=== PATIENT | male | born 1940 | race Caucasian/White ===

== ENCOUNTER 2016-05-26 23:06 | Inpatient (IN) | payer MEDICARE, BC ==
[2016-05-26] MEDS: SODIUM CHLORIDE 0.9% 500 ML IV SCH (23:30)
--- NOTE | 2016-05-26 23:46 | ED ---
General Adult HPI - General Chief complaint: Recheck/Abnormal Lab/Rx Stated complaint: weakness Time Seen by Provider: 05/26/16 23:30 Source: patient, EMS, RN notes reviewed Mode of arrival: EMS Limitations: no limitations - History of Present Illness Initial comments: Patient is a 75-year-old male with a extensive past medical history including pancreatic cancer, severe sepsis, abdominal obstructions, vomiting or embolus him. Patient presents via EMS for 1 evening of shaking and fever and chills. Patient reports that this happened to him in the past when he has had infections with his biliary stent. She reports some epigastric discomfort while lying on his side. Patient denies any nausea or vomiting at this time. Patient just reports feeling very fatigued and weak, and chilled. Patient reports that he's had no Motrin or Tylenol this evening. Patient also reports that over the past week he's had decreased urinary output. Patient denies any recent shortness of breath, chest pain, back pain, nausea vomiting, numbness or tingling, dysuria or hematuria, constipation or diarrhea, headaches or visual changes, or any other current symptoms - Related Data Home Medications Medication Instructions Recorded Confirmed Doxazosin [Cardura] 2 mg PO BID 04/11/16 05/27/16 Finasteride [Proscar] 5 mg PO DAILY 04/11/16 05/27/16 Insulin Glargine,Hum.rec.anlog 64 unit SQ HS 04/11/16 05/27/16 [Lantus Solostar] Omeprazole [PriLOSEC] 40 mg PO DAILY 04/11/16 05/27/16 Rivaroxaban [Xarelto] 20 mg PO DAILY 04/11/16 05/27/16 Sertraline [Zoloft] 50 mg PO DAILY 04/11/16 05/27/16 Simvastatin [Zocor] 20 mg PO HS 04/11/16 05/27/16 Tamsulosin HCl [Flomax] 0.4 mg PO DAILY 04/11/16 05/27/16 metFORMIN HCL 1,000 mg PO BID 04/11/16 05/27/16 Capecitabine [Xeloda] 1,000 mg PO DIRECTED 05/26/16 05/27/16 Magnesium Oxide [Mag-Ox] 400 mg PO DAILY 05/26/16 05/27/16 Allergies Allergy/AdvReac Type Severity Reaction Status Date / Time Penicillins Allergy Itching Verified 05/26/16 23:56 Review of Systems ROS Statement: Those systems with pertinent positive or pertinent negative responses have been documented in the HPI. ROS Other: All systems not noted in ROS Statement are negative. Past Medical History Past Medical History: Cancer, Heart Failure, Diabetes Mellitus, GERD/Reflux, Pulmonary Embolus ([place]) Additional Past Medical History / Comment(s): 10/08/[address] [facility] ER yesterday after having gone to his doctor's appt and was too weak to stand. Pt' s admitting diagnosis is fever and elevated serum alk phos. Pt's last admission was 07/29/14 with sepsis due to ascending cholangitis, fever, severe weakness and bacteremic per blood cultures. Other HX: Pancreatic CA- pt states diagnosed about 2 months ago, PE november 2013, [place] 2001, last chemo july 22 2014, bilateral tinnitis, severe GERD helped with current RX, BPH. Last Myocardial Infarction Date:: 2001 History of Any Multi-Drug Resistant Organisms: None Reported Past Surgical History: Back Surgery, Bowel Resection, Joint Replacement Additional Past Surgical History / Comment(s): [place]renfield filter placed november 2013;, EGD [facility] biliary stenting, 07/2014 ERCP which showed previous biliary stent migration-pt had stent replaced and dilatation, L subclavian mediport, R total hip replacement. "GOO" stent placedment from stomach to intestines. Past Anesthesia/Blood Transfusion Reactions: No Reported Reaction Additional Past Anesthesia/Blood Transfusion Reaction / Comment(s): Pt has never recieved blood. Past Psychological History: Depression Additional Psychological History / Comment(s): Pt states after previous admission and discharge he went to rehab for 6 weeks for strengthening. He is now back home where he lives alone. He is independent. He performs his own ADLs. He uses a walker or cane to ambulate. He drives a car. Patient uses [facility] nurse and home physical therapy. Smoking Status: Former smoker Past Alcohol Use History: None Reported Additional Past Alcohol Use History / Comment(s): Pt states he started smoking at age 11 or 11yrs and quit smoking in 1983. He states he was a 2ppd smoker. Pt states he was a past heavy drinker but has not drank in 2 yrs. Past Drug Use History: None Reported - Past Family History Father Family Medical History: Cancer Additional Family Medical History / Comment(s): Father at age 53 yrs of pancreatic cancer. Mother Family Medical History: No Reported History Additional Family Medical History / Comment(s): Mother lived to be 92 yrs old with no health problems known. General Exam - General Exam Comments Initial Comments: Patient is a 75-year-old male. Patient does not appear to be any acute distress. Patient is very pleasant and talkative. Limitations: no limitations General appearance: alert, in no apparent distress Head exam: Present: atraumatic, normocephalic, normal inspection Eye exam: Present: normal appearance, PERRL, EOMI. Absent: scleral icterus, conjunctival injection, periorbital swelling ENT exam: Present: normal exam, mucous membranes moist Neck exam: Present: normal inspection. Absent: tenderness, meningismus, lymphadenopathy Respiratory exam: Present: normal lung sounds bilaterally. Absent: respiratory distress, wheezes, rales, rhonchi, stridor Cardiovascular Exam: Present: regular rate, normal rhythm, normal heart sounds. Absent: systolic murmur, diastolic murmur, rubs, gallop, clicks GI/Abdominal exam: Present: soft, normal bowel sounds, other (Evidence of recent surgical incision over the umbilicus. Patient reports that this was done for a bowel obstruction at [facility].). Absent: distended, guarding, rebound, rigid Extremities exam: Present: normal inspection, full ROM, normal capillary refill. Absent: tenderness, pedal edema, joint swelling, calf tenderness Back exam: Present: normal inspection Neurological exam: Present: alert, oriented X3, CN II-XII intact Psychiatric exam: Present: normal affect, normal mood Skin exam: Present: warm, dry, intact, normal color. Absent: rash Course Vital Signs 05/26/16 05/27/16 05/27/16 23:22 01:40 02:39 Temperature 99.4 F Pulse Rate 100 95 78 Respiratory 20 18 16 Rate Blood Pressure 117/55 125/63 122/70 O2 Sat by Pulse 96 96 97 Oximetry Medical Decision Making - Medical Decision Making Patient is a 75-year-old male presenting to the with chief complaint of fever and chills and shaking for approximately 1 evening. Patient reports he's had a lengthy medical history including a biliary stent which became infected. Patient reports that the similar symptoms to when he had severe sepsis due to the biliary stent. Patient reports no specific abdominal pain at this time. Patient does have a low-grade fever upon arrival. Patient was given sepsis protocol with a 2 L bolus and IV antibiotics are started. Due to patient being ALLERGIC to penicillins restart patient on Levaquin and metronidazole for abdominal infection coverage. Patient labs are reviewed and are relatively negative except for elevated lactic acid of 4.4. We will repeat lactic acid and cardiac enzymes every 4 hours as directed. Patient's EKG shows no acute abnormalities or changes when reviewed from previous EKGs. Patient will be admitted as inpatient at this time and started on IV antibiotics. CT abdomen and pelvis did note that there are liver masses suspicious for metastatic disease process or inflammatory process. There is also evidence of pneumobilia. They do have stent at the head of the pancreas with drainage into the duodenum. The lung base shows some inflammatory process as well. Patient will be admitted at this time for increased weakness, fever or chills, liver metastases, pancreatic cancer and lactic acidosis. I discussed this case with Dr. Sanchez who reviewed the case with Dr. Olguin will be admitting the patient. - Lab Data Result diagrams: 05/26/16 23:48 05/26/16 23:48 Lab Results 05/26/16 05/26/16 05/26/16 Range/Units 23:48 23:48 23:48 WBC 7.0 (3.8-10.6) k/uL RBC 4.40 (4.30-5.90) m/uL Hgb 11.5 L (13.0-17.5) gm/dL Hct 36.6 L (39.0-53.0) % MCV 83.2 (80.0-100.0) fL MCH 26.1 (25.0-35.0) pg MCHC 31.4 (31.0-37.0) g/dL RDW 17.4 H (11.5-15.5) % Plt Count 161 (150-450) k/uL Neutrophils % 82 % Lymphocytes % 11 % Monocytes % 6 % Eosinophils % 1 % Basophils % 0 % Neutrophils # 5.7 (1.3-7.7) k/uL Lymphocytes # 0.8 L (1.0-4.8) k/uL Monocytes # 0.4 (0-1.0) k/uL Eosinophils # 0.1 (0-0.7) k/uL Basophils # 0.0 (0-0.2) k/uL Anisocytosis Slight PT (9.0-12.0) sec INR (<1.1) APTT (22.0-30.0) sec Sodium 139 (137-145) mmol/L Potassium 4.6 (3.5-5.1) mmol/L Chloride 103 (98-107) mmol/L Carbon Dioxide 22 (22-30) mmol/L Anion Gap 14 mmol/L BUN 10 (9-20) mg/dL Creatinine 0.80 (0.66-1.25) mg/dL Est GFR (MDRD) Af Amer >60 (>60 ml/min/1.73 sqM) Est GFR (MDRD) Non-Af >60 (>60 ml/min/1.73 sqM) Glucose 214 H (74-99) mg/dL Plasma Lactic Acid Terry (0.7-2.0) mmol/L Calcium 9.0 (8.4-10.2) mg/dL Total Bilirubin 0.6 (0.2-1.3) mg/dL AST 22 (17-59) U/L ALT 24 (21-72) U/L Alkaline Phosphatase 192 H (38-126) U/L Total Creatine Kinase 59 (55-170) U/L CK-MB (CK-2) 1.5 (0.0-2.4) ng/mL CK-MB (CK-2) Rel Index 2.5 Troponin I <0.012 (0.000-0.034) ng/mL Total Protein 6.8 (6.3-8.2) g/dL Albumin 3.5 (3.5-5.0) g/dL Cortisol 27 ug/dL Urine Color Urine Appearance (Clear) Urine pH (5.0-8.0) Ur Specific [place] (1.001-1.035) Urine Protein (Negative) Urine Glucose (UA) (Negative) Urine Ketones (Negative) Urine Blood (Negative) Urine Nitrate (Negative) Urine Bilirubin (Negative) Urine Urobilinogen (<2.0) mg/dL Ur Leukocyte Esterase (Negative) 05/26/16 05/26/16 05/27/16 Range/Units 23:48 23:48 01:00 WBC (3.8-10.6) k/uL RBC (4.30-5.90) m/uL Hgb (13.0-17.5) gm/dL Hct (39.0-53.0) % MCV (80.0-100.0) fL MCH (25.0-35.0) pg MCHC (31.0-37.0) g/dL RDW (11.5-15.5) % Plt Count (150-450) k/uL Neutrophils % % Lymphocytes % % Monocytes % % Eosinophils % % Basophils % % Neutrophils # (1.3-7.7) k/uL Lymphocytes # (1.0-4.8) k/uL Monocytes # (0-1.0) k/uL Eosinophils # (0-0.7) k/uL Basophils # (0-0.2) k/uL Anisocytosis PT 15.3 H (9.0-12.0) sec INR 1.6 (<1.1) APTT 29.2 (22.0-30.0) sec Sodium (137-145) mmol/L Potassium (3.5-5.1) mmol/L Chloride (98-107) mmol/L Carbon Dioxide (22-30) mmol/L Anion Gap mmol/L BUN (9-20) mg/dL Creatinine (0.66-1.25) mg/dL Est GFR (MDRD) Af Amer (>60 ml/min/1.73 sqM) Est GFR (MDRD) Non-Af (>60 ml/min/1.73 sqM) Glucose (74-99) mg/dL Plasma Lactic Acid Terry 4.4 H* (0.7-2.0) mmol/L Calcium (8.4-10.2) mg/dL Total Bilirubin (0.2-1.3) mg/dL AST (17-59) U/L ALT (21-72) U/L Alkaline Phosphatase (38-126) U/L Total Creatine Kinase (55-170) U/L CK-MB (CK-2) (0.0-2.4) ng/mL CK-MB (CK-2) Rel Index Troponin I (0.000-0.034) ng/mL Total Protein (6.3-8.2) g/dL Albumin (3.5-5.0) g/dL Cortisol ug/dL Urine Color Yellow Urine Appearance Clear (Clear) Urine pH 5.0 (5.0-8.0) Ur Specific [place] 1.012 (1.001-1.035) Urine Protein Negative (Negative) Urine Glucose (UA) Negative (Negative) Urine Ketones Negative (Negative) Urine Blood Negative (Negative) Urine Nitrate Negative (Negative) Urine Bilirubin Negative (Negative) Urine Urobilinogen <2.0 (<2.0) mg/dL Ur Leukocyte Esterase Negative (Negative) 05/27/16 00:50 EKG shows sinus tachycardia with PACs. There is evidence of left axis deviation. Also a right bundle cortney block. Ventricular rate of 105 bpm. PA interval 154 ms. QRS duration 116 ms. QTC is 356/470 ms. - Radiology Data Radiology results: report reviewed Chest x-ray shows no acute cardiopulmonary process. No significant interval change. CT abdomen and pelvis shows liver masses are suspicious for metastatic disease process or inflammatory process. There is pneumobilia. Extend again is in the head of the pancreas with drainage into the duodenum. There is reticular nodule pattern of the left lung base probably related to the plantar process of her metastatic process cannot be excluded. Stable benign-appearing sister and the spleen. The right total hip arthroplasty. Colonic diverticulosis. No significant interval change. Disposition Clinical Impression: Lactic acidosis, Pancreatic cancer metastasized to liver, Rigors, Fever, Weakness generalized, Fever in adult, Elevated alkaline phosphatase level, Abnormal blood sugar Disposition: ADMITTED IP TO THIS HOSP Condition: Stable Time of Disposition: 02:51
[2016-05-26] MEDS ORDERED: ACETAMINOPHEN IV (For NPO) 1,000 MG in EMPTY BAG 1 BAG IVPB STA (23:50)
[2016-05-26 23:57] LABS: Anisocytosis Slight; Basophils % (A) 0 %; CH 26.5; Eosinophils # (A) 0.1 k/uL (0-0.7); Eosinophils % (A) 1 %; HCT 36.6 % (39.0-53.0); HDW 2.71; HGB 11.5 gm/dL (13.0-17.5); Luc # (Auto) 0.03; Luc % (Auto) 0; Lymphocytes # (A) 0.8 k/uL (1.0-4.8); Lymphocytes % (A) 11 %; MCH 26.1 pg (25.0-35.0); MCHC 31.4 g/dL (31.0-37.0); MCV 83.2 fL (80.0-100.0); Mean Platelet Volume 8.8; Monocytes # (A) 0.4 k/uL (0-1.0); Monocytes % (A) 6 %; Neutrophils # (A) 5.7 k/uL (1.3-7.7); Neutrophils % (A) 82 %; RDW 17.4 % (11.5-15.5); WBC (Perox) 7.18
[2016-05-27 00:09] LABS: ALT 24 U/L (21-72); AST 22 U/L (17-59); Alkaline Phosphatase 192 U/L (38-126); Anion Gap 14 mmol/L; Blood Urea Nitrogen 10 mg/dL (9-20); Carbon Dioxide 22 mmol/L (22-30); Chloride 103 mmol/L (98-107); Glucose 214 mg/dL (74-99); Non-African American GFR(MDRD) >60 (>60 ml/min/1.73 sqM); Potassium 4.6 mmol/L (3.5-5.1); Sodium 139 mmol/L (137-145); Total Bilirubin 0.6 mg/dL (0.2-1.3); Total Protein 6.8 g/dL (6.3-8.2)
[2016-05-27 00:15] LABS: INR 1.6 (<1.1); Partial Thromboplastin Time 29.2 sec (22.0-30.0); Prothrombin Time 15.3 sec (9.0-12.0)
[2016-05-27 00:17] LABS: Creatine Kinase 59 U/L (55-170)
[2016-05-27 00:30] LABS: Creatine Kinase MB 1.5 ng/mL (0.0-2.4); Troponin I <0.012 ng/mL (0.000-0.034)
[2016-05-27] MEDS: SODIUM CHLORIDE 0.9% 500 ML IV SCH (00:31)
[2016-05-27] MEDS ORDERED: RX INFO: IV CONTRAST WAS GIVEN 1 EACH MISC MISCELLANE PRN (00:39)
[2016-05-27 01:22] LABS: Appearance,Urine Clear (Clear); Bilirubin,Urine Negative (Negative); Glucose,Urine (UA) Negative (Negative); Ketones,Urine Negative (Negative); Leukocyte Esterase,Urine Negative (Negative); Nitrite,Urine Negative (Negative); Protein,Urine Negative (Negative); Specific Gravity,Urine 1.012 (1.001-1.035); UA Billing (MACRO vs. MICRO) CHEM; Urobilinogen,Urine <2.0 mg/dL (<2.0)
--- NOTE | 2016-05-27 01:25 | XR ---
EXAMINATION TYPE: XR chest 2V DATE OF EXAM: 05/27/2016 12:50 AM COMPARISON: April 11, 2016 HISTORY: Weakness abnormal labs fever. TECHNIQUE: Frontal and lateral views of the chest are obtained. FINDINGS: Left-sided Mediport catheter is noted in place. Mild chronic interstitial lung changes are suggested bilaterally. There is no focal air space opacity, pleural effusion, or pneumothorax seen. The cardiac silhouette size is within normal limits. The osseous structures are intact. IMPRESSION: No acute cardiopulmonary process. No significant interval change. Chronic interstitial lung changes are suggested bilaterally.
--- NOTE | 2016-05-27 01:39 | CT ---
EXAMINATION TYPE: CT abdomen pelvis w con DATE OF EXAM: 05/27/2016 1:13 AM COMPARISON: April 12, 2016. HISTORY: weakness, abnormal labs, hx of pancreatic ca with stents placed. CT DLP: 1188.0 mGycm Automated exposure control for dose reduction was used. TECHNIQUE: Helical acquisition of images was performed from the lung bases through the pelvis. CONTRAST: Performed without Oral Contrast and with IV Contrast, patient injected with 100 mL of Omnipaque 300. FINDINGS: LUNG BASES: Again noted are reticulonodular pattern of left lung base and is probably related to infl ammatory process. Underlying metastatic disease process in the left lung base cannot be excluded. LIVER/GB: There is no significant change in the pneumobilia with air collection in the biliary ducts. Low-density areas are noted in the liver in the axial image 34 and possibility of metastatic disease process of liver cannot be excluded. The changes could also be related to inflammatory process. PANCREAS: No significant change is noted in the stent in the head of the pancreas draining into the d uodenum. Small area of pancreas is noted without significant change and with known history of pancrea tic carcinoma with possible postsurgical changes. SPLEEN: Small stable cystic lesion is noted in the spleen measuring 1.8 cm and is probably a benign c yst. ADRENALS: Right adrenal gland appears unremarkable. Stable nodularity is noted in the left adrenal gl and. KIDNEYS: No significant abnormality is seen. RETROPERITONEAL ADENOPATHY: None visualized IVC filter is noted in place. Atherosclerotic calcification is noted in the abdominal aorta and iliac arteries with atelectatic domingo nges in the distal abdominal aorta. REPRODUCTIVE ORGANS: No significant abnormality is seen URINARY BLADDER: No significant abnormality is seen. PELVIC ADENOPATHY: None visualized. OSSEOUS STRUCTURES: Postsurgical changes of right total hip arthroplasty. BOWEL: Colonic diverticulosis is noted. Moderate amount of fecal material is noted in the colon. Mathew endix appears unremarkable. OTHER: IMPRESSION: 1. Liver masses are noted suspicious for metastatic disease process or inflammatory process. There is pneumobilia. 2. Stent is again noted in the head of the pancreas with drainage into the duodenum. 3. Stable reticulonodular pattern of left lung base probably related to inflammatory process however metastatic process cannot be excluded. 4. Stable benign-appearing cyst in the spleen. 5. Right total hip arthroplasty. 6. Colonic diverticulosis. 7. No significant interval change.
--- NOTE | 2016-05-27 02:02 | XR ---
EXAMINATION TYPE: XR KUB DATE OF EXAM: 05/27/2016 12:50 AM CLINICAL HISTORY: Weakness abnormal labs fever history of pancreatic stents. TECHNIQUE: 2 frontal supine radiographs of abdomen were obtained. COMPARISON: None. FINDINGS: Scattered gas is seen in non-distended small bowel loops. Gas and fecal material is seen in non-distended colon. There is no visceromegaly, pneumoperitoneum, or abnormal calcification appr eciated. The lung bases are clear and the osseous structures are intact. Cholecystectomy changes are noted. Moderate degenerative changes are present in the thoracolumbar spi ne with S-shaped scoliosis. IVC filter is noted. Total right hip arthroplasty changes are noted. IMPRESSION: Overall nonobstructive bowel gas pattern.
[2016-05-27] MEDS ORDERED: metroNIDAZOLE-NS PMX 500 MG in SALINE 1 100ML.BAG IVPB STA (02:03)
[2016-05-27] MEDS ORDERED: LEVOFLOXACIN 750MG-D5W PMX 750 MG in DEXTROSE/WATER 1 150ML.BAG IVPB STA (02:05)
[2016-05-27] MEDS ORDERED: SODIUM CHLORIDE 0.9% 2,000 ML IV ONE (02:14)
[2016-05-27] MEDS ORDERED: HYDROmorphone 1 MG/ML 1 ML SYRINGE IV PRN (02:26)
[2016-05-27] MEDS ORDERED: ALPRAZolam 0.25 MG TAB PO PRN (02:26)
[2016-05-27] MEDS ORDERED: NALOXONE 0.4 MG/ML 1 ML VIAL IV PRN (02:26)
[2016-05-27] MEDS ORDERED: KETOROLAC 30 MG/ML 1 ML VIAL IVP PRN (02:26)
[2016-05-27] MEDS ORDERED: NON-FORMULARY DRUG (Capecitabine [Xeloda] 1,000 MG) PO SCH (02:45)
[2016-05-27 04:41] LABS: Creatine Kinase 53 U/L (55-170)
[2016-05-27 04:55] LABS: Creatine Kinase MB 0.9 ng/mL (0.0-2.4); Troponin I <0.012 ng/mL (0.000-0.034)
[2016-05-27 07:48] LABS: Glucose,Whole Blood 175 mg/dL (75-99)
[2016-05-27] MEDS: INSULIN LISPRO (humaLOG) 300 UNIT/3 ML VIAL SQ SCH ×3 (08:39→17:39)
[2016-05-27] MEDS: SODIUM CHLORIDE 0.9% 1,000 ML IV SCH ×3 (08:41→17:44)
[2016-05-27] MEDS: metFORMIN 500 MG TAB PO SCH ×2 (10:01→17:39)
[2016-05-27] MEDS: DOXAZOSIN 2 MG TAB PO SCH ×2 (10:01→21:03)
[2016-05-27 10:02] LABS: Hemoglobin A1C 6.8 % (4.2-6.1)
[2016-05-27] MEDS: PANTOPRAZOLE 40 MG TABLET PO SCH (10:02)
[2016-05-27] MEDS: TAMSULOSIN 0.4 MG CAP.ER.24H PO SCH (10:02)
[2016-05-27] MEDS: SERTRALINE 50 MG TAB PO SCH (10:03)
[2016-05-27] MEDS: FINASTERIDE 5 MG TAB PO SCH (10:03)
[2016-05-27] MEDS: MAGNESIUM OXIDE 400 MG TAB PO SCH (10:03)
[2016-05-27 12:55] LABS: Glucose,Whole Blood 94 mg/dL (75-99)
[2016-05-27 13:06] LABS: Creatine Kinase 44 U/L (55-170)
[2016-05-27 13:16] LABS: Troponin I <0.012 ng/mL (0.000-0.034)
[2016-05-27] MEDS: metroNIDAZOLE-NS PMX 500 MG in SALINE 1 100ML.BAG IVPB SCH ×3 (13:36→23:31)
--- NOTE | 2016-05-27 14:32 | P.HPIM ---
History of Present Illness H&P Date: 05/27/16 Chief Complaint: Chills and tremors Past Medical History Past Medical History: Cancer, Heart Failure, Diabetes Mellitus, GERD/Reflux, Myocardial Infarction ([place]), Osteoarthritis (OA), Pneumonia, Prostate Disorder, Pulmonary Embolus (PE) Additional Past Medical History / Comment(s): Pt admitted 04/11/16 with gram negative bacteremia, left lower pneumonia. Other medical hx: sepsis, pancreatic CA with past IV chemo and now oral chemo, gastric outlet obstruction , PE november 2013, [place] 2001, bilateral tinnitis, severe GERD, BPH, arthritis lower back with chronic back pain, . Last Myocardial Infarction Date:: 2001 History of Any Multi-Drug Resistant Organisms: None Reported Past Surgical History: Back Surgery, Bowel Resection, Joint Replacement Additional Past Surgical History / Comment(s): ivet filter placed november 2013;, EGD wt biliary stenting, 07/2014 ERCP which showed previous biliary stent migration-pt had stent replaced and dilatation, colonoscopy, L subclavian mediport, R total hip replacement. "GOO" stent placedment from stomach to intestines, 04/2016 gastric bypass was done at [facility]. Past Anesthesia/Blood Transfusion Reactions: No Reported Reaction Additional Past Anesthesia/Blood Transfusion Reaction / Comment(s): Pt has never recieved blood. Past Psychological History: Depression Additional Psychological History / Comment(s): Pt states after previous admission and discharge he went to rehab for 6 weeks for strengthening. He is now back home where he lives alone. He is independent. He performs his own ADLs. He uses a walker or cane to ambulate. He drives a car. Patient uses [facility] nurse and home physical therapy-states thru [facility]. Smoking Status: Former smoker Past Alcohol Use History: None Reported Additional Past Alcohol Use History / Comment(s): Pt states he started smoking at age 11 (1954) and quit smoking in 1983. He states he was a 2ppd smoker. Pt states he was a past heavy drinker but has not drank in 2-3 yrs. Past Drug Use History: None Reported - Past Family History Father Family Medical History: Cancer Additional Family Medical History / Comment(s): Father at age 53 yrs of pancreatic cancer. Mother Family Medical History: No Reported History Additional Family Medical History / Comment(s): Mother lived to be 92 yrs old with no health problems known. Medications and Allergies Home Medications Medication Instructions Recorded Confirmed Type Doxazosin [Cardura] 2 mg PO BID 04/11/16 05/27/16 History Finasteride [Proscar] 5 mg PO DAILY 04/11/16 05/27/16 History Insulin Glargine,Hum.rec.anlog 64 unit SQ HS 04/11/16 05/27/16 History [Lantus Solostar] Omeprazole [PriLOSEC] 40 mg PO DAILY 04/11/16 05/27/16 History Rivaroxaban [Xarelto] 20 mg PO DAILY 04/11/16 05/27/16 History Sertraline [Zoloft] 50 mg PO DAILY 04/11/16 05/27/16 History Simvastatin [Zocor] 20 mg PO HS 04/11/16 05/27/16 History Tamsulosin HCl [Flomax] 0.4 mg PO DAILY 04/11/16 05/27/16 History metFORMIN HCL 1,000 mg PO BID 04/11/16 05/27/16 History Capecitabine [Xeloda] 1,000 mg PO DIRECTED 05/26/16 05/27/16 History Magnesium Oxide [Mag-Ox] 400 mg PO DAILY 05/26/16 05/27/16 History Allergies Allergy/AdvReac Type Severity Reaction Status Date / Time Penicillins Allergy Itching Verified 05/26/16 23:56 Physical Exam Vitals: Vital Signs Temp Pulse Resp BP Pulse Ox 05/27/16 12:36 98.5 F 93 18 122/58 99 05/27/16 10:06 94 18 134/83 95 05/27/16 07:29 97.8 F 89 17 112/51 98 05/27/16 05:36 97.1 F L 77 18 123/72 98 Results CBC & Chem 7: 05/26/16 23:48 05/26/16 23:48 Labs: Abnormal Lab Results - Last 24 Hours (Table) 05/27/16 05/27/16 05/27/16 Range/Units 04:01 04:01 04:01 POC Glucose (mg/dL) (75-99) mg/dL Hemoglobin A1c 6.8 H (4.2-6.1) % Plasma Lactic Acid Terry 2.8 H* (0.7-2.0) mmol/L Total Creatine Kinase 53 L (55-170) U/L 05/27/16 Range/Units 07:45 POC Glucose (mg/dL) 175 H (75-99) mg/dL Hemoglobin A1c (4.2-6.1) % Plasma Lactic Acid Terry (0.7-2.0) mmol/L Total Creatine Kinase (55-170) U/L Thrombosis Risk Factor Assmnt - Choose All That Apply Any of the Below Risk Factors Present?: Yes Each Factor Represents 1 point: Obesity (BMI >25) Other Risk Factors: Yes Each Risk Factor Represents 2 Points: Malignancy Each Risk Factor Represents 3 Points: Age 75 years or older, History of DVT/PE Other congenital or acquired thrombophilia - If yes, enter type in comment: No Thrombosis Risk Factor Assessment Total Risk Factor Score: 9 Thrombosis Risk Factor Assessment Level: High Risk
[2016-05-27] MEDS: cefTRIAXone 2,000 MG in SODIUM CHLORIDE 0.9% 100 ML IVPB SCH (15:39)
--- NOTE | 2016-05-27 17:35 | P.HPIM ---
History of Present Illness H&P Date: 05/27/16 (Patient evaluated at 11 AM) Chief Complaint: Chills and rigors Patient is a 75-year-old white male with complex medical history significant for pancreatic cancer, severe sepsis, gastric outlet obstruction with stent placement, and recent hospitalization for E. coli bacteremia thought to be abdominal in origin. Patient presented to the emergency department with complains of chills and rigors that started approximately 3 hours prior to admission. Patient reports similar symptoms when he is been sick in the past. No history of fevers, nausea, vomiting, shortness of breath, chest pain, or abdominal pain. No leg swelling. No history of constipation or diarrhea. No recent illness. Patient states that he just started getting his appetite back. In the emergency department, patient was given a 2 L fluid bolus and started on IV antibiotics in the form of Levaquin and Flagyl. Patient did have an elevated lactic acid of 4.4 with a repeat lactic acid of 2.8. CT of the abdomen and pelvis with evidence of liver masses suspicious for metastatic disease process or inflammatory process and evidence of pneumobilia. No biliary obstruction noted. Lung bases with some inflammatory changes as well. Patient was admitted to the oncology floor for increased weakness, chills, liver metastasis, lactic acidosis, and pancreatic cancer. Upon examination, patient reports continued episodes of chills and tremors this morning. Patient states he feels weak. Patient denies any other symptoms. Afebrile. Hemodynamically stable. Past Medical History Past Medical History: Cancer, Heart Failure, Diabetes Mellitus, GERD/Reflux, Myocardial Infarction ([place]), Osteoarthritis (OA), Pneumonia, Prostate Disorder, Pulmonary Embolus (PE) Additional Past Medical History / Comment(s): Pt admitted 04/11/16 with gram negative bacteremia, left lower pneumonia. Other medical hx: sepsis, pancreatic CA with past IV chemo and now oral chemo, gastric outlet obstruction , PE november 2013, [place] 2001, bilateral tinnitis, severe GERD, BPH, arthritis lower back with chronic back pain, . Last Myocardial Infarction Date:: 2001 History of Any Multi-Drug Resistant Organisms: None Reported Past Surgical History: Back Surgery, Bowel Resection, Joint Replacement Additional Past Surgical History / Comment(s): ivet filter placed november 2013;, EGD wt biliary stenting, 07/2014 ERCP which showed previous biliary stent migration-pt had stent replaced and dilatation, colonoscopy, L subclavian mediport, R total hip replacement. "GOO" stent placedment from stomach to intestines, 04/2016 gastric bypass was done at [facility]. Past Anesthesia/Blood Transfusion Reactions: No Reported Reaction Additional Past Anesthesia/Blood Transfusion Reaction / Comment(s): Pt has never recieved blood. Past Psychological History: Depression Additional Psychological History / Comment(s): Pt states after previous admission and discharge he went to rehab for 6 weeks for strengthening. He is now back home where he lives alone. He is independent. He performs his own ADLs. He uses a walker or cane to ambulate. He drives a car. Patient uses Homecare nurse and home physical therapy-[facility]. Smoking Status: Former smoker Past Alcohol Use History: None Reported Additional Past Alcohol Use History / Comment(s): Pt states he started smoking at age 11 (1953) and quit smoking in 1983. He states he was a 2ppd smoker. Pt states he was a past heavy drinker but has not drank in 2-3 yrs. Past Drug Use History: None Reported - Past Family History Father Family Medical History: Cancer Additional Family Medical History / Comment(s): Father at age 53 yrs of pancreatic cancer. Mother Family Medical History: No Reported History Additional Family Medical History / Comment(s): Mother lived to be 92 yrs old with no health problems known. Medications and Allergies Home Medications Medication Instructions Recorded Confirmed Type Doxazosin [Cardura] 2 mg PO BID 04/11/16 05/27/16 History Finasteride [Proscar] 5 mg PO DAILY 04/11/16 05/27/16 History Insulin Glargine,Hum.rec.anlog 64 unit SQ 04/11/16 05/27/16 History [Lantus Solostar] Omeprazole [PriLOSEC] 40 mg PO DAILY 04/11/16 05/27/16 History Rivaroxaban [Xarelto] 20 mg PO DAILY 04/11/16 05/27/16 History Sertraline [Zoloft] 50 mg PO DAILY 04/11/16 05/27/16 History Simvastatin [Zocor] 20 mg PO HS 04/11/16 05/27/16 History Tamsulosin HCl [Flomax] 0.4 mg PO DAILY 04/11/16 05/27/16 History metFORMIN HCL 1,000 mg PO BID 04/11/16 05/27/16 History Capecitabine [Xeloda] 1,000 mg PO DIRECTED 05/26/16 05/27/16 History Magnesium Oxide [Mag-Ox] 400 mg PO DAILY 05/26/16 05/27/16 History Allergies Allergy/AdvReac Type Severity Reaction Status Date / Time Penicillins Allergy Itching Verified 05/26/16 23:56 Physical Exam Vitals: Vital Signs Temp Pulse Pulse Resp BP BP Pulse Ox 05/27/16 16:00 51 L 18 05/27/16 15:00 98.3 F 51 L 18 114/61 97 05/27/16 13:30 98.0 F 113 H 18 114/57 99 05/27/16 12:36 98.5 F 93 18 122/58 99 05/27/16 10:06 94 18 134/83 95 05/27/16 07:29 97.8 F 89 17 112/51 98 05/27/16 05:36 97.1 F L 77 18 123/72 98 Intake and Output 05/27/16 05/27/16 05/27/16 06:59 14:59 22:59 Output Total 250 Balance -250 Output: Urine 250 GENERAL: Pt awake and alert, well-appearing, well-nourished, and in no acute distress. HEAD: Atraumatic, normocephalic. EYES: Pupils equal, round, and reactive to light, extraocular movements intact, sclera anicteric, conjunctiva are normal. ENT: Oropharynx clear without exudates. Moist mucous membranes. Tongue smooth, pink, no lesions, protrudes in midline. NECK:Normal range of motion, supple without lymphadenopathy or JVD. No carotid bruits. Thyroid midline, small and firm without palpable masses. LUNGS: Breath sounds clear to auscultation bilaterally. No wheezes, rales, or rhonchi. HEART: Heart S1, S2, no S3 or S4. Regular rate and rhythm. No murmurs, rubs or gallops. ABDOMEN: Soft, base, nontender, nondistended, normoactive bowel sounds. No guarding, no rebound. No masses or organomegaly appreciated. EXTREMITIES: 2+ peripheral pulses. No edema. No calf tenderness. NEUROLOGICAL: Pt oriented x 3. Cranial nerves II through XII grossly intact. Strength and sensation grossly intact. PSYCH: Normal mood, normal affect. SKIN: Warm, dry, intact. Abdominal surgical incision with black scab inferiorly , no erythema or purulent drainage. Results CBC & Chem 7: 05/26/16 23:48 05/26/16 23:48 Labs: Abnormal Lab Results - Last 24 Hours (Table) 05/27/16 05/27/16 05/27/16 Range/Units 04:01 04:01 04:01 POC Glucose (mg/dL) (75-99) mg/dL Hemoglobin A1c 6.8 H (4.2-6.1) % Plasma Lactic Acid Terry 2.8 H* (0.7-2.0) mmol/L Total Creatine Kinase 53 L (55-170) U/L 05/27/16 05/27/16 Range/Units 07:45 12:25 POC Glucose (mg/dL) 175 H (75-99) mg/dL Hemoglobin A1c (4.2-6.1) % Plasma Lactic Acid Terry (0.7-2.0) mmol/L Total Creatine Kinase 44 L (55-170) U/L Thrombosis Risk Factor Assmnt - DVT/VTE Prophylaxis DVT/VTE Prophylaxis: Pharmacologic Prophylaxis ordered, Mechanical Prophylaxis ordered - Choose All That Apply Any of the Below Risk Factors Present?: Yes Each Factor Represents 1 point: Obesity (BMI >25) Other Risk Factors: Yes Each Risk Factor Represents 2 Points: Malignancy Each Risk Factor Represents 3 Points: Age 75 years or older, History of DVT/PE Other congenital or acquired thrombophilia - If yes, enter type in comment: No Thrombosis Risk Factor Assessment Total Risk Factor Score: 9 Thrombosis Risk Factor Assessment Level: High Risk Assessment and Plan Plan: Impression: 1. Chills, rigors, present on admission, with evidence of lactic acidosis. 2. Elevated random blood glucose. 3. Elevated alkaline phosphatase, present on admission. 4. History of pancreatic cancer with gastric outlet obstruction status post stent placement with evidence of liver masses suspicious for metastatic disease and pneumobilia. 5. Stable reticulonodular pattern of left lung base, metastatic process is not excluded. 6. Colonic diverticulosis. 7. History of GERD. 8. Diabetes mellitus type 2, hemoglobin A1c 6.8. 9. Hyperlipidemia. 10. Hypertension. 11. History of pulmonary embolism status post Mojave filter placement on Cymbalta. 12. BPH. 13. Anemia of malignancy. 14. History of myocardial infarction. 15. History of recent E. coli bacteremia. 16. Chronic back pain with history of osteoarthritis. 17. History of small bowel obstruction status post bowel resection. 18. History of depression, stable. 19. Gait dysfunction. Patient uses cane or walker. 20. History of nicotine dependence. 21. History of EtOH abuse, quit approximately 3 years ago. Plan: Patient has been admitted to the oncology unit with consult to oncology service and infectious disease service. Patient is currently receiving IV antibiotics in the form of Levaquin and Flagyl. All medications have been reviewed and resumed. Lantus currently on hold. Will check blood sugars before meals at bedtime. Continue supportive treatment and pain management. Continue GI and DVT prophylaxis. Repeat CBC, CMP, and lactic acid in a.m. The above impression and plan have been discussed and directed by Dr. Olguin. Moo COPPOLA acting as scribe for Dr. Olguin.
[2016-05-27 17:37] LABS: Glucose,Whole Blood 122 mg/dL (75-99)
[2016-05-27] MEDS: RIVAROXABAN 10 MG TAB PO SCH (17:39)
--- NOTE | 2016-05-27 18:26 | P.CONS ---
History of Present Illness - Reason for Consult Consult date: 05/27/16 pancreatic malignancy Requesting physician: Moo Hinojosa - Chief Complaint rigors - History of Present Illness Mr. Mariano is a very pleasant male patient of Dr. Siu with a history of locally advanced pancreatic cancer. Patient presented in May 2014 with obstructive jaundice. Patient was seen by Dr. Clark, ERCP with stent placement and biopsy, path confirmed adenocarcinoma. Due to the location of the tumor to the vasculature neoadjuvant chemotherapy was recommended. Patient started treatment with gemzar and abraxane, and during treatment course, 2 cycles, he had complications of cholangitis, sepsis, stent migration and occlusion. [facility]. Imaging did show improvement in the pancreatic head mass. Patient was reevaluated by Dr. Benitez but not felt to be a surgical candidate. He was then switched to single agent gemzar because of all the complications of doublet therapy, and completed 5 day 1 & 8 cycles and day 1 of 6th cycle. Treatment has been on hold since late 2014/early 2015. Patient was started on oral Xeloda in Apr 2016. He took it for 1 week on, 1 week off, for cycle 2 duration was increased to 2 weeks on 1 week off, he is currently on his week off. Patient has been hospitalized now for a third time since March 2016. Patient states that when he was seen in the office yesterday he felt fine. He went home and about 7:00 last night he had an episode of severe shaking that he could not control. Patient is unsure if he had a fever. Patient did call 911. Patient has been admitted with septic workup. When seen patient denied any oral irritation, nausea, vomiting, cough or shortness of breath, chest pain, nausea or vomiting, abdominal pain, heartburn, indigestion, dysuria, hematuria, diarrhea or constipation, patient is ambulatory independently. Patient states that this time feeling okay. Review of Systems All systems: negative Constitutional: Reports as per HPI Past Medical History Past Medical History: Cancer, Heart Failure, Diabetes Mellitus, GERD/Reflux, Myocardial Infarction ([place]), Osteoarthritis (OA), Pneumonia, Prostate Disorder, Pulmonary Embolus (PE) Additional Past Medical History / Comment(s): Pt admitted 04/11/16 with gram negative bacteremia, left lower pneumonia. Other medical hx: sepsis, pancreatic CA with past IV chemo and now oral chemo, gastric outlet obstruction , PE november 2013, [place] 2001, bilateral tinnitis, severe GERD, BPH, arthritis lower back with chronic back pain, . Last Myocardial Infarction Date:: 2001 History of Any Multi-Drug Resistant Organisms: None Reported Past Surgical History: Back Surgery, Bowel Resection, Joint Replacement Additional Past Surgical History / Comment(s): ivet filter placed november 2013;, EGD wtih biliary stenting, 07/2014 ERCP which showed previous biliary stent migration-pt had stent replaced and dilatation, colonoscopy, L subclavian mediport, R total hip replacement. "GOO" stent placedment from stomach to intestines, 04/2016 gastric bypass was done at [facility]. Past Anesthesia/Blood Transfusion Reactions: No Reported Reaction Additional Past Anesthesia/Blood Transfusion Reaction / Comm: Pt has never recieved blood. Past Psychological History: Depression Additional Psychological History / Comment(s): Pt states after previous admission and discharge he went to rehab for 6 weeks for strengthening. He is now back home where he lives alone. He is independent. He performs his own ADLs. He uses a walker or cane to ambulate. He drives a car. Patient uses [facility] nurse and [facility] physical [facility]. Smoking Status: Former smoker Past Alcohol Use History: None Reported Additional Past Alcohol Use History / Comment(s): Pt states he started smoking at age 11 (2) and quit smoking in 1983. He states he was a 2ppd smoker. Pt states he was a past heavy drinker but has not drank in 2-3 yrs. Past Drug Use History: None Reported - Past Family History Father Family Medical History: Cancer Additional Family Medical History / Comment(s): Father at age 53 yrs of pancreatic cancer. Mother Family Medical History: No Reported History Additional Family Medical History / Comment(s): Mother lived to be 92 yrs old with no health problems known. Medications and Allergies Home Medications Medication Instructions Recorded Confirmed Type Doxazosin [Cardura] 2 mg PO BID 04/11/16 05/27/16 History Finasteride [Proscar] 5 mg PO DAILY 04/11/16 05/27/16 History Insulin Glargine,Hum.rec.anlog 64 unit SQ HS 04/11/16 05/27/16 History [Lantus Solostar] Omeprazole [PriLOSEC] 40 mg PO DAILY 04/11/16 05/27/16 History Rivaroxaban [Xarelto] 20 mg PO DAILY 04/11/16 05/27/16 History Sertraline [Zoloft] 50 mg PO DAILY 04/11/16 05/27/16 History Simvastatin [Zocor] 20 mg PO HS 04/11/16 05/27/16 History Tamsulosin HCl [Flomax] 0.4 mg PO DAILY 04/11/16 05/27/16 History metFORMIN HCL 1,000 mg PO BID 04/11/16 05/27/16 History Capecitabine [Xeloda] 1,000 mg PO DIRECTED 05/26/16 05/27/16 History Magnesium Oxide [Mag-Ox] 400 mg PO DAILY 05/26/16 05/27/16 History Allergies Allergy/AdvReac Type Severity Reaction Status Date / Time Penicillins Allergy Itching Verified 05/26/16 23:56 Physical Exam Vitals: Vital Signs Temp Pulse Pulse Resp BP BP Pulse Ox 05/27/16 16:00 51 L 18 05/27/16 15:00 98.3 F 51 L 18 114/61 97 05/27/16 13:30 98.0 F 113 H 18 114/57 99 05/27/16 12:36 98.5 F 93 18 122/58 99 05/27/16 10:06 94 18 134/83 95 05/27/16 07:29 97.8 F 89 17 112/51 98 05/27/16 05:36 97.1 F L 77 18 123/72 98 Intake and Output 05/27/16 05/27/16 05/27/16 06:59 14:59 22:59 Output Total 250 Balance -250 Output: Urine 250 - Constitutional General appearance: average body habitus, cooperative, no acute distress - EENT Eyes: anicteric sclerae, normal appearance ENT: normal oropharynx - Neck Neck: no lymphadenopathy - Respiratory Respiratory: bilateral: CTA - Cardiovascular Rhythm: regular Heart sounds: normal: S1, S2 leg Peripheral Edema: bilateral: Trace - Gastrointestinal General gastrointestinal: no absent bowel sounds, no decreased bowel sounds, no distended, no hepatomegaly, no hyperactive bowel sounds, normal bowel sounds, no organomegaly, no rigid, no scaphoid, soft, no splenomegaly, no tenderness, no umbilical hernia, no ventral hernia - Integumentary Integumentary: pale - Neurologic Neurologic: CNII-XII intact - Musculoskeletal Musculoskeletal: strength equal bilaterally - Psychiatric Psychiatric: A&O x's 3, appropriate affect, intact judgment & insight Results CBC & Chem 7: 05/26/16 23:48 05/26/16 23:48 Labs: Abnormal Lab Results - Last 24 Hours (Table) 05/27/16 05/27/16 05/27/16 Range/Units 04:01 04:01 04:01 POC Glucose (mg/dL) (75-99) mg/dL Hemoglobin A1c 6.8 H (4.2-6.1) % Plasma Lactic Acid Terry 2.8 H* (0.7-2.0) mmol/L Total Creatine Kinase 53 L (55-170) U/L 05/27/16 05/27/16 05/27/16 Range/Units 07:45 12:25 17:34 POC Glucose (mg/dL) 175 H 122 H (75-99) mg/dL Hemoglobin A1c (4.2-6.1) % Plasma Lactic Acid Terry (0.7-2.0) mmol/L Total Creatine Kinase 44 L (55-170) U/L Chest x-ray: report reviewed Abdominal x-ray: report reviewed CT scan - abdomen: report reviewed CT scan - pelvis: report reviewed Assessment and Plan (1) Pancreatic cancer metastasized to liver Narrative/Plan: Patient has just recently been started on oral Xeloda, twice a day, 2 weeks on 1 week off. Patient is currently on his week off. No acute changes to patient' s plan of care for malignancy. Patient was just seen yesterday, will keep current follow up plan. Pt was instructed not to start next cycle of Xeloda until abx completed, he verbalized understanding. Status: Acute (2) Rigors Narrative/Plan: Pancultures ordered,results pending, pt is on empiric antibiotics. Chest x-ray and abdominal x-ray reports do not discuss any acute process. No significant interval change on CT report of abdomen and pelvis. Status: Acute
[2016-05-27 20:26] LABS: Glucose,Whole Blood 187 mg/dL (75-99)
[2016-05-27] MEDS: ATORVASTATIN 10 MG TAB PO SCH (21:03)
[2016-05-27] MEDS ORDERED: LEVOFLOXACIN 750MG-D5W PMX 750 MG in DEXTROSE/WATER 1 150ML.BAG IVPB SCH (22:30)
[2016-05-28] MEDS: SODIUM CHLORIDE 0.9% 1,000 ML IV SCH ×2 (05:34→11:55)
[2016-05-28] MEDS: metroNIDAZOLE-NS PMX 500 MG in SALINE 1 100ML.BAG IVPB SCH ×4 (05:34→23:41)
[2016-05-28 08:07] LABS: Anisocytosis Slight; Basophils % (A) 0 %; CHCM 31.2; Eosinophils # (A) 0.1 k/uL (0-0.7); Eosinophils % (A) 1 %; HCT 32.9 % (39.0-53.0); HDW 2.61; HGB 10.3 gm/dL (13.0-17.5); Hypochromasia Slight; Luc # (Auto) 0.11; Luc % (Auto) 2; Lymphocytes # (A) 1.7 k/uL (1.0-4.8); Lymphocytes % (A) 27 %; MCHC 31.2 g/dL (31.0-37.0); MCV 83.4 fL (80.0-100.0); Mean Platelet Volume 7.3; Monocytes # (A) 0.4 k/uL (0-1.0); Monocytes % (A) 6 %; Neutrophils # (A) 4.1 k/uL (1.3-7.7); Neutrophils % (A) 65 %; RBC 3.94 m/uL (4.30-5.90); RDW 17.5 % (11.5-15.5); WBC 6.4 k/uL (3.8-10.6); WBC (Perox) 6.81
[2016-05-28 08:13] LABS: Glucose,Whole Blood 95 mg/dL (75-99)
[2016-05-28] MEDS: INSULIN LISPRO (humaLOG) 300 UNIT/3 ML VIAL SQ SCH ×3 (08:15→17:45)
[2016-05-28 08:16] LABS: ALT 27 U/L (21-72); AST 15 U/L (17-59); Alkaline Phosphatase 145 U/L (38-126); Anion Gap 10 mmol/L; Blood Urea Nitrogen 7 mg/dL (9-20); Calcium 8.1 mg/dL (8.4-10.2); Carbon Dioxide 24 mmol/L (22-30); Chloride 106 mmol/L (98-107); Glucose 99 mg/dL (74-99); Non-African American GFR(MDRD) >60 (>60 ml/min/1.73 sqM); Potassium 3.9 mmol/L (3.5-5.1); Sodium 140 mmol/L (137-145); Total Bilirubin 0.7 mg/dL (0.2-1.3); Total Protein 5.6 g/dL (6.3-8.2)
[2016-05-28] MEDS: TAMSULOSIN 0.4 MG CAP.ER.24H PO SCH (08:16)
[2016-05-28] MEDS: DOXAZOSIN 2 MG TAB PO SCH ×2 (08:16→21:47)
[2016-05-28] MEDS: MAGNESIUM OXIDE 400 MG TAB PO SCH (08:16)
[2016-05-28] MEDS: metFORMIN 500 MG TAB PO SCH ×2 (08:16→18:19)
[2016-05-28] MEDS: PANTOPRAZOLE 40 MG TABLET PO SCH (08:16)
[2016-05-28] MEDS: FINASTERIDE 5 MG TAB PO SCH (08:16)
[2016-05-28] MEDS: SERTRALINE 50 MG TAB PO SCH (08:17)
--- NOTE | 2016-05-28 09:55 | CONS ---
DATE OF CONSULTATION: DATE OF SERVICE: 05/27/2016 REASON FOR CONSULTATION: Lactic acidosis and possible sepsis. HISTORY OF PRESENT ILLNESS: The patient is a 75-year-old male with a past medical history significant for low-grade cancer of the pancreatic head, history of gastric outlet obstruction with a stent placement and who was recently hospitalized in April of 2016 with an E. coli bacteremia thought to be abdominal origin. The patient did have a CT of the abdomen and pelvis that was negative for any inflammation or any abscess formation. The patient's follow-up blood cultures were negative and the patient was subsequently discharged home on a daily course of oral antibiotic therapy. The patient said he was doing well and had follow up with Dr. Siu in the office yesterday and everything was looking good. He was sent home in the evening; after the patient did have dinner, the patient was started having uncontrollable shaking chills. The patient did not feel if he has any fever or not. Subsequently, the patient presented to the ER where the patient was noticed to be hypotensive, did have fluid bolus as he was noted to have elevated lactic acid of 4.4.The patient did have CT of abdomen and pelvis with concern for possible masses or infection in his liver with evidence of pneumobilia. The patient was given Levaquin and Flagyl and admitted to the hospital. I was asked to see the patient for further recommendation regarding antibiotic therapy. REVIEW OF SYSTEMS: CONSTITUTIONAL: Positive for weakness and chills. EYES: No complaint. ENT: No complaint. RESPIRATORY: No complaint. CARDIOVASCULAR: No complaint. GENITOURINARY: No complaint. GASTROINTESTINAL: No complaint. MUSCULOSKELETAL: No complaint. INTEGUMENTARY: No complaint. PSYCHOLOGIC: No complaint. ENDOCRINE: No complaint. NEUROLOGIC: No complaint. PAST MEDICAL HISTORY: Significant for diabetes mellitus, gastroesophageal reflux disease, myocardial infarction, osteoarthritis, pneumonia, pancreatic cancer, pulmonary embolism, E. coli bacteremia. PAST SURGICAL HISTORY: Reji placement, EGD with biliary stenting, left subclavian Mediport, colonoscopy, gastric bypass. SOCIAL HISTORY: Former smoker. No drinking or any drug use. FAMILY HISTORY: Father with history of pancreatic cancer. Mother at 92 and no health issue. Allergy to PENICILLIN, however, tolerate cephalosporin without problem. Medications include patient is currently on Xanax, Lipitor, Cardura, Proscar, Dilaudid, Humalog Toradol, Mag-Ox, Glucophage, Flagyl, Narcan, Protonix, Xarelto, Zoloft, Flomax and Levaquin. On examination, blood pressure is 114/61 with a pulse of 51, temperature 98.3. He is 97% on room air. General description is an elderly male, lying in bed in no distress. No tachypnea or muscle of respiration use. HEENT examination shows no pallor or scleral icterus. Oral mucous membrane dry. NECK: Trachea central. There is no thyromegaly. LUNGS: Unlabored breathing. Clear to auscultation anteriorly. HEART: S1, S2. Regular rate and rhythm. ABDOMEN: Soft. No tenderness. EXTREMITIES: No edema of fee. SKIN EXAMINATION: No rash or masses palpable. NEUROLOGICAL: The patient is awake, alert, oriented x3. Mood and affect normal. LABS: Hemoglobin is 11.5 with white count 7.0. BUN of 10, creatinine 0.80. Electrolytes have been normal. Lactic acid elevated 4.4, repeat is i2.8. Urine has been negative. Chest x-ray reported to be negative. CT of the abdomen and pelvis report as much above. DIAGNOSTIC IMPRESS AND PLAN: Patient presented to the hospital with rigors and chills with evidence of lactic acidosis in a patient who does have complicated pancreatic cancer history with biliary sepsis and Escherichia coli bacteremia now with abnormalities seen on the liver with a question of possible liver abscess to be kept in mind especially with these symptoms of rigors and chills and lactic acidosis. PLAN: 1. Will await for the blood cultures to be finalized. 2. Will review the CT of abdomen and pelvis with radiologist, compare it to the old CT to see if of those abnormalities on the liver could be aspirated. 3. Discontinue Levaquin. Will start the patient on Rocephin 2 gram daily and continue Flagyl. 4. Will follow on the clinical condition and cultures to further adjust the medication if needed. Thank you for this consultation. Will follow this patient along with you. FRANCES
[2016-05-28 11:47] LABS: Glucose,Whole Blood 191 mg/dL (75-99)
[2016-05-28] MEDS: cefTRIAXone 2,000 MG in SODIUM CHLORIDE 0.9% 100 ML IVPB SCH (12:58)
[2016-05-28 17:10] LABS: Glucose,Whole Blood 129 mg/dL (75-99)
[2016-05-28] MEDS: RIVAROXABAN 10 MG TAB PO SCH (18:19)
[2016-05-28 20:50] LABS: Glucose,Whole Blood 237 mg/dL (75-99)
[2016-05-28] MEDS: ATORVASTATIN 10 MG TAB PO SCH (21:47)
--- NOTE | 2016-05-28 22:00 | PN ---
DATE OF SERVICE: 05/28/2016 I am covering for Dr. Olguin. This 75-year-old gentleman with a past medical history of pancreatic cancer presented with rigors and chills as well as possible sepsis. The patient had history of cholangitis previously. The patient was started on IV antibiotics. On admission, the lactic acid was found to be 4.4. Subsequently with hydration and antibiotics, it came down to 2.[address] Kendall is following the patient closely. The patient is on IV Flagyl and Rocephin at this time. PAST MEDICAL HISTORY: Reviewed. REVIEW OF SYSTEMS: CARDIOVASCULAR: As mentioned earlier. RESPIRATORY: As mentioned earlier. GI: As mentioned earlier. : No dysuria. NERVOUS: As mentioned earlier. No numbness or weakness. HEMATOLOGY/ONCOLOGY: As mentioned earlier. Current medications are reviewed, include: 1. Xanax 0.5 every 6 hours p.r.n. 2. Lipitor 10 mg q.h.s. 3. Rocephin 1 g IV daily. 4. Zocor. 5. Cardura 2 mg p.o. t.i.d. 6. Proscar 5 mg p.o. daily. 7. Dilaudid 1 mg q.3 p.r.n. 8. Humalog scale. 9. Toradol 30 mg every 6 hours p.r.n. 10. Magnesium oxide 400 mg q.d. 11. Glucophage 1000 mg b.i.d. 12. Flagyl. 13. Narcan 0.2 q.2 p.r.n. 14. Protonix 40 mg p.o. daily. 16. Zoloft 50 mg p.o. daily. 17. Flomax 0.4 daily. PHYSICAL EXAM: Patient is alert and oriented x3. Pulse 82, blood pressure 122/64, respirations 18, temperature 98.0, pulse ox 97% on room air. HEENT: Conjunctivae normal. NECK: No jugular venous distension. CARDIOVASCULAR: S1 and S2 muffled. RESPIRATORY: Breath sounds diminished at the bases. Bilateral scattered rhonchi and crackles. Abdomen is soft, nontender. No mass palpable. LEGS: No edema. No swelling. NERVOUS SYSTEM: Higher functions as mentioned earlier. Moves all 4 limbs. LYMPHATIC: No lymph nodes in neck or axillae. SKIN: No ulcer, rash or bleeding. LABS: WBC 6.5, hemoglobin 10.4. Glucose 191. Otherwise, albumin is 2.6. AST, ALT; noted. Cortisol is 27. ASSESSMENT: 1. Possible sepsis present on admission with rigors and chills and lactic acidosis, rule out cholangitis or urinary tract infection. 2. Increased random blood sugar. 3. Elevated alkaline phosphatase. 4. History of pancreatic cancer with gastric outlet obstruction, status post stent placement with evidence of liver mass suspicious for metastatic disease and pneumobilia. 5. Stable reticular nodular pattern in left lung base. 6. Colonic diverticulosis. 7. Gastroesophageal reflux disease. 8. Diabetes mellitus type 2. Hemoglobin A1c 6.8. 9. Hypertension. 10. Hyperlipidemia. 11. History of pulmonary embolism, status post inferior vena cava filter. 12. Benign prostatic hypertrophy. 13. History of migraines. 14. History of myocardial infarction. 15. History of recent Escherichia coli bacteremia. 16. History of back pain and degenerative joint disease. 17. History of small-bowel obstruction, status post bowel resection. 18. History of depression, stable. 19. Gait dysfunction. 20. History of nicotine dependence. 21. History of EtOH abuse. 22. FULL CODE. RECOMMENDATIONS AND DISCUSSION: In this 75 gentleman who presented with multiple complex medical issues, will monitor the patient closely. Continue with the current medication. continue with symptomatic treatment. Continue with empiric antibiotics. Follow the cultures. Repeat labs will be ordered. Closely follow with Dr. Kendall from the infectious disease department and further recommendations to follow. Discussed with the patient, who understands and agrees. THE PATIENT IS FULL CODE at this time. FRANCES
--- NOTE | 2016-05-28 22:09 | PN ---
DATE OF SERVICE: 05/28/2016 REASON FOR FOLLOWUP: Questionable bacteremia on liver abscess. INTERVAL HISTORY: The patient did not have any further rigors or chills the patient did have some abdominal discomfort, but no nausea, vomiting, denies having any diarrhea. Denies having any chest pain or shortness of breath or cough. On examination, blood pressure 125/64 with a pulse of 82, temperature 98.1. He is 97% on room air. General description is an elderly male, lying in bed in no distress. RESPIRATORY SYSTEM: Unlabored breathing. Clear to auscultation anteriorly. HEART: S1, S2. Regular rate and rhythm. ABDOMEN: Soft. No tenderness. EXTREMITIES: No edema of feet. LABS: BUN of 7, creatinine 0.78. Hemoglobin is 10.8, white count of 6.4Urine is negative. Blood culture so far negative. CT was reviewed with the radiologist, Dr. Jimenez, where some improvement is seen on the liver with a question of possible mass rather than abscess. DIAGNOSTIC IMPRESSION AND PLAN: Patient admitted to hospital with rigors and chills with concern for possible bacteremia of biliary source; however, so far blood cultures are negative. The patient is not running any fever. CT was reviewed with question of abnormality in the liver suspicious for mass rather than an abscess. Will obtain ultrasound of the liver to clarify those. In the meantime, continue the patient on Flagyl and Rocephin, to which his fever has responded. Continue supportive care.
[2016-05-29] MEDS: metroNIDAZOLE-NS PMX 500 MG in SALINE 1 100ML.BAG IVPB SCH ×4 (05:33→23:35)
[2016-05-29] MEDS: SODIUM CHLORIDE 0.9% 1,000 ML IV SCH ×4 (05:33→13:16)
[2016-05-29 07:29] LABS: Glucose,Whole Blood 133 mg/dL (75-99)
[2016-05-29 08:11] LABS: Anisocytosis Slight; Basophils % (A) 0 %; CH 25.9; CHCM 30.8; Eosinophils # (A) 0.2 k/uL (0-0.7); Eosinophils % (A) 3 %; HCT 34.1 % (39.0-53.0); HDW 2.63; HGB 10.4 gm/dL (13.0-17.5); Hypochromasia Moderate; Luc # (Auto) 0.08; Luc % (Auto) 1; Lymphocytes # (A) 2.2 k/uL (1.0-4.8); Lymphocytes % (A) 34 %; MCH 25.7 pg (25.0-35.0); MCHC 30.6 g/dL (31.0-37.0); MCV 84.1 fL (80.0-100.0); Mean Platelet Volume 8.1; Monocytes # (A) 0.3 k/uL (0-1.0); Monocytes % (A) 5 %; Neutrophils # (A) 3.5 k/uL (1.3-7.7); Neutrophils % (A) 57 %; RBC 4.05 m/uL (4.30-5.90); RDW 17.6 % (11.5-15.5); WBC 6.3 k/uL (3.8-10.6); WBC (Perox) 6.16
[2016-05-29 08:14] LABS: Anion Gap 13 mmol/L; Blood Urea Nitrogen 6 mg/dL (9-20); Calcium 8.1 mg/dL (8.4-10.2); Carbon Dioxide 19 mmol/L (22-30); Chloride 110 mmol/L (98-107); Glucose 137 mg/dL (74-99); Non-African American GFR(MDRD) >60 (>60 ml/min/1.73 sqM); Potassium 4.2 mmol/L (3.5-5.1); Sodium 142 mmol/L (137-145)
[2016-05-29] MEDS: INSULIN LISPRO (humaLOG) 300 UNIT/3 ML VIAL SQ SCH ×3 (08:18→17:17)
[2016-05-29] MEDS: MAGNESIUM OXIDE 400 MG TAB PO SCH (08:19)
[2016-05-29] MEDS: metFORMIN 500 MG TAB PO SCH ×2 (08:19→17:17)
[2016-05-29] MEDS: PANTOPRAZOLE 40 MG TABLET PO SCH (08:20)
[2016-05-29] MEDS: TAMSULOSIN 0.4 MG CAP.ER.24H PO SCH (08:20)
[2016-05-29] MEDS: DOXAZOSIN 2 MG TAB PO SCH ×2 (08:20→22:35)
[2016-05-29] MEDS: SERTRALINE 50 MG TAB PO SCH (08:20)
[2016-05-29] MEDS: FINASTERIDE 5 MG TAB PO SCH (08:20)
[2016-05-29 12:21] LABS: Glucose,Whole Blood 245 mg/dL (75-99)
[2016-05-29] MEDS: cefTRIAXone 2,000 MG in SODIUM CHLORIDE 0.9% 100 ML IVPB SCH (13:17)
[2016-05-29 16:56] LABS: Glucose,Whole Blood 179 mg/dL (75-99)
[2016-05-29] MEDS: RIVAROXABAN 10 MG TAB PO SCH (17:17)
[2016-05-29 20:45] LABS: Glucose,Whole Blood 223 mg/dL (75-99)
[2016-05-29] MEDS: ATORVASTATIN 10 MG TAB PO SCH (22:35)
[2016-05-30] MEDS: SODIUM CHLORIDE 0.9% 1,000 ML IV SCH ×4 (04:39→13:52)
[2016-05-30] MEDS: metroNIDAZOLE-NS PMX 500 MG in SALINE 1 100ML.BAG IVPB SCH ×2 (04:59→13:50)
[2016-05-30 08:15] LABS: Glucose,Whole Blood 164 mg/dL (75-99)
--- NOTE | 2016-05-30 08:15 | US ---
EXAMINATION TYPE: US liver DATE OF EXAM: 05/30/2016 7:56 AM COMPARISON: NONE CLINICAL HISTORY: abnormal CT , ? METS VS ABSCESS. Pancreatic CA, pancreatic stent, liver mass seen o n CT, cholecystectomy EXAM MEASUREMENTS: Liver Length: 17.3 cm Gallbladder Wall: Surgically absent CBD: 1.0 cm Right Kidney: 11.5 x 5.8 x 5.0 cm TECHNOLOGIST IMPRESSION: Pancreas: Obscured by overlying bowel gas Liver: heterogeneous, complex hypoechoic area = 1.6 x 1.5 x 2.0cm Gallbladder: Surgically absent CBD: appears wnl Right Kidney: No hydronephrosis or masses seen The hypoechoic area within the liver appears somewhat heterogenous in borders. This appears to be a n ew finding from 07/29/2014. This is inconclusive. Typically metastatic lesions are more hyperechoic parikh ggesting abscess could be within the differential. IMPRESSION: 1. Hypoechoic lesion within the liver is nonspecific. Abscess or complex cyst is favored although met astasis could be within the differential. This is a new finding from July 2014.
[2016-05-30 08:38] LABS: Anisocytosis Slight; Basophils % (A) 1 %; CH 25.9; CHCM 30.9; Eosinophils # (A) 0.2 k/uL (0-0.7); Eosinophils % (A) 5 %; HCT 33.7 % (39.0-53.0); HDW 2.64; HGB 10.6 gm/dL (13.0-17.5); Hypochromasia Slight; Luc # (Auto) 0.08; Luc % (Auto) 2; Lymphocytes # (A) 1.5 k/uL (1.0-4.8); Lymphocytes % (A) 31 %; MCH 26.4 pg (25.0-35.0); MCHC 31.4 g/dL (31.0-37.0); Mean Platelet Volume 7.5; Monocytes # (A) 0.2 k/uL (0-1.0); Monocytes % (A) 4 %; Neutrophils # (A) 2.8 k/uL (1.3-7.7); Neutrophils % (A) 58 %; RBC 4.01 m/uL (4.30-5.90); RDW 17.7 % (11.5-15.5); WBC 4.8 k/uL (3.8-10.6); WBC (Perox) 4.99
[2016-05-30 08:42] VITALS: BP 119/56; PULSE 60; RESP 16; TEMP 97.4
[2016-05-30 08:52] LABS: Anion Gap 9 mmol/L; Blood Urea Nitrogen 5 mg/dL (9-20); Carbon Dioxide 21 mmol/L (22-30); Chloride 111 mmol/L (98-107); Glucose 174 mg/dL (74-99); Non-African American GFR(MDRD) >60 (>60 ml/min/1.73 sqM); Potassium 3.8 mmol/L (3.5-5.1); Sodium 141 mmol/L (137-145)
--- NOTE | 2016-05-30 09:08 | PN ---
DATE OF SERVICE: 05/29/2016 I am covering for Dr. Olguin. This 75-year-old gentleman who was admitted with fever, rigors, chills and features of sepsis is possibly biliary origin sepsis. Cultures are negative so far. Dr. Kendall is following the patient. The patient is on IV empiric antibiotics. No chest pain. No palpitations. No fever. On exam, alert and oriented times three. Pulse is 106, blood pressure 120/62, respiratory rate 18, temperature 98.4. Pulse ox 97% on room air. HEENT: Conjunctivae normal. Oral mucosa moist. NECK: No jugular venous distention. No carotid bruit. No lymph node enlargement. CARDIOVASCULAR: S1, S2 muffled. RESPIRATORY: Breath sounds diminished at the bases. A few scattered rhonchi. No crackles. ABDOMEN: Soft, nontender. No mass palpable. LEGS: No edema. No swelling. CENTRAL NERVOUS SYSTEM: No focal deficits. LABS: WBC 6.3, hemoglobin is 10.4. Accu-Cheks are noted. CO2 is 19. Calcium is 8.1. ASSESSMENT: 1. Possible sepsis present on admission with rigors and chills and lactic acidosis possible cholangitis. 2. Increased random blood sugar. 3. Elevated alkaline phosphatase. 4. History of pancreatic cancer with gastric outlet obstruction, status post stent placement with evidence of liver mass suspicious for metastatic and pneumobilia. 5. Stable reticular nodular pattern in the left lung base. 6. Colonic diverticulosis. 7. Gastroesophageal reflux disease. 8. Diabetes mellitus type 2. Hemoglobin A1c 6.8. 9. Hypertension. 10. Hyperlipidemia. 11. History of pulmonary embolism, status post IVC filter. 12. Benign prostatic hypertrophy. 13. History of migraine. 14. History of myocardial infarction. 15. History of recent Escherichia coli bacteremia. 16. History of back pain and degenerative joint disease. 17. History of small bowel obstruction, status post bowel resection. 18. History of depression, stable. 19. Gait dysfunction. 20. History of nicotine dependence. 21. History of ETOH abuse remotely. 22. FULL CODE. RECOMMENDATIONS AND DISCUSSION: Recommend to continue the current medications, continue symptomatic treatment. Continue with antibiotics. Otherwise smoking monitor closely. The patient is currently on Flagyl and as well as Rocephin. Closely monitor with infectious disease and continue the rest of the medications. Follow the cultures. Dr. Olguin will follow.
[2016-05-30] MEDS: metFORMIN 500 MG TAB PO SCH (09:35)
[2016-05-30] MEDS: TAMSULOSIN 0.4 MG CAP.ER.24H PO SCH (09:36)
[2016-05-30] MEDS: DOXAZOSIN 2 MG TAB PO SCH (09:36)
[2016-05-30] MEDS: MAGNESIUM OXIDE 400 MG TAB PO SCH (09:36)
[2016-05-30] MEDS: SERTRALINE 50 MG TAB PO SCH (09:36)
[2016-05-30] MEDS: FINASTERIDE 5 MG TAB PO SCH (09:36)
[2016-05-30] MEDS: PANTOPRAZOLE 40 MG TABLET PO SCH (09:36)
[2016-05-30] MEDS: INSULIN LISPRO (humaLOG) 300 UNIT/3 ML VIAL SQ SCH ×2 (09:38→12:45)
--- NOTE | 2016-05-30 12:00 | PN ---
DATE OF SERVICE: 05/29/2016 Reason for follow-up: Fever and question of sepsis. INTERVAL HISTORY: The patient is afebrile. No further rigors or chills have been noticed. Denies having any chest pain or shortness of breath. No cough or abdominal pain or any diarrhea. No nausea, vomiting. An ultrasound earlier was requested. Unfortunately not done. On examination, blood pressure is 110/62 with a pulse of 106, temperature 98.2. He is 96% on room air. General description is an elderly male, lying in bed in no distress. RESPIRATORY SYSTEM: Unlabored breathing. Clear to auscultation anteriorly. HEART: S1, S2 regular rate and rhythm. ABDOMEN: Soft, no tenderness. LABS: Hemoglobin is 10.4, white count 6.3 with a BUN 6, creatinine 0.79. Blood culture has been negative. DIAGNOSTIC IMPRESSION AND PLAN: Patient admitted to the hospital with rigors and chills. The patient at this time will be continued on Rocephin. Will reorder the ultrasound for tomorrow. Depending on those results, will determine further work-up. Continue supportive care. FRANCES
[2016-05-30 12:25] LABS: Glucose,Whole Blood 194 mg/dL (75-99)
[2016-05-30] MEDS: cefTRIAXone 2,000 MG in SODIUM CHLORIDE 0.9% 100 ML IVPB SCH (12:42)
--- NOTE | 2016-05-30 13:22 | P.DS ---
Providers Date of admission: 05/27/16 02:51 Expected date of discharge: 05/30/16 Attending physician: Chito Olguin Consults: 05/27/16 10:55 Consult Physician Urgent Consulting Provider: Purnima Kendall Consult Reason/Comments: FEVER Do you want consulting provider notified?: Yes 05/27/16 10:57 Consult Physician Urgent Consulting Provider: Frank Huynh Consult Reason/Comments: FEVER, HISTORY OF PANCREATIC CANCER Do you want consulting provider notified?: Yes Primary care physician: Chito Olguin Hospital Course: Patient is a 75-year-old white male with complex medical history significant for pancreatic cancer, severe sepsis, gastric outlet obstruction with stent placement, and recent hospitalization for E. coli bacteremia thought to be abdominal in origin. Patient presented to the emergency department with complains of chills and rigors and evidence of elevated lactic acid with concern for possible bacteremia of biliary source. Blood cultures negative. No evidence fevers. CT of abdomen and pelvis with question of abnormality in the liver suspicious for mass rather than abscess. Liver ultrasound inconclusive for mass versus abscess but upon further review by Dr. Kendall and radiologist, patient more likely to have a liver mass rather than abscess. Patient was felt stable for discharge. Patient will follow-up with Dr. Olguin and oncology service in the outpatient setting. Patient will be discharged home on oral antibiotics for empiric coverage. Discharge diagnoses: 1. Possible sepsis present on admission with rigors and chills and lactic acidosis possibly cholangitis. 2. Increased random blood sugar. 3. Elevated alkaline phosphatase. 4. History of pancreatic cancer gastric outlet obstruction, status post placement with evidence of liver mass suspicious for metastatic and pneumobilia. 5. Stable reticulonodular pattern in the left lung base. 6. Colonic diverticulosis. 7. GERD. 8. Diabetes mellitus type 2. 9. Hypertension. 10. Hyperlipidemia. 11. History of pulmonary embolism, status post IVC filter. 12. Benign prostatic hypertrophy. 13. History of migraine. 14. History of myocardial infarction. 15. History of recent E. coli bacteremia. 16. History of back pain and degenerative joint disease. 17. History of small bowel obstruction, status post bowel resection. 18. History of depression, stable. 19. Gait dysfunction. 20. History of nicotine dependence. 21. History of EtOH abuse remotely. The above impression and plan have been discussed and directed by DrRick COPPOLA acting as scribe for Dr. Olguin. Pertinent Studies: Chest x-ray; KUB; abdomen/pelvis CT; liver ultrasound Patient Condition at Discharge: Good Plan - Discharge Summary New Discharge Prescriptions: Ciprofloxacin HCl [Cipro] 500 mg PO Q12HR #20 tablet metroNIDAZOLE [Flagyl] 500 mg PO Q8HR #30 tab Discharge Medication List Doxazosin [Cardura] 2 mg PO BID 04/11/16 [History] Finasteride [Proscar] 5 mg PO DAILY 04/11/16 [History] Insulin Glargine,Hum.rec.anlog [Lantus Solostar] 64 unit SQ HS 04/11/16 [History ] Omeprazole [PriLOSEC] 40 mg PO DAILY 04/11/16 [History] Rivaroxaban [Xarelto] 20 mg PO DAILY 04/11/16 [History] Sertraline [Zoloft] 50 mg PO DAILY 04/11/16 [History] Simvastatin [Zocor] 20 mg PO HS 04/11/16 [History] Tamsulosin HCl [Flomax] 0.4 mg PO DAILY 04/11/16 [History] metFORMIN HCL 1,000 mg PO BID 04/11/16 [History] Capecitabine [Xeloda] 1,000 mg PO DIRECTED 05/26/16 [History] Magnesium Oxide [Mag-Ox] 400 mg PO DAILY 05/26/16 [History] Ciprofloxacin HCl [Cipro] 500 mg PO Q12HR #20 tablet 05/30/16 [Rx] metroNIDAZOLE [Flagyl] 500 mg PO Q8HR #30 tab 05/30/16 [Rx] Follow up Appointment(s)/Referral(s): Chito Olguin DO [Primary Care Provider] - 1-2 days Coy Siu MD [STAFF PHYSICIAN] - 06/16/16 2:30 pm Activity/Diet/Wound Care/Special Instructions: Residential home care #[phone] DO NOT RESUME XELODA UNTIL ORAL ANTIBIOTICS COMPLETED, CALL DR. SIU'S OFFICE IF ANY QUESTIONS Discharge Disposition: HOME WITH HOME HEALTH SERVICES
--- NOTE | 2016-05-30 17:10 | PN ---
DATE OF SERVICE: 05/30/2016 Reason for follow-up: Fever with question of liver abscess. INTERVAL HISTORY: The patient is afebrile. Has been feeling better. No further rigors or chills has been noticed. Denies having any chest pain or shortness of breath or cough. No abdominal pain or any diarrhea. On examination, blood pressure is 119/56 with a pulse of 60, temperature 97.4. He is 97% on room air. General description is an elderly male lying in bed in no distress. RESPIRATORY SYSTEM: Unlabored breathing. Clear to auscultation anteriorly. HEART: S1, S2. Regular rate and rhythm. ABDOMEN: Soft, no tenderness. LABS: Hemoglobin is 10.6, creatinine 4.8 with a BUN of 5, creatinine 0.75. Blood culture has been negative. Ultrasound and CT results reviewed with the radiologist which looks more of a mass rather than an abscess. DIAGNOSTIC IMPRESSION AND PLAN: Patient admitted to hospital with rigors and chills in a patient with history of pancreatic cancer and biliary sepsis and recent Escherichia coli bacteremia. However, this admission the patient remains to be afebrile. His white count is normal. The blood cultures remain to be negative. He did have a CT followed by an ultrasound, these images were reviewed with radiology and looks like multiple metastases rather than abscess and recommended against CT-guided drainage of the same. We will leave to the oncology further work-up for the same and as no infection has been identified, there is no need for any antibiotics on discharge with close outpatient follow-up. Plan of care was discussed in detail with the nurse practitioner for the primary team. FRANCES
== END 2016-05-30 16:25 | disposition home health service (06) | DRG 872 ==
LOC: EC 23:06 → 5ONC 05-27 02:51 → 5MS5E 05-27 12:44
PROVIDERS: ADMIT Family Medicine; ATTEND Family Medicine
DX: A41.9 Sepsis, unspecified organism (principal); K83.0 Cholangitis; C78.7 Secondary malignant neoplasm of liver and intrahepatic bile duct; C25.9 Malignant neoplasm of pancreas, unspecified; I11.0 Hypertensive heart disease with heart failure; I50.9 Heart failure, unspecified; E11.65 Type 2 diabetes mellitus with hyperglycemia; D63.0 Anemia in neoplastic disease; I10 Essential (primary) hypertension; F32.9 Major depressive disorder, single episode, unspecified; E78.5 Hyperlipidemia, unspecified; G89.29 Other chronic pain; I25.2 Old myocardial infarction; K21.9 Gastro-esophageal reflux disease without esophagitis; K57.30 Diverticulosis of large intestine without perforation or abscess without bleeding; N40.0 Benign prostatic hyperplasia without lower urinary tract symptoms; G43.909 Migraine, unspecified, not intractable, without status migrainosus; R26.9 Unspecified abnormalities of gait and mobility; M47.9 Spondylosis, unspecified; Z79.01 Long term (current) use of anticoagulants; Z79.4 Long term (current) use of insulin; Z79.899 Other long term (current) drug therapy; Z87.891 Personal history of nicotine dependence; Z96.641 Presence of right artificial hip joint; Z98.84 Bariatric surgery status; Z88.0 Allergy status to penicillin
CPT/HCPCS: 36415; 71020; 74000; 74177; 76705; 80048; 80053; 80299; 81003; 82533; 82550; 82553; 83036; 83605; 84484; 85025; 85610; 85730; 87040; 87086; 87324; 93005; 96361; 96365; 96367; 99285

== ENCOUNTER 2016-07-14 16:22 | Inpatient (IN) | payer MEDICARE, BC ==
[2016-07-14] MEDS ORDERED: SODIUM CHLORIDE 0.9% 1,000 ML IV STA ×2 (16:27→17:13)
[2016-07-14 16:55] LABS: Glucose,Whole Blood 46 mg/dL (75-99)
[2016-07-14 17:03] LABS: Anisocytosis Slight; Basophils % (A) 0 %; CH 27.5; CHCM 32.2; Eosinophils # (A) 0.1 k/uL (0-0.7); Eosinophils % (A) 1 %; HCT 36.3 % (39.0-53.0); HDW 2.62; HGB 11.5 gm/dL (13.0-17.5); Luc # (Auto) 0.08; Luc % (Auto) 1; Lymphocytes % (A) 14 %; MCH 27.2 pg (25.0-35.0); MCHC 31.8 g/dL (31.0-37.0); MCV 85.7 fL (80.0-100.0); Monocytes # (A) 0.4 k/uL (0-1.0); Monocytes % (A) 5 %; Neutrophils # (A) 6.1 k/uL (1.3-7.7); Neutrophils % (A) 79 %; RBC 4.23 m/uL (4.30-5.90); RDW 19.2 % (11.5-15.5); WBC 7.7 k/uL (3.8-10.6); WBC (Perox) 8.19
[2016-07-14 17:05] LABS: ALT 22 U/L (21-72); AST 52 U/L (17-59); Alkaline Phosphatase 269 U/L (38-126); Anion Gap 13 mmol/L; Blood Urea Nitrogen 10 mg/dL (9-20); Calcium 8.5 mg/dL (8.4-10.2); Carbon Dioxide 19 mmol/L (22-30); Chloride 103 mmol/L (98-107); Magnesium 1.1 mg/dL (1.6-2.3); Non-African American GFR(MDRD) >60 (>60 ml/min/1.73 sqM); Phosphorous 2.1 mg/dL (2.5-4.5); Potassium 4.1 mmol/L (3.5-5.1); Sodium 135 mmol/L (137-145); Total Bilirubin 1.2 mg/dL (0.2-1.3); Total Protein 6.9 g/dL (6.3-8.2)
[2016-07-14 17:07] LABS: Glucose 46 mg/dL (74-99)
[2016-07-14] MEDS ORDERED: SODIUM CHLORIDE 0.9% 500 ML IV STA (17:13)
[2016-07-14 17:14] LABS: Glucose,Whole Blood 44 mg/dL (75-99)
[2016-07-14] MEDS ORDERED: KETOROLAC 30 MG/ML 1 ML VIAL IVP STA (17:14)
[2016-07-14] MEDS ORDERED: ACETAMINOPHEN IV (For NPO) 1,000 MG in EMPTY BAG 1 BAG IVPB STA (17:14)
[2016-07-14] MEDS: DEXTROSE 50%-WATER 50 ML SYRINGE IVP STA ×2 (17:14→21:05)
[2016-07-14 17:19] LABS: Creatine Kinase 78 U/L (55-170)
[2016-07-14 17:24] LABS: INR 1.8 (<1.1); Partial Thromboplastin Time 33.2 sec (22.0-30.0); Prothrombin Time 17.4 sec (9.0-12.0)
[2016-07-14 17:32] LABS: Troponin I <0.012 ng/mL (0.000-0.034)
[2016-07-14] MEDS ORDERED: DEXTROSE 5%-0.45% NACL 1,000 ML IV ONE (17:33)
[2016-07-14 17:39] LABS: Creatine Kinase MB 2.5 ng/mL (0.0-2.4)
--- NOTE | 2016-07-14 17:47 | ED ---
General Adult HPI - General Chief complaint: Weakness Stated complaint: Weakness Time Seen by Provider: 07/14/16 16:24 Source: patient, RN notes reviewed, old records reviewed Mode of arrival: EMS Limitations: no limitations - History of Present Illness Initial comments: This is a 75-year-old male the ER for evaluation of general weakness. Patient is significant medical history of pancreatic cancer with metastases, patient recently diagnosed with blood infection, bacteremia, patient also appears to have elevated fever, patient not feeling well, patient's mental status is altered, blood sugar is low and has positive fever. History is is also obtained from EMS and patient's family - Related Data Home Medications Medication Instructions Recorded Confirmed Doxazosin [Cardura] 2 mg PO BID 04/11/16 07/14/16 Finasteride [Proscar] 5 mg PO DAILY 04/11/16 07/14/16 Insulin Glargine,Hum.rec.anlog 64 unit SQ HS 04/11/16 07/14/16 [Lantus Solostar] Omeprazole [PriLOSEC] 40 mg PO DAILY 04/11/16 07/14/16 Rivaroxaban [Xarelto] 20 mg PO DAILY 04/11/16 07/14/16 Sertraline [Zoloft] 50 mg PO DAILY 04/11/16 07/14/16 Simvastatin [Zocor] 20 mg PO HS 04/11/16 07/14/16 Tamsulosin HCl [Flomax] 0.4 mg PO DAILY 04/11/16 07/14/16 metFORMIN HCL 1,000 mg PO BID 04/11/16 07/14/16 Capecitabine [Xeloda] 1,000 mg PO DIRECTED 05/26/16 07/14/16 Magnesium Oxide [Mag-Ox] 400 mg PO DAILY 05/26/16 07/14/16 Furosemide [Lasix] 40 mg PO DAILY 07/14/16 07/14/16 Sulfamethox-Tmp 800-160Mg [Bactrim 1 tab PO Q12HR 07/14/16 07/14/16 DS 800-160 mg] Allergies Allergy/AdvReac Type Severity Reaction Status Date / Time Penicillins Allergy Itching Verified 07/14/16 17:18 Review of Systems ROS Statement: Those systems with pertinent positive or pertinent negative responses have been documented in the HPI. ROS Other: All systems not noted in ROS Statement are negative. Past Medical History Past Medical History: Cancer, Heart Failure, Diabetes Mellitus, GERD/Reflux, Myocardial Infarction (DC), Osteoarthritis (OA), Pneumonia, Prostate Disorder, Pulmonary Embolus (PE) Additional Past Medical History / Comment(s): Pt admitted 04/11/16 with gram negative bacteremia, left lower pneumonia. Other medical hx: sepsis, pancreatic CA with past IV chemo and now oral chemo, gastric outlet obstruction , PE november 2013, [place] 2001, bilateral tinnitis, severe GERD, BPH, arthritis lower back with chronic back pain, . Last Myocardial Infarction Date:: 2001 History of Any Multi-Drug Resistant Organisms: None Reported Past Surgical History: Back Surgery, Bowel Resection, Joint Replacement Additional Past Surgical History / Comment(s): ivet filter placed november 2013;, EGD wt biliary stenting, 07/2014 ERCP which showed previous biliary stent migration-pt had stent replaced and dilatation, colonoscopy, L subclavian mediport, R total hip replacement. "GOO" stent placedment from stomach to intestines, 04/2016 gastric bypass was done at [facility]. Past Anesthesia/Blood Transfusion Reactions: No Reported Reaction Additional Past Anesthesia/Blood Transfusion Reaction / Comment(s): Pt has never recieved blood. Past Psychological History: Depression Additional Psychological History / Comment(s): Pt states after previous admission and discharge he went to rehab for 6 weeks for strengthening. He is now back home where he lives alone. He is independent. He performs his own ADLs. He uses a walker or cane to ambulate. He drives a car. Patient uses Homecare nurse and home physical therapy-[facility]. Smoking Status: Former smoker Past Alcohol Use History: None Reported Additional Past Alcohol Use History / Comment(s): Pt states he started smoking at age 11 (1954) and quit smoking in 1983. He states he was a 2ppd smoker. Pt states he was a past heavy drinker but has not drank in 2-3 yrs. Past Drug Use History: None Reported - Past Family History Father Family Medical History: Cancer Additional Family Medical History / Comment(s): Father at age 53 yrs of pancreatic cancer. Mother Family Medical History: No Reported History Additional Family Medical History / Comment(s): Mother lived to be 92 yrs old with no health problems known. General Exam Limitations: altered mental status General appearance: alert, anxious, lethargic, obese Head exam: Present: atraumatic, normocephalic, normal inspection Eye exam: Present: normal appearance, PERRL, EOMI. Absent: scleral icterus, conjunctival injection, periorbital swelling ENT exam: Present: mucous membranes dry Neck exam: Present: normal inspection. Absent: tenderness, meningismus, lymphadenopathy Respiratory exam: Present: normal lung sounds bilaterally. Absent: respiratory distress, wheezes, rales, rhonchi, stridor Cardiovascular Exam: Present: regular rate, normal rhythm, normal heart sounds. Absent: systolic murmur, diastolic murmur, rubs, gallop, clicks GI/Abdominal exam: Present: soft, normal bowel sounds. Absent: distended, tenderness, guarding, rebound, rigid Extremities exam: Present: normal inspection, full ROM, normal capillary refill. Absent: tenderness, pedal edema, joint swelling, calf tenderness Back exam: Present: normal inspection Neurological exam: Present: alert, oriented X3, CN II-XII intact Psychiatric exam: Present: normal affect, normal mood Skin exam: Present: warm, dry, intact, normal color. Absent: rash Course Vital Signs 07/14/16 16:24 Temperature 101.0 F H Pulse Rate 89 Respiratory 18 Rate Blood Pressure 115/57 O2 Sat by Pulse 99 Oximetry - Reevaluation(s) Reevaluation #1: 07/14/16 17:43 Patient continued to have recurrent hypoglycemia despite eating and glucose therapy Reevaluation #2: 07/14/16 17:44 Patient severely dehydrated on exam and still remains dehydrated and altered mental status EKG Findings - EKG Comments: EKG Findings:: EKG shows sinus rhythm rate 97, MT 136, QRS 114, QTC 551 Medical Decision Making - Medical Decision Making 75 male to the ED co AMS and weakness, fever, bacteremia, dehydration, malnutrition, electrolyte abnormalities, will start on dextrose, IVF<, IV antibiotics, - Lab Data Result diagrams: 07/14/16 16:36 07/14/16 16:36 Lab Results 07/14/16 07/14/16 07/14/16 Range/Units 16:36 16:36 16:36 WBC 7.7 (3.8-10.6) k/uL RBC 4.23 L (4.30-5.90) m/uL Hgb 11.5 L (13.0-17.5) gm/dL Hct 36.3 L (39.0-53.0) % MCV 85.7 (80.0-100.0) fL MCH 27.2 (25.0-35.0) pg MCHC 31.8 (31.0-37.0) g/dL RDW 19.2 H (11.5-15.5) % Plt Count 163 (150-450) k/uL Neutrophils % 79 % Lymphocytes % 14 % Monocytes % 5 % Eosinophils % 1 % Basophils % 0 % Neutrophils # 6.1 (1.3-7.7) k/uL Lymphocytes # 1.0 (1.0-4.8) k/uL Monocytes # 0.4 (0-1.0) k/uL Eosinophils # 0.1 (0-0.7) k/uL Basophils # 0.0 (0-0.2) k/uL Anisocytosis Slight PT (9.0-12.0) sec INR (<1.1) APTT (22.0-30.0) sec Sodium 135 L (137-145) mmol/L Potassium 4.1 (3.5-5.1) mmol/L Chloride 103 (98-107) mmol/L Carbon Dioxide 19 L (22-30) mmol/L Anion Gap 13 mmol/L BUN 10 (9-20) mg/dL Creatinine 0.74 (0.66-1.25) mg/dL Est GFR (MDRD) Af Amer >60 (>60 ml/min/1.73 sqM) Est GFR (MDRD) Non-Af >60 (>60 ml/min/1.73 sqM) Glucose 46 L* (74-99) mg/dL POC Glucose (mg/dL) (75-99) mg/dL POC Glu Plunger Shovel Operator ID Plasma Lactic Acid Terry (0.7-2.0) mmol/L Calcium 8.5 (8.4-10.2) mg/dL Phosphorus 2.1 L (2.5-4.5) mg/dL Magnesium 1.1 L (1.6-2.3) mg/dL Total Bilirubin 1.2 (0.2-1.3) mg/dL AST 52 (17-59) U/L ALT 22 (21-72) U/L Alkaline Phosphatase 269 H (38-126) U/L Total Creatine Kinase 78 (55-170) U/L Total Protein 6.9 (6.3-8.2) g/dL Albumin 3.1 L (3.5-5.0) g/dL 07/14/16 07/14/16 07/14/16 Range/Units 16:36 16:36 16:53 WBC (3.8-10.6) k/uL RBC (4.30-5.90) m/uL Hgb (13.0-17.5) gm/dL Hct (39.0-53.0) % MCV (80.0-100.0) fL MCH (25.0-35.0) pg MCHC (31.0-37.0) g/dL RDW (11.5-15.5) % Plt Count (150-450) k/uL Neutrophils % % Lymphocytes % % Monocytes % % Eosinophils % % Basophils % % Neutrophils # (1.3-7.7) k/uL Lymphocytes # (1.0-4.8) k/uL Monocytes # (0-1.0) k/uL Eosinophils # (0-0.7) k/uL Basophils # (0-0.2) k/uL Anisocytosis PT 17.4 H (9.0-12.0) sec INR 1.8 (<1.1) APTT 33.2 H (22.0-30.0) sec Sodium (137-145) mmol/L Potassium (3.5-5.1) mmol/L Chloride (98-107) mmol/L Carbon Dioxide (22-30) mmol/L Anion Gap mmol/L BUN (9-20) mg/dL Creatinine (0.66-1.25) mg/dL Est GFR (MDRD) Af Amer (>60 ml/min/1.73 sqM) Est GFR (MDRD) Non-Af (>60 ml/min/1.73 sqM) Glucose (74-99) mg/dL POC Glucose (mg/dL) 46 L (75-99) mg/dL POC Glu Plunger Shovel Operator ID Charlee, Ana Plasma Lactic Acid Terry 4.4 H* (0.7-2.0) mmol/L Calcium (8.4-10.2) mg/dL Phosphorus (2.5-4.5) mg/dL Magnesium (1.6-2.3) mg/dL Total Bilirubin (0.2-1.3) mg/dL AST (17-59) U/L ALT (21-72) U/L Alkaline Phosphatase (38-126) U/L Total Creatine Kinase (55-170) U/L Total Protein (6.3-8.2) g/dL Albumin (3.5-5.0) g/dL 07/14/16 Range/Units 17:04 WBC (3.8-10.6) k/uL RBC (4.30-5.90) m/uL Hgb (13.0-17.5) gm/dL Hct (39.0-53.0) % MCV (80.0-100.0) fL MCH (25.0-35.0) pg MCHC (31.0-37.0) g/dL RDW (11.5-15.5) % Plt Count (150-450) k/uL Neutrophils % % Lymphocytes % % Monocytes % % Eosinophils % % Basophils % % Neutrophils # (1.3-7.7) k/uL Lymphocytes # (1.0-4.8) k/uL Monocytes # (0-1.0) k/uL Eosinophils # (0-0.7) k/uL Basophils # (0-0.2) k/uL Anisocytosis PT (9.0-12.0) sec INR (<1.1) APTT (22.0-30.0) sec Sodium (137-145) mmol/L Potassium (3.5-5.1) mmol/L Chloride (98-107) mmol/L Carbon Dioxide (22-30) mmol/L Anion Gap mmol/L BUN (9-20) mg/dL Creatinine (0.66-1.25) mg/dL Est GFR (MDRD) Af Amer (>60 ml/min/1.73 sqM) Est GFR (MDRD) Non-Af (>60 ml/min/1.73 sqM) Glucose (74-99) mg/dL POC Glucose (mg/dL) 44 L (75-99) mg/dL POC Glu Plunger Shovel Operator ID Charlee, Ana Plasma Lactic Acid Terry (0.7-2.0) mmol/L Calcium (8.4-10.2) mg/dL Phosphorus (2.5-4.5) mg/dL Magnesium (1.6-2.3) mg/dL Total Bilirubin (0.2-1.3) mg/dL AST (17-59) U/L ALT (21-72) U/L Alkaline Phosphatase (38-126) U/L Total Creatine Kinase (55-170) U/L Total Protein (6.3-8.2) g/dL Albumin (3.5-5.0) g/dL - Radiology Data Radiology results: report reviewed (Chest x-ray two-view), image reviewed Critical Care Time Critical Care Time: Yes Total Critical Care Time: 31 Disposition Clinical Impression: Sepsis, Lactic acidosis, Hypoglycemia, Intractable vomiting with nausea, SIRS ( systemic inflammatory response syndrome), Pancreatitis, Pancreatic cancer metastasized to liver Disposition: ADMITTED IP TO THIS [facility] Condition: Good Referrals: Chito Olguin DO [Primary Care Provider] - 1-2 days
--- NOTE | 2016-07-14 17:53 | XR ---
EXAMINATION TYPE: XR chest 2V DATE OF EXAM: 07/14/2016 5:48 PM COMPARISON: 05/27/2016 HISTORY: Weakness TECHNIQUE: Frontal and lateral views of the chest are obtained. FINDINGS: Heart and mediastinum are normal. Lungs are clear. Diaphragm is normal. There is a left-si ded central venous catheter with tip in the superior vena cava. Bony thorax is intact. There are ches t leads. IMPRESSION: No active cardiopulmonary disease. No change.
[2016-07-14 17:58] LABS: Glucose,Whole Blood 109 mg/dL (75-99)
[2016-07-14 19:12] LABS: Glucose,Whole Blood 74 mg/dL (75-99)
[2016-07-14 19:23] LABS: Appearance,Urine Clear (Clear); Bilirubin,Urine Negative (Negative); Glucose,Urine (UA) Negative (Negative); Ketones,Urine Negative (Negative); Leukocyte Esterase,Urine Negative (Negative); Nitrite,Urine Negative (Negative); PH, Urine 5.5 (5.0-8.0); Protein,Urine Negative (Negative); Specific Gravity,Urine 1.008 (1.001-1.035); UA Billing (MACRO vs. MICRO) CHEM; Urobilinogen,Urine <2.0 mg/dL (<2.0)
[2016-07-14 20:02] LABS: Glucose,Whole Blood 55 mg/dL (75-99)
[2016-07-14 20:02] LABS: Glucose,Whole Blood 49 mg/dL (75-99)
[2016-07-14] MEDS: MAGNESIUM SULFATE-D5W PMX 1 GM in DEXTROSE/WATER 1 100ML.BAG IVPB SCH ×4 (20:21→23:25)
[2016-07-14 20:32] LABS: Glucose,Whole Blood 50 mg/dL (75-99)
[2016-07-14 21:11] LABS: Glucose,Whole Blood 177 mg/dL (75-99)
[2016-07-14 21:28] VITALS: BMI 27.6
[2016-07-14 22:23] LABS: Glucose,Whole Blood 102 mg/dL (75-99)
[2016-07-15 02:15] LABS: Glucose,Whole Blood 46 mg/dL (75-99)
[2016-07-15 02:34] LABS: Glucose,Whole Blood 66 mg/dL (75-99)
[2016-07-15 03:01] LABS: Glucose,Whole Blood 117 mg/dL (75-99)
[2016-07-15 04:23] LABS: Glucose,Whole Blood 80 mg/dL (75-99)
[2016-07-15 04:44] LABS: Anisocytosis Slight; Basophils % (A) 0 %; CHCM 30.5; Eosinophils % (A) 1 %; HCT 34.5 % (39.0-53.0); HDW 2.46; HGB 10.7 gm/dL (13.0-17.5); Hypochromasia Moderate; Luc # (Auto) 0.09; Luc % (Auto) 2; Lymphocytes # (A) 0.7 k/uL (1.0-4.8); Lymphocytes % (A) 15 %; MCH 27.5 pg (25.0-35.0); MCHC 30.9 g/dL (31.0-37.0); Mean Platelet Volume 7.5; Monocytes # (A) 0.3 k/uL (0-1.0); Monocytes % (A) 6 %; Neutrophils # (A) 3.7 k/uL (1.3-7.7); Neutrophils % (A) 77 %; RBC 3.88 m/uL (4.30-5.90); WBC 4.7 k/uL (3.8-10.6)
[2016-07-15 04:56] LABS: Anion Gap 6 mmol/L; Blood Urea Nitrogen 9 mg/dL (9-20); Calcium 8.2 mg/dL (8.4-10.2); Carbon Dioxide 23 mmol/L (22-30); Chloride 105 mmol/L (98-107); Glucose 83 mg/dL (74-99); Magnesium 2.3 mg/dL (1.6-2.3); Non-African American GFR(MDRD) >60 (>60 ml/min/1.73 sqM); Phosphorous 3.4 mg/dL (2.5-4.5); Potassium 3.8 mmol/L (3.5-5.1); Sodium 134 mmol/L (137-145)
[2016-07-15] MEDS ORDERED: Potassium Replacement Protocol 1 EACH MISC MISCELLANE PRN (05:31)
[2016-07-15] MEDS ORDERED: POTASSIUM CHLORIDE ER 20 MEQ TAB.ER PO SCH (06:00)
[2016-07-15 06:02] LABS: Glucose,Whole Blood 102 mg/dL (75-99)
[2016-07-15 07:57] LABS: Glucose,Whole Blood 60 mg/dL (75-99)
[2016-07-15 08:18] LABS: Glucose,Whole Blood 62 mg/dL (75-99)
[2016-07-15 08:36] LABS: Glucose,Whole Blood 98 mg/dL (75-99)
[2016-07-15] MEDS: TAMSULOSIN 0.4 MG CAP.ER.24H PO SCH (08:43)
[2016-07-15] MEDS: SERTRALINE 50 MG TAB PO SCH (08:43)
[2016-07-15] MEDS: FUROSEMIDE 40 MG TAB PO SCH (08:43)
[2016-07-15] MEDS: INSULIN LISPRO (humaLOG) 300 UNIT/3 ML VIAL SQ SCH ×3 (08:43→20:58)
[2016-07-15] MEDS: PANTOPRAZOLE 40 MG TABLET PO SCH (08:43)
[2016-07-15] MEDS: MAGNESIUM OXIDE 400 MG TAB PO SCH (08:43)
[2016-07-15] MEDS: FINASTERIDE 5 MG TAB PO SCH (08:44)
[2016-07-15] MEDS: DOXAZOSIN 4 MG TAB PO SCH ×2 (08:44→20:58)
[2016-07-15] MEDS: ENOXAPARIN 40 MG/0.4 ML SYRINGE SQ SCH (09:29)
[2016-07-15 09:35] LABS: Glucose,Whole Blood 118 mg/dL (75-99)
[2016-07-15 12:48] LABS: Glucose,Whole Blood 81 mg/dL (75-99)
--- NOTE | 2016-07-15 14:51 | P.CONS ---
History of Present Illness - Reason for Consult Consult date: 07/15/16 pancreatic cancer Requesting physician: Moo Hinojosa - Chief Complaint rigors - History of Present Illness Pt is a very pleasant male pt of Dr. Siu who presented to PCP Dr. Mehta, his PCP in early 2014 with c/o of "coke-colored" urine, persistent for a few weeks. He was sent to [facility] for evaluation, was found to have obstructive jaundice due to pancreatic head/neck mass, ERCP attempted but was unsuccessful. Pt sent to Dr. Clark at [facility] where he had ERCP, EUS and CBD plastic stent placement. 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 Pt could not undergo WHIPPLE due to proximity to vascular structures so neoadjuvant chemotherapy was recommended. He had completed 1 cycle days 1,8,15 and day 1 of cycle 2 of adjuvant Gemzar and Abraxane when he was hospitalized with cholangitis, he then went to Rehab for 6 weeks. He was re-evaluated by Dr Clark , not felt to be surgical candidate. 10/28/14 had another bout of cholangitis after CBD stint change. He was started on single agent gemzar day 1,8 and had 5 cycles plus day 1 of cycle 6, treatment held 02/19 due to stable disease and pt wanted to be monitored. Pt did well for quite sometime until he was admitted to [facility] in Apr 2016 with gastric outlet obstruction and was found to have locally-recurrent pancreatic head carcinoma. He was transfered to Dr. Clakr and had gastro- jeujenostomy. He was started on capcetabine 04/22, 2 week on 1 week off cycles were planned. He took it incorrectly for the 1st cycle (1 week on only), then it was held last month due to URI. He started what would be his 3rd cycle 3 days ago. Yesterday he started to have terrible shakes, uncontrollable, he did not check for fever, he had felt pretty good, denies oral irritation, sore throat, cough, SOB, abd pain or bloating, dysuria, diarrhea or constipation. He feels pretty good today. Review of Systems All systems: negative Constitutional: Reports as per HPI Past Medical History Past Medical History: Cancer, Heart Failure, Diabetes Mellitus, GERD/Reflux, Myocardial Infarction (MD), Osteoarthritis (OA), Pneumonia, Prostate Disorder, Pulmonary Embolus (PE) Additional Past Medical History / Comment(s): Pt admitted 04/11/16 with gram negative bacteremia, left lower pneumonia. Other medical hx: sepsis, pancreatic CA with past IV chemo and now oral chemo, gastric outlet obstruction , PE november 2013, [place] 2001, bilateral tinnitis, severe GERD, BPH, arthritis lower back with chronic back pain, . Last Myocardial Infarction Date:: 2001 History of Any Multi-Drug Resistant Organisms: None Reported Past Surgical History: Back Surgery, Bowel Resection, Joint Replacement Additional Past Surgical History / Comment(s): ivet filter placed november 2013;, EGD [facility] biliary stenting, 07/2014 ERCP which showed previous biliary stent migration-pt had stent replaced and dilatation, colonoscopy, L subclavian mediport, R total hip replacement. "GOO" stent placedment from stomach to intestines, 04/2016 gastric bypass was done at [facility]. Past Anesthesia/Blood Transfusion Reactions: No Reported Reaction Additional Past Anesthesia/Blood Transfusion Reaction / Comm: Pt has never recieved blood. Past Psychological History: Depression Additional Psychological History / Comment(s): Pt states after previous admission and discharge he went to rehab for 6 weeks for strengthening. He is now back home where he lives alone. He is independent. He performs his own ADLs. He uses a walker or cane to ambulate. He drives a car. Patient uses Homecare nurse and home physical therapy-[facility]. Smoking Status: Former smoker Past Alcohol Use History: None Reported Additional Past Alcohol Use History / Comment(s): Pt states he started smoking at age 11 (1954) and quit smoking in 1983. He states he was a 2ppd smoker. Pt states he was a past heavy drinker but has not drank in 2-3 yrs. Past Drug Use History: None Reported - Past Family History Father Family Medical History: Cancer Additional Family Medical History / Comment(s): Father at age 53 yrs of pancreatic cancer. Mother Family Medical History: No Reported History Additional Family Medical History / Comment(s): Mother lived to be 92 yrs old with no health problems known. Medications and Allergies Home Medications Medication Instructions Recorded Confirmed Type Doxazosin [Cardura] 2 mg PO BID 04/11/16 07/14/16 History Finasteride [Proscar] 5 mg PO DAILY 04/11/16 07/14/16 History Insulin Glargine,Hum.rec.anlog 64 unit SQ HS 04/11/16 07/14/16 History [Lantus Solostar] Omeprazole [PriLOSEC] 40 mg PO DAILY 04/11/16 07/14/16 History Rivaroxaban [Xarelto] 20 mg PO DAILY 04/11/16 07/14/16 History Sertraline [Zoloft] 50 mg PO DAILY 04/11/16 07/14/16 History Simvastatin [Zocor] 20 mg PO HS 04/11/16 07/14/16 History Tamsulosin HCl [Flomax] 0.4 mg PO DAILY 04/11/16 07/14/16 History metFORMIN HCL 1,000 mg PO BID 04/11/16 07/14/16 History Capecitabine [Xeloda] 1,000 mg PO DIRECTED 05/26/16 07/14/16 History Magnesium Oxide [Mag-Ox] 400 mg PO DAILY 05/26/16 07/14/16 History Furosemide [Lasix] 40 mg PO DAILY 07/14/16 07/14/16 History Sulfamethox-Tmp 800-160Mg [Bactrim 1 tab PO Q12HR 07/14/16 07/14/16 History DS 800-160 mg] Allergies Allergy/AdvReac Type Severity Reaction Status Date / Time Penicillins Allergy Itching Verified 07/14/16 17:18 Physical Exam Vitals: Vital Signs Temp Pulse Resp BP Pulse Ox 07/15/16 12:00 20 07/15/16 09:19 99 07/15/16 08:00 99.0 F 99 20 125/83 99 07/15/16 05:00 86 140/70 07/15/16 04:30 96 07/15/16 04:00 98.0 F 76 16 126/71 07/15/16 03:30 75 07/15/16 03:00 80 07/15/16 02:30 75 07/15/16 02:00 122 H 07/15/16 01:30 77 97 07/15/16 01:00 80 107/62 95 07/15/16 00:30 78 107/62 95 07/15/16 00:00 96.8 F L 79 16 107/62 95 07/14/16 23:30 84 107/62 100 07/14/16 23:00 71 20 99 07/14/16 22:30 80 119/60 95 07/14/16 22:28 62 119/60 94 L 07/14/16 20:30 99.5 F 87 18 119/60 99 07/14/16 18:45 99.5 F 100 18 110/65 07/14/16 17:55 92 135/68 99 Intake and Output 07/14/16 07/15/16 07/15/16 22:59 06:59 14:59 Intake Total 699 994 3532 Output Total 117 918 7976 Balance - Intake: IV 679 717 5683 Dextrose 5%-0.45% NaCl 1, 83 83 581 000 ml @ 83 mls/hr IV . Q12H3M ONE Rx#:[id number] Sodium Chloride 0.9% 1, 100 100 700 000 ml @ 100 mls/hr IV . Q10H STA Rx#:[id number] Output: Urine 097 337 3064 Other: Voiding Method Urinal Urinal Toilet Urinal # Voids 1 1 # Bowel Movements 1 1 Weight 92.5 kg 96.7 kg - Constitutional General appearance: cooperative, no acute distress, obese - EENT Eyes: anicteric sclerae, PERRLA ENT: hearing grossly normal, normal oropharynx - Neck Neck: no lymphadenopathy - Respiratory Respiratory: bilateral: CTA - Cardiovascular distant heart tones Rhythm: irregularly irregular Heart sounds: normal: S1, S2 leg Peripheral Edema: right: 1+, left: Trace - Gastrointestinal General gastrointestinal: no absent bowel sounds, no decreased bowel sounds, no distended, no hepatomegaly, no hyperactive bowel sounds, normal bowel sounds, no organomegaly, no rigid, no scaphoid, soft, no splenomegaly, no tenderness, no umbilical hernia, no ventral hernia - Integumentary Integumentary: pale - Neurologic Neurologic: CNII-XII intact - Musculoskeletal Musculoskeletal: strength equal bilaterally - Psychiatric Psychiatric: A&O x's 3, appropriate affect, intact judgment & insight Results CBC & Chem 7: 07/15/16 04:15 07/15/16 04:15 Labs: Abnormal Lab Results - Last 24 Hours (Table) 07/14/16 07/14/16 07/14/16 Range/Units 17:54 19:10 19:59 RBC (4.30-5.90) m/uL Hgb (13.0-17.5) gm/dL Hct (39.0-53.0) % MCHC (31.0-37.0) g/dL RDW (11.5-15.5) % Plt Count (150-450) k/uL Lymphocytes # (1.0-4.8) k/uL Sodium (137-145) mmol/L POC Glucose (mg/dL) 109 H 74 L 49 L (75-99) mg/dL Plasma Lactic Acid Terry (0.7-2.0) mmol/L Calcium (8.4-10.2) mg/dL 07/14/16 07/14/16 07/14/16 Range/Units 20:00 20:29 20:39 RBC (4.30-5.90) m/uL Hgb (13.0-17.5) gm/dL Hct (39.0-53.0) % MCHC (31.0-37.0) g/dL RDW (11.5-15.5) % Plt Count (150-450) k/uL Lymphocytes # (1.0-4.8) k/uL Sodium (137-145) mmol/L POC Glucose (mg/dL) 55 L 50 L (75-99) mg/dL Plasma Lactic Acid Terry 3.4 H* (0.7-2.0) mmol/L Calcium (8.4-10.2) mg/dL 07/14/16 07/14/16 07/15/16 Range/Units 21:10 22:21 02:04 RBC (4.30-5.90) m/uL Hgb (13.0-17.5) gm/dL Hct (39.0-53.0) % MCHC (31.0-37.0) g/dL RDW (11.5-15.5) % Plt Count (150-450) k/uL Lymphocytes # (1.0-4.8) k/uL Sodium (137-145) mmol/L POC Glucose (mg/dL) 177 H 102 H 46 L (75-99) mg/dL Plasma Lactic Acid Terry (0.7-2.0) mmol/L Calcium (8.4-10.2) mg/dL 07/15/16 07/15/16 07/15/16 Range/Units 02:32 02:59 04:15 RBC 3.88 L (4.30-5.90) m/uL Hgb 10.7 L (13.0-17.5) gm/dL Hct 34.5 L (39.0-53.0) % MCHC 30.9 L (31.0-37.0) g/dL RDW 19.0 H (11.5-15.5) % Plt Count 128 L (150-450) k/uL Lymphocytes # 0.7 L (1.0-4.8) k/uL Sodium (137-145) mmol/L POC Glucose (mg/dL) 66 L 117 H (75-99) mg/dL Plasma Lactic Acid Terry (0.7-2.0) mmol/L Calcium (8.4-10.2) mg/dL 07/15/16 07/15/16 07/15/16 Range/Units 04:15 06:01 07:55 RBC (4.30-5.90) m/uL Hgb (13.0-17.5) gm/dL Hct (39.0-53.0) % MCHC (31.0-37.0) g/dL RDW (11.5-15.5) % Plt Count (150-450) k/uL Lymphocytes # (1.0-4.8) k/uL Sodium 134 L (137-145) mmol/L POC Glucose (mg/dL) 102 H 60 L (75-99) mg/dL Plasma Lactic Acid Terry (0.7-2.0) mmol/L Calcium 8.2 L (8.4-10.2) mg/dL 07/15/16 07/15/16 Range/Units 08:16 09:32 RBC (4.30-5.90) m/uL Hgb (13.0-17.5) gm/dL Hct (39.0-53.0) % MCHC (31.0-37.0) g/dL RDW (11.5-15.5) % Plt Count (150-450) k/uL Lymphocytes # (1.0-4.8) k/uL Sodium (137-145) mmol/L POC Glucose (mg/dL) 62 L 118 H (75-99) mg/dL Plasma Lactic Acid Terry (0.7-2.0) mmol/L Calcium (8.4-10.2) mg/dL Chest x-ray: report reviewed Assessment and Plan (1) Pancreatic cancer metastasized to liver Narrative/Plan: Pt is currently on oral capecetabine, which will be held for now. He is not due for imaging regarding his malignancy until August so that will be held for now unless symptoms deem imaging necessary, did order Ca 19-9, his last Ca 19-9 was 68 06/17/16. Status: Chronic (2) Fever in adult Status: Acute (3) Rigors Narrative/Plan: ID has been consulted, will await evaluation and recommendations Status: Acute Plan: Pt has history of cholangitis US liver has been ordered for evaluation. Doppler of RLE ordered for swelling
[2016-07-15] MEDS ORDERED: RX INFO: IV CONTRAST WAS GIVEN 1 EACH MISC MISCELLANE PRN (15:11)
--- NOTE | 2016-07-15 15:25 | US ---
EXAMINATION TYPE: US venous doppler duplex LE RT DATE OF EXAM: 07/15/2016 3:13 PM COMPARISON: NONE CLINICAL HISTORY: unexplained swelling. Edema right leg, history of DVT, Reji filter 2 years ag o, patient on blood thinner x 4 years SIDE PERFORMED: Right VESSELS IMAGED: External Iliac Vein (EIV) Common Femoral Vein Deep Femoral Vein Greater Saphenous Vein * Femoral Vein Popliteal Vein Small Saphenous Vein * Proximal Calf Veins (* superficial vessels) TECHNOLOGIST IMPRESSION: Right Leg: Appears negative for acute DVT No popliteal fossa lesion is seen. IMPRESSION: THIS EXAMINATION IS NEGATIVE FOR DVT WITHIN THE RIGHT LEG.
[2016-07-15] MEDS: IOHEXOL 350 MG/ML 25 ML BOTTLE (ORAL USE) PO PRN ×2 (15:45→16:41)
--- NOTE | 2016-07-15 16:11 | P.HPIM ---
History of Present Illness H&P Date: 07/15/16 Chief Complaint: Generalized weakness Patient is a 75-year-old white male, patient of Dr. Olguin in the outpatient setting, with complex medical history significant for obstructive jaundice with stent placement secondary to pancreatic cancer with metastasis to liver with gastric outlet obstruction status post gastrojejunostomy currently on chemotherapy with last dose 3 days ago. Patient presented to the hospital with complaints of acute tremors and chills that started at 3 PM yesterday. No history of recent fevers, nausea, vomiting, shortness of breath, or chest pain. No history of diarrhea constipation. No history of urinary urgency, hesitancy , dysuria, hematuria. Patient reports that his blood sugars have been in the 70s over the last couple days and he has been cutting down on his metformin dose from 2 to one and sometimes not even taking it. Patient reports leg swelling to his bilateral lower extremities for which he takes Lasix daily. Chest x-ray with no acute process. EKG without ischemic changes. Admission labs with evidence of anemia with hemoglobin of 11.5, hyperglycemia with a blood sugar of 46, elevated plasma lactic acid venous of 3.4. Phosphorus 2.1, magnesium 1.1, alkaline phosphatase elevated at 269. Admission temperature 101. Urinalysis negative. Influenza screen negative. Patient was fluid resuscitated with 2 L of normal saline and given 1 dose of IV ceftriaxone. Patient was started on IV fluids in the form of D5 0.45 after being given 1 amp of dextrose. Upon examination, patient is feeling well. Patient reports he had a few tremors with chills this morning but it since has subsided. Past Medical History Past Medical History: Cancer, Heart Failure, Diabetes Mellitus, GERD/Reflux, Myocardial Infarction (NV), Osteoarthritis (OA), Pneumonia, Prostate Disorder, Pulmonary Embolus (PE) Additional Past Medical History / Comment(s): Pt admitted 04/11/16 with gram negative bacteremia, left lower pneumonia. Other medical hx: sepsis, pancreatic CA with past IV chemo and now oral chemo, gastric outlet obstruction , PE november 2013, NV 2001, bilateral tinnitis, severe GERD, BPH, arthritis lower back with chronic back pain, . Last Myocardial Infarction Date:: 2001 History of Any Multi-Drug Resistant Organisms: None Reported Past Surgical History: Back Surgery, Bowel Resection, Joint Replacement Additional Past Surgical History / Comment(s): ivet filter placed november 2013;, EGD wt biliary stenting, 07/2014 ERCP which showed previous biliary stent migration-pt had stent replaced and dilatation, colonoscopy, L subclavian mediport, R total hip replacement. "GOO" stent placedment from stomach to intestines, 04/2016 gastric bypass was done at [facility]. Past Anesthesia/Blood Transfusion Reactions: No Reported Reaction Additional Past Anesthesia/Blood Transfusion Reaction / Comment(s): Pt has never recieved blood. Past Psychological History: Depression Additional Psychological History / Comment(s): Pt states after previous admission and discharge he went to rehab for 6 weeks for strengthening. He is now back home where he lives alone. He is independent. He performs his own ADLs. He uses a walker or cane to ambulate. He drives a car. Patient uses [facility] nurse and home physical therapy-[facility]. Smoking Status: Former smoker Past Alcohol Use History: None Reported Additional Past Alcohol Use History / Comment(s): Pt states he started smoking at age 11 (2) and quit smoking in 1983. He states he was a 2ppd smoker. Pt states he was a past heavy drinker but has not drank in 2-3 yrs. Past Drug Use History: None Reported - Past Family History Father Family Medical History: Cancer Additional Family Medical History / Comment(s): Father at age 53 yrs of pancreatic cancer. Mother Family Medical History: No Reported History Additional Family Medical History / Comment(s): Mother lived to be 92 yrs old with no health problems known. Medications and Allergies Home Medications Medication Instructions Recorded Confirmed Type Doxazosin [Cardura] 2 mg PO BID 04/11/16 07/14/16 History Finasteride [Proscar] 5 mg PO DAILY 04/11/16 07/14/16 History Insulin Glargine,Hum.rec.anlog 64 unit SQ HS 04/11/16 07/14/16 History [Lantus Solostar] Omeprazole [PriLOSEC] 40 mg PO DAILY 04/11/16 07/14/16 History Rivaroxaban [Xarelto] 20 mg PO DAILY 04/11/16 07/14/16 History Sertraline [Zoloft] 50 mg PO DAILY 04/11/16 07/14/16 History Simvastatin [Zocor] 20 mg PO HS 04/11/16 07/14/16 History Tamsulosin HCl [Flomax] 0.4 mg PO DAILY 04/11/16 07/14/16 History metFORMIN HCL 1,000 mg PO BID 04/11/16 07/14/16 History Capecitabine [Xeloda] 1,000 mg PO DIRECTED 05/26/16 07/14/16 History Magnesium Oxide [Mag-Ox] 400 mg PO DAILY 05/26/16 07/14/16 History Furosemide [Lasix] 40 mg PO DAILY 07/14/16 07/14/16 History Sulfamethox-Tmp 800-160Mg [Bactrim 1 tab PO Q12HR 07/14/16 07/14/16 History DS 800-160 mg] Allergies Allergy/AdvReac Type Severity Reaction Status Date / Time Penicillins Allergy Itching Verified 07/14/16 17:18 Physical Exam Vitals: Vital Signs Temp Pulse Resp BP Pulse Ox 07/15/16 12:00 20 07/15/16 09:19 99 07/15/16 08:00 99.0 F 99 20 125/83 99 07/15/16 05:00 86 140/70 07/15/16 04:30 96 07/15/16 04:00 98.0 F 76 16 126/71 07/15/16 03:30 75 07/15/16 03:00 80 07/15/16 02:30 75 07/15/16 02:00 122 H 07/15/16 01:30 77 97 07/15/16 01:00 80 107/62 95 07/15/16 00:30 78 107/62 95 07/15/16 00:00 96.8 F L 79 16 107/62 95 07/14/16 23:30 84 107/62 100 07/14/16 23:00 71 20 99 07/14/16 22:30 80 119/60 95 07/14/16 22:28 62 119/60 94 L 07/14/16 20:30 99.5 F 87 18 119/60 99 07/14/16 18:45 99.5 F 100 18 110/65 07/14/16 17:55 92 135/68 99 Intake and Output 07/14/16 07/15/16 07/15/16 22:59 06:59 14:59 Intake Total 581 126 8152 Output Total 203 672 7402 Balance - Intake: IV 798 985 0995 Dextrose 5%-0.45% NaCl 1, 83 83 581 000 ml @ 83 mls/hr IV . Q12H3M ONE Rx#:[id number] Sodium Chloride 0.9% 1, 100 100 700 000 ml @ 100 mls/hr IV . Q10H STA Rx#:[id number] Output: Urine 710 776 5707 Other: Voiding Method Urinal Urinal Toilet Urinal # Voids 1 1 # Bowel Movements 1 1 Weight 92.5 kg 96.7 kg GENERAL: Pt awake and alert, well-appearing, well-nourished, and in no acute distress. HEAD: Atraumatic, normocephalic. EYES: Pupils equal, round, and reactive to light, extraocular movements intact, sclera anicteric, conjunctiva are normal. ENT: Oropharynx clear without exudates. Moist mucous membranes. NECK:Normal range of motion, supple without lymphadenopathy or JVD. LUNGS: Breath sounds clear to auscultation bilaterally. No wheezes, rales, or rhonchi. HEART: Heart S1, S2, no S3 or S4. Irregularly irregular. No murmurs, rubs or gallops. ABDOMEN: Soft, nontender, nondistended, normoactive bowel sounds. No guarding, no rebound. No masses or organomegaly appreciated. EXTREMITIES: 2+ peripheral pulses. 1+ edema to bilateral lower extremities. No calf tenderness. NEUROLOGICAL: Pt oriented x 3. No focal deficits noted. Strength and sensation grossly intact. PSYCH: Normal mood, normal affect. SKIN: Warm, dry, intact. Results CBC & Chem 7: 07/15/16 04:15 07/15/16 04:15 Labs: Abnormal Lab Results - Last 24 Hours (Table) 07/14/16 07/14/16 07/14/16 Range/Units 17:54 19:10 19:59 RBC (4.30-5.90) m/uL Hgb (13.0-17.5) gm/dL Hct (39.0-53.0) % MCHC (31.0-37.0) g/dL RDW (11.5-15.5) % Plt Count (150-450) k/uL Lymphocytes # (1.0-4.8) k/uL Sodium (137-145) mmol/L POC Glucose (mg/dL) 109 H 74 L 49 L (75-99) mg/dL Plasma Lactic Acid Terry (0.7-2.0) mmol/L Calcium (8.4-10.2) mg/dL 07/14/16 07/14/16 07/14/16 Range/Units 20:00 20:29 20:39 RBC (4.30-5.90) m/uL Hgb (13.0-17.5) gm/dL Hct (39.0-53.0) % MCHC (31.0-37.0) g/dL RDW (11.5-15.5) % Plt Count (150-450) k/uL Lymphocytes # (1.0-4.8) k/uL Sodium (137-145) mmol/L POC Glucose (mg/dL) 55 L 50 L (75-99) mg/dL Plasma Lactic Acid Terry 3.4 H* (0.7-2.0) mmol/L Calcium (8.4-10.2) mg/dL 07/14/16 07/14/16 07/15/16 Range/Units 21:10 22:21 02:04 RBC (4.30-5.90) m/uL Hgb (13.0-17.5) gm/dL Hct (39.0-53.0) % MCHC (31.0-37.0) g/dL RDW (11.5-15.5) % Plt Count (150-450) k/uL Lymphocytes # (1.0-4.8) k/uL Sodium (137-145) mmol/L POC Glucose (mg/dL) 177 H 102 H 46 L (75-99) mg/dL Plasma Lactic Acid Terry (0.7-2.0) mmol/L Calcium (8.4-10.2) mg/dL 07/15/16 07/15/16 07/15/16 Range/Units 02:32 02:59 04:15 RBC 3.88 L (4.30-5.90) m/uL Hgb 10.7 L (13.0-17.5) gm/dL Hct 34.5 L (39.0-53.0) % MCHC 30.9 L (31.0-37.0) g/dL RDW 19.0 H (11.5-15.5) % Plt Count 128 L (150-450) k/uL Lymphocytes # 0.7 L (1.0-4.8) k/uL Sodium (137-145) mmol/L POC Glucose (mg/dL) 66 L 117 H (75-99) mg/dL Plasma Lactic Acid Terry (0.7-2.0) mmol/L Calcium (8.4-10.2) mg/dL 07/15/16 07/15/16 07/15/16 Range/Units 04:15 06:01 07:55 RBC (4.30-5.90) m/uL Hgb (13.0-17.5) gm/dL Hct (39.0-53.0) % MCHC (31.0-37.0) g/dL RDW (11.5-15.5) % Plt Count (150-450) k/uL Lymphocytes # (1.0-4.8) k/uL Sodium 134 L (137-145) mmol/L POC Glucose (mg/dL) 102 H 60 L (75-99) mg/dL Plasma Lactic Acid Terry (0.7-2.0) mmol/L Calcium 8.2 L (8.4-10.2) mg/dL 07/15/16 07/15/16 Range/Units 08:16 09:32 RBC (4.30-5.90) m/uL Hgb (13.0-17.5) gm/dL Hct (39.0-53.0) % MCHC (31.0-37.0) g/dL RDW (11.5-15.5) % Plt Count (150-450) k/uL Lymphocytes # (1.0-4.8) k/uL Sodium (137-145) mmol/L POC Glucose (mg/dL) 62 L 118 H (75-99) mg/dL Plasma Lactic Acid Terry (0.7-2.0) mmol/L Calcium (8.4-10.2) mg/dL Chest x-ray: report reviewed Thrombosis Risk Factor Assmnt - DVT/VTE Prophylaxis DVT/VTE Prophylaxis: Pharmacologic Prophylaxis ordered, Mechanical Prophylaxis ordered - Choose All That Apply Any of the Below Risk Factors Present?: Yes Each Factor Represents 1 point: Serious lung disease incl. pneumonia (< 1month) , Swollen legs (current) Other Risk Factors: Yes Each Risk Factor Represents 2 Points: Malignancy Each Risk Factor Represents 3 Points: Age 75 years or older, History of DVT/PE Other congenital or acquired thrombophilia - If yes, enter type in comment: No Thrombosis Risk Factor Assessment Total Risk Factor Score: 10 Thrombosis Risk Factor Assessment Level: High Risk Assessment and Plan Plan: Impression and plan: 1. SIRS, present on admission, with evidence of fever and lactic acidosis. Consult infectious disease service. 2. Diabetes mellitus type 2, uncontrolled, with evidence of hypoglycemia. Will discontinue oral anti-glycemic medications as well as Lantus. Check blood sugars before meals at bedtime with Humalog sliding scale. 3. Elevated alkaline phosphatase, present on admission, chronic. 4. History of pancreatic cancer with metastasis to liver with gastric outlet obstruction status post stent placement and gastrojejunostomy. Consult oncology service. 5. Colonic diverticulosis. 7. History of GERD. 8. Hyperlipidemia. 10. Hypertension. 11. History of pulmonary embolism status post Ivet filter placement on Lovenox. 12. BPH. Continue Proscar. 13. Anemia of malignancy. 14. History of myocardial infarction. 15. History of recent E. coli bacteremia. 16. Chronic back pain with history of osteoarthritis. 17. History of small bowel obstruction status post bowel resection. 18. History of depression, stable. 19. Gait dysfunction. Patient uses cane or walker. 20. History of nicotine dependence. 21. History of EtOH abuse, quit approximately 3 years ago. Continue to monitor patient. Home medications of been reviewed and resumed as appropriate. Continue GI and DVT prophylaxis. Continue to follow with consultants. Repeat CBC, BMP, magnesium and phosphorus in a.m. The above impression and plan have been discussed and directed by Dr. Olguin. Moo COPPOLA acting as scribe for Dr. Olguin.
[2016-07-15] MEDS: metroNIDAZOLE 500 MG TAB PO SCH ×2 (16:26→21:02)
[2016-07-15] MEDS: DEXTROSE 5%-0.45% NACL 1,000 ML IV SCH (16:41)
[2016-07-15] MEDS: cefTRIAXone 2,000 MG in SODIUM CHLORIDE 0.9% 100 ML IVPB SCH (16:41)
[2016-07-15] MEDS: SODIUM CHLORIDE 0.9% 1,000 ML IV SCH (16:42)
--- NOTE | 2016-07-15 18:29 | CT ---
EXAMINATION TYPE: CT abdomen pelvis w con DATE OF EXAM: 07/15/2016 6:06 PM COMPARISON: 05/27/2016 HISTORY: Pt states of pancreatic CA. CT DLP: 1487.4 mGycm Automated exposure control for dose reduction was used. TECHNIQUE: Helical acquisition of images was performed from the lung bases through the pelvis. CONTRAST: Performed with Oral Contrast and with IV Contrast, patient injected with 100 mL of Omnipaque 300. FINDINGS: Lung bases are clear. There is no pleural effusion. Heart size is normal. There is no pericardial eff usion. There is air in the biliary tree. There are surgical clips at the joselyn hepatis. There is a bi liary stent. There is an approximate 6 cm mass at the head of the pancreas. There are multiple low-de nsity lesions in the liver. The largest is in the anterior right lobe and measures 2.5 cm. There is a scites fluid noted. Spleen shows a 1.5 cm cyst. There is no adrenal mass. Kidneys show satisfactory contrast opacification. There is no hydronephrosi s. There is inferior vena cava filter noted. There is no evidence of a bowel obstruction. I see no intestinal wall thickening. There are no dilate d loops. There are spondylotic changes in the lumbar spine. Cholecystectomy is noted. IMPRESSION: THERE IS A LARGE MASS IN THE REGION OF THE PANCREATIC HEAD CONSISTENT WITH A TUMOR. BILIARY STENT NOT ED. NO DILATED DUCTS. THERE IS AIR IN THE BILIARY TREE NO DOMINANT RELATED TO THE STENT. THERE ARE MU LTIPLE LOW-DENSITY LIVER LESIONS CONSISTENT WITH METASTATIC DISEASE THAT APPEARS SLIGHTLY INCREASED S RAQUEL LAST CT SCAN. THERE IS MILD TO MODERATE ASCITES FLUID THAT IS ESSENTIALLY NEW COMPARED TO OLD EX AM. THE PROXIMAL DUODENUM IS NOT WELL DEFINED AND THERE COULD BE TUMOR INVOLVEMENT.
[2016-07-15 18:33] LABS: Glucose,Whole Blood 153 mg/dL (75-99)
--- NOTE | 2016-07-15 19:26 | CONS ---
DATE OF CONSULTATION: 07/15/2016 REASON FOR CONSULTATION: Fever. HISTORY OF PRESENT ILLNESS: The patient is a 75-year-old male with past medical history significant for a pancreatic cancer with gastric outlet obstruction, status post stent placement. The patient was hospitalized in April 2016. At that time, he did have an E. coli bacteremia felt to be abdominal source. He did have CT of the abdomen and pelvis negative for any premature abscess. The patient did finish antibiotic therapy and overall was doing well. Did have another admission to the same facility on 05/27/2016 with rigors and chills though no fever was documented at that time. He did have evidence of lactic acidosis. A CT of abdomen and pelvis was repeated, which was negative. Patient was treated with IV antibiotics in the hospital. However, discharged home on no antibiotic as no clear focus of infection. The patient was doing well until yesterday when he started having rigors and chills when he was sitting outside. He was feeling so weak that he could not get up. The patient denies having fever at home though he did have a fever of 101 when he came to the hospital. In the ER, patient subsequently, the patient currently denies having any headache or URI symptoms. Denies any chest pain or shortness of breath, has some mild cough that is chronic for no worsening. Denies significant abdominal pain. No diarrhea. The patient now on evaluation did have a chest x-ray was negative. He did have a UA that was negative. His white count normal at 7.7. His kidney function was normal. UA has been negative. Blood culture has been obtained. The patient has been admitted to the ICU and he did receive a dose of Rocephin and none has been continued. I was asked to see the patient for further recommendation regarding antibiotic therapy. REVIEW OF SYSTEMS: CONSTITUTIONAL: Positive for weakness along with fever and chills. EYES: No complaint. ENT: No complaint. RESPIRATORY: No complaint. CARDIOVASCULAR: No complaint. GENITOURINARY: No complaint. GASTROINTESTINAL: No complaint. MUSCULOSKELETAL: No complaint. INTEGUMENTARY: No complaint. PSYCHIATRY: No complaint. ENDOCRINE: No complaint. NEUROLOGIC: No complaint. PAST MEDICAL HISTORY: Significant for diabetes mellitus, gastroesophageal reflux disease, history of DVT and PE, benign prostatic hypertrophy, Escherichia coli bacteremia, pancreatic cancer, gastric outlet obstruction, gastroesophageal reflux disease. PAST SURGICAL HISTORY: Bowel resection, joint replacement and back surgery, stent placement. SOCIAL HISTORY: Remote history of smoking. No drinking or drug use. FAMILY HISTORY: Father with history of pancreatic cancer. Mother of old age at 92. ALLERGIES: PENICILLIN; however, tolerated Rocephin without any problem. Medications currently include the patient is on: 1. Lipitor. 2. Cardura. 3. Lovenox. 4. Proscar. 5. Lasix. 6. Lantus. 7. Humalog. 8. Mag oxide. 9. Protonix. 10. Zoloft. 11. Flomax. On examination, blood pressure is 108/52 with a pulse of 77, temperature 98.3 with a T-max of 101 degrees Fahrenheit. He is 96% on room air. General description is an elderly male, lying in bed in no distress. No tachypnea or accessory muscle of respiration use. HEENT examination shows slight pallor. There is no scleral icterus. Oral mucous membranes dry. NECK: Trachea central. There is no thyromegaly. LUNGS: Unlabored breathing. Clear to auscultation anteriorly. HEART: S1, S2. Regular rate and rhythm. ABDOMEN: Soft, no tenderness. No guarding or rigidity. EXTREMITIES: No edema of feet. Examination of the skin, no rash or mass palpable. NEUROLOGICAL: Patient is awake, alert, oriented x3. Mood and affect normal. LABS: Hemoglobin is 10.7, white count 4.7. BUN of 9, creatinine 0.70. Electrolytes have been normal. Liver enzymes are normal. Urine has been negative. Influenza A and B serology has been negative. Chest x-ray report negative. DIAGNOSTIC IMPRESSION AND PLAN: Patient present to the hospital with generalized weakness and did have a fever of 101 degrees Fahrenheit in a patient who did have a history of pancreatic head cancer with a gastric outlet obstruction did require stent placement with question of possible abdominal source as the patient did not have any other clinical focus of infection. Chest x-ray report negative for any pneumonia. UA has been negative. Influenza serology was negative. PLAN: 1. We will obtain CT of abdomen and pelvis with contrast to make sure there is no evidence of any abnormal process responsible for his fevers. 2. Will empirically start the patient on Rocephin and Flagyl while waiting for the cultures to finalize. 3. Will follow up on his clinical condition and cultures to further adjust the medication if needed. Thank you for this consultation. Will follow this patient along with you. FRANCES
[2016-07-15] MEDS: ATORVASTATIN 10 MG TAB PO SCH (20:58)
[2016-07-15] MEDS: FAMOTIDINE 20 MG TAB PO SCH (20:59)
[2016-07-15] MEDS ORDERED: INSULIN GLARGINE 100 UNIT/ML 10 ML VIAL SQ SCH (21:00)
[2016-07-15 21:59] LABS: Glucose,Whole Blood 121 mg/dL (75-99)
[2016-07-16 00:50] LABS: Anion Gap 7 mmol/L; Blood Urea Nitrogen 6 mg/dL (9-20); Calcium 8.1 mg/dL (8.4-10.2); Carbon Dioxide 25 mmol/L (22-30); Chloride 105 mmol/L (98-107); Glucose 84 mg/dL (74-99); Magnesium 1.8 mg/dL (1.6-2.3); Non-African American GFR(MDRD) >60 (>60 ml/min/1.73 sqM); Potassium 4.1 mmol/L (3.5-5.1); Sodium 137 mmol/L (137-145)
[2016-07-16] MEDS ORDERED: ATROPINE SULFATE 0.1 MG/ML 10ML SYRINGE ONE (01:45)
[2016-07-16] MEDS ORDERED: Magnesium Replacement Protocol 1 EACH MISC MISCELLANE PRN (01:47)
[2016-07-16] MEDS: MAGNESIUM SULFATE-D5W PMX 1 GM in DEXTROSE/WATER 1 100ML.BAG IVPB SCH ×2 (02:08→03:33)
[2016-07-16] MEDS: SODIUM CHLORIDE 0.9% 1,000 ML IV SCH ×2 (03:34→13:54)
[2016-07-16 05:55] LABS: Anisocytosis Slight; CH 27.2; CHCM 30.8; HCT 35.6 % (39.0-53.0); HDW 2.49; HGB 10.7 gm/dL (13.0-17.5); Hypochromasia Slight; MCH 26.7 pg (25.0-35.0); MCHC 30.1 g/dL (31.0-37.0); MCV 88.7 fL (80.0-100.0); Mean Platelet Volume 7.5; RBC 4.01 m/uL (4.30-5.90); WBC 5.5 k/uL (3.8-10.6)
[2016-07-16 06:13] LABS: ALT 29 U/L (21-72); AST 26 U/L (17-59); Alkaline Phosphatase 213 U/L (38-126); Anion Gap 7 mmol/L; Blood Urea Nitrogen 5 mg/dL (9-20); Calcium 8.1 mg/dL (8.4-10.2); Carbon Dioxide 25 mmol/L (22-30); Chloride 106 mmol/L (98-107); Glucose 77 mg/dL (74-99); Magnesium 2.2 mg/dL (1.6-2.3); Non-African American GFR(MDRD) >60 (>60 ml/min/1.73 sqM); Phosphorous 3.3 mg/dL (2.5-4.5); Potassium 3.9 mmol/L (3.5-5.1); Sodium 138 mmol/L (137-145); Total Bilirubin 0.5 mg/dL (0.2-1.3); Total Protein 5.4 g/dL (6.3-8.2)
--- NOTE | 2016-07-16 07:48 | US ---
EXAMINATION TYPE: US liver DATE OF EXAM: 07/16/2016 7:37 AM COMPARISON: 07/15/2016 CLINICAL HISTORY: fever NOS, history of cholangitis. Pt has history of pancreatic CA with mets to [facility], recent abnormal CT EXAM MEASUREMENTS: Liver Length: 17.1 cm CBD: 0.7 cm Right Kidney: 12.7 x 5.6 x 5.5 cm FINDINGS: Pancreas: Large, solid mass at head= 5.1cm/ "Normal pancreatic tissue unable to be visualized due to overlying bowel gas Liver: Heterogeneous, only one lesion visualized by US, right anterior lobe= 2.4 x 2.1 x 2.0 cm/ [facility] er liver lesions visualized on CT unable to be seen Gallbladder: Surgically absent CBD: wnl Right Kidney: wnl Small amount of ascites present IMPRESSION: 1. Pancreatic mass with liver lesions suggestive of metastases 2. Very small amount of ascites
[2016-07-16] MEDS: INSULIN LISPRO (humaLOG) 300 UNIT/3 ML VIAL SQ SCH ×3 (08:34→17:24)
[2016-07-16 08:35] LABS: Glucose,Whole Blood 74 mg/dL (75-99)
[2016-07-16] MEDS: ENOXAPARIN 40 MG/0.4 ML SYRINGE SQ SCH (08:35)
[2016-07-16] MEDS: PANTOPRAZOLE 40 MG TABLET PO SCH (08:35)
[2016-07-16] MEDS: DEXTROSE 5%-0.45% NACL 1,000 ML IV SCH ×2 (08:36→15:55)
[2016-07-16] MEDS: metroNIDAZOLE 500 MG TAB PO SCH ×3 (08:37→21:54)
[2016-07-16] MEDS: SERTRALINE 50 MG TAB PO SCH (08:37)
[2016-07-16] MEDS: MAGNESIUM OXIDE 400 MG TAB PO SCH (08:37)
[2016-07-16] MEDS: FUROSEMIDE 40 MG TAB PO SCH (08:37)
[2016-07-16] MEDS: FINASTERIDE 5 MG TAB PO SCH (08:37)
[2016-07-16] MEDS: TAMSULOSIN 0.4 MG CAP.ER.24H PO SCH (08:37)
[2016-07-16] MEDS: FAMOTIDINE 20 MG TAB PO SCH (08:38)
[2016-07-16] MEDS: DOXAZOSIN 4 MG TAB PO SCH ×2 (08:40→21:54)
[2016-07-16] MEDS ORDERED: POTASSIUM CHLORIDE ER 20 MEQ TAB.ER PO SCH (09:00)
[2016-07-16 11:58] LABS: Glucose,Whole Blood 207 mg/dL (75-99)
--- NOTE | 2016-07-16 14:10 | CONS ---
DATE OF CONSULTATION: Mr. Mariano is a 75-year-old gentleman who is seen for cardiac evaluation. This patient's electronic medical records from past medical records and lab tests reviewed. This patient has a history of pancreatic cancer with metastatic liver disease and admitted with fever and chills and patient has been treated for infection, exact etiology of the infection is unclear. We were requested to see this patient in consultation because of intermittent episodes of sinus bradycardia. The patient is asymptomatic. Patient has a past history of DVT and PE. In view of that, the patient has been treated with Xarelto. The patient denies any prior history of myocardial infarction or denies any definite history of syncope. Please refer to the patient's medical records for the past history. Patient's home medications included Flomax, Zocor, Zoloft, Xarelto, Lasix, Proscar, Cardura and Xeloda. Physical examination at present reveals a 75-year-old gentleman who does not appear to be in acute distress. The patient's heart rate at present is 60 beats per minute Intermittent short episodes of sinus bradycardia and PACs are noted. Blood pressure is 126/77 mmHg. Head/ENT examination is negative. Neck is supple. There is no increase in jugular venous pressure. Both the carotid pulses are felt. There is no bruit. Chest is symmetrical. HEART: The PMI is not felt. First and second heart sounds are normal. Lungs are clinically clear to auscultation and percussion. ABDOMEN: Soft. Liver and spleen are not enlarged. Bowel sounds are heard. EXTREMITIES: Peripheral pulsations are 2+. This patient's EKG reviewed, which shows intermittent episodes of sinus bradycardia and PACs. The patient is asymptomatic. Patient's hemoglobin is 10.7. Electrolytes are normal. FINAL IMPRESSION: This patient is admitted with fever and chills with evidence of infection. Patient has a past history of pancreatic cancer with metastasis to the liver. Patient also has a history of deep venous thrombosis and pulmonary embolism. The patient has been having intermittent episodes of sinus bradycardia from which the patient is asymptomatic, I cannot completely rule out the blocked PACs. We will continue at present observation and we will recommend to start the patient back on Xarelto 20 mg daily because of his history of pulmonary embolism and cancer and Lovenox may be discontinued. We will do echo and Doppler study and T4 and TSH.
[2016-07-16] MEDS: cefTRIAXone 2,000 MG in SODIUM CHLORIDE 0.9% 100 ML IVPB SCH (15:54)
[2016-07-16] MEDS: RIVAROXABAN 10 MG TAB PO SCH (17:20)
[2016-07-16 17:26] LABS: Glucose,Whole Blood 261 mg/dL (75-99)
--- NOTE | 2016-07-16 19:00 | PN ---
DATE OF SERVICE: 07/16/2016 I am covering for Dr. Olguin. This 75-year-old gentleman admitted with generalized weakness. He is being closely monitored at this time. The patient had bradycardia with some sinus arrhythmia and PACs. The patient is also found to have SIRS with features of lactic acidosis the possibility of sepsis was also considered. An infectious disease evaluation was also sought and thought of infection with an abdominal source. Liver ultrasound was done which showed pancreatic or liver lesions or history of metastasis and small amount of ascites. Abdominal-pelvis CAT scan showed large mass in the region of pancreatic head consistent with tumor and with biliary stent. Multiple low-density liver lesions. Oncology team is also following the patient closely. PAST MEDICAL HISTORY: Reviewed. REVIEW OF SYSTEMS: CARDIOVASCULAR: No angina or palpitations. RESPIRATORY: As mentioned earlier. GI: As mentioned earlier. GI: No dysuria. NEUROLOGIC: No numbness, tingling, weakness present. Current medications are reviewed, include: 1. Lipitor 10 mg p.o. q.h.s. 2. Rocephin 2 g daily. 3. Proscar. 4. Lasix 40 mg daily. 5. Humalog to scale. 6. Magnesium oxide. 7. Protonix. 8. Xarelto. 9. Zoloft. 10. Flomax. PHYSICAL EXAM: Patient is alert and oriented x3. Pulse 72, blood pressure 119/77, respirations 17, temperature 98 degrees, pulse ox 98% on room air. HEENT: Conjunctivae pale. Oral mucosa moist. NECK: No jugular venous distension. No carotid bruits. No lymph node enlargement. CARDIOVASCULAR: S1 and S2. No S3. No S4. Breath sounds diminished in the bases. A few rhonchi. No crackles. ABDOMEN: Soft, nontender. No mass palpable. LEGS: No edema. No swelling. NERVOUS SYSTEM: Higher functions as mentioned. Moves all 4 limbs. LYMPHATICS: No lymph nodes palpable in neck or axillae. Mild diffuse weakness. SKIN: No ulcer, rash or bleeding. LABS: WBC 5.8, hemoglobin is 10.7. Albumin is 2.4. Protein is 5.4. ASSESSMENT: 1. Recurrent fever and chills, possible with undetermined origin. 2. Pancreatic cancer, metastatic, status post chemotherapy. 3. Severe bradycardia with possibly premature atrial contractions. 4. Anemia, normocytic, possibly anemia of chronic disease. 5. Mild thrombocytopenia. 6. Hypoalbuminemia with mild to moderate protein-calorie malnutrition. 7. History of congestive heart failure. 8. History of diabetes mellitus type 2. 9. History of gastroesophageal reflux disease. 10. History of myocardial infarction. 11. History of degenerative joint disease. 12. History of pneumonia. 13. History of prostate disorder. 14. History of pulmonary embolism. 15. History of benign prostatic hypertrophy. 16. History of gastroesophageal reflux disease. 17. History of degenerative joint disease. 18. History of bowel resection. 19. History of depression. 20. FULL CODE. RECOMMENDATIONS AND DISCUSSION: In this 75-year-old gentleman who presented with multiple complex medical issues, will monitor the patient closely. Continue with the current medications. Continue with symptomatic treatment. Also recommend resuming the home medications, monitor blood pressure closely. Will continue recommend a cardiology consultation as well and cardiovascular workup, also. I will also check ( ) if this not previously. Overall prognosis guarded because of multiple complex medical issues. Monitor the patient closely in ICU at this time. Discussed with the patient, who understands and agrees.
--- NOTE | 2016-07-16 19:08 | ECHOF ---
Referral Reason:Arrythmia MEASUREMENTS -------- HEIGHT: 182.9 cm WEIGHT: 94.3 kg BP: RVIDd: 3.0 cm (< 3.3) IVSd: 1.3 cm (0.6 - 1.1) LVIDd: 4.2 cm (3.9 - 5.3) LVPWd: 1.0 cm (0.6 - 1.1) IVSs: 1.5 cm LVIDs: 3.0 cm LVPWs: 1.7 cm LA Diam: 3.8 cm (2.7 - 3.8) LAESV Index (A-L): 19.04 ml/m Ao Diam: 3.7 cm (2.0 - 3.7) AV Cusp: 2.3 cm (1.5 - 2.6) LA Diam: 4.6 cm (2.7 - 3.8) MV EXCURSION: 23.037 mm (> 18.000) MV EF SLOPE: 49 mm/s (70 - 150) EPSS: 0.7 cm MV E Estrada: 0.54 m/s MV DecT: 245 ms MV A Estrada: 0.91 m/s MV E/A Ratio: 0.60 RAP: 5.00 mmHg RVSP: 21.55 mmHg FINDINGS -------- Undetermined rhythm. This was a technically good study. There is mild concentric left ventricular hypertrophy. Overall left ventricular systolic function is low-normal with, an EF between 50 - 55 %. The right ventricle is normal in size. Normal LA size by volume 22+/-6 ml/m2. The right atrial size is normal. There is mild aortic valve sclerosis. There is no evidence of aortic regurgitation. Mild mitral annular calcification present. Mild mitral regurgitation is present. Mild tricuspid regurgitation present. There is no evidence of pulmonary hypertension. The right ventricular systolic pressure, as measured by Doppler, is 21.55mmHg. There is no pulmonic regurgitation present. The aortic root size is normal. There is no pericardial effusion. CONCLUSIONS -------- 1. There is mild concentric left ventricular hypertrophy. 2. Overall left ventricular systolic function is low-normal with, an EF between 50 - 55 %. 3. There is mild aortic valve sclerosis. 4. Mild mitral annular calcification present. 5. Mild mitral regurgitation is present. 6. Mild tricuspid regurgitation present. 7. There is no evidence of pulmonary hypertension. 8. The right ventricular systolic pressure, as measured by Doppler, is 21.55mmHg. 9. There is no pulmonic regurgitation present. REINFORCED IRONWORKER: Adelaide Grewal RDCS
[2016-07-16 20:34] LABS: Glucose,Whole Blood 240 mg/dL (75-99)
[2016-07-16] MEDS ORDERED: INSULIN GLARGINE 100 UNIT/ML 10 ML VIAL SQ SCH (21:00)
[2016-07-16] MEDS: ATORVASTATIN 10 MG TAB PO SCH (21:54)
[2016-07-17 03:04] LABS: Glucose,Whole Blood 97 mg/dL (75-99)
[2016-07-17 05:35] LABS: Glucose,Whole Blood 67 mg/dL (75-99)
[2016-07-17 05:55] LABS: Glucose,Whole Blood 75 mg/dL (75-99)
[2016-07-17] MEDS: INSULIN LISPRO (humaLOG) 300 UNIT/3 ML VIAL SQ SCH ×3 (06:35→17:08)
[2016-07-17] MEDS: PANTOPRAZOLE 40 MG TABLET PO SCH (06:38)
[2016-07-17 07:01] LABS: Anisocytosis Slight; Basophils % (A) 1 %; CH 27.4; Eosinophils # (A) 0.2 k/uL (0-0.7); Eosinophils % (A) 4 %; HCT 33.6 % (39.0-53.0); HDW 2.51; HGB 10.2 gm/dL (13.0-17.5); Hypochromasia Slight; Luc % (Auto) 2; Lymphocytes # (A) 1.2 k/uL (1.0-4.8); Lymphocytes % (A) 26 %; MCHC 30.5 g/dL (31.0-37.0); MCV 88.6 fL (80.0-100.0); Mean Platelet Volume 7.7; Monocytes # (A) 0.2 k/uL (0-1.0); Monocytes % (A) 4 %; Neutrophils # (A) 2.9 k/uL (1.3-7.7); Neutrophils % (A) 64 %; RDW 19.2 % (11.5-15.5); WBC 4.5 k/uL (3.8-10.6); WBC (Perox) 4.88
[2016-07-17 07:15] LABS: Anion Gap 8 mmol/L; Blood Urea Nitrogen 5 mg/dL (9-20); Calcium 8.3 mg/dL (8.4-10.2); Carbon Dioxide 24 mmol/L (22-30); Chloride 107 mmol/L (98-107); Glucose 84 mg/dL (74-99); Magnesium 1.6 mg/dL (1.6-2.3); Non-African American GFR(MDRD) >60 (>60 ml/min/1.73 sqM); Potassium 4.3 mmol/L (3.5-5.1); Sodium 139 mmol/L (137-145)
[2016-07-17] MEDS: SERTRALINE 50 MG TAB PO SCH (08:24)
[2016-07-17] MEDS: FINASTERIDE 5 MG TAB PO SCH (08:24)
[2016-07-17] MEDS: TAMSULOSIN 0.4 MG CAP.ER.24H PO SCH (08:24)
[2016-07-17] MEDS: MAGNESIUM OXIDE 400 MG TAB PO SCH (08:25)
[2016-07-17] MEDS: metroNIDAZOLE 500 MG TAB PO SCH ×3 (08:25→21:34)
[2016-07-17] MEDS: FUROSEMIDE 40 MG TAB PO SCH (08:25)
[2016-07-17] MEDS: DOXAZOSIN 4 MG TAB PO SCH ×2 (08:25→21:33)
[2016-07-17 11:56] LABS: Glucose,Whole Blood 147 mg/dL (75-99)
[2016-07-17 16:58] LABS: Glucose,Whole Blood 131 mg/dL (75-99)
[2016-07-17] MEDS: cefTRIAXone 2,000 MG in SODIUM CHLORIDE 0.9% 100 ML IVPB SCH (17:07)
[2016-07-17] MEDS: RIVAROXABAN 10 MG TAB PO SCH (17:08)
--- NOTE | 2016-07-17 17:12 | PN ---
DATE OF SERVICE: 07/17/2016 I am covering for Dr. Olguin. This is a 75-year-old gentleman who was admitted for generalized weakness and tiredness, being evaluated for infection and sepsis as well. The cultures are negative so far. The patient also had bigeminy. He had probably PACs. No chest pain or palpitation. No fever. On exam, alert and oriented x3. Pulse 64, blood pressure 113/66, respiration 18, temperature is 96.3, pulse ox 96% on room air. HEENT: Conjunctivae normal. NECK: No jugular venous distension. CARDIOVASCULAR SYSTEM: S1, S2, muffled. RESPIRATORY: Breath sounds diminished at the bases, no rhonchi, no crackles. ABDOMEN: Soft, obese. EXTREMITIES: Legs no edema, nos swelling. NERVOUS SYSTEM: No focal deficits. LABS: WBC is 4.3, hemoglobin is 10. 2, magnesium 1.6. ASSESSMENT: 1. Recurrent fever, rule out sepsis. 2. Pancreatic cancer, metastatic, status post chemotherapy. 3. Diabetes mellitus with hypoglycemia, Lantus dose is being reduced. 4. Severe bradycardia with possibly premature atrial contractions. 5. Anemia, normocytic, possibly anemia of chronic disease. 6. Thrombocytopenia. 7. Hypoalbuminemia with mild to moderate protein calorie malnutrition. 8. History of congestive heart failure. 9. History of diabetes mellitus type 2. 10. History of gastroesophageal reflux disease. 11. History of myocardial infarction. 12. History of degenerative joint disease. 13. History of pneumonia. 14. History of prostate disorder. 15. History of pulmonary embolism history. 16. History of benign prostatic hypertrophy. 17. History of gastroesophageal reflux disease. 18. History of degenerative joint disease. 19. History of bowel resection. 20. History of depression. 21. FULL CODE. RECOMMENDATION: In this 75-year-old gentleman with presented with multiple complex medical issues, will monitor the patient closely. Continue with the current management and symptomatic treatment. Monitor the blood sugars closely. Otherwise, continue with IV antibiotics. Input appreciated. Guarded prognosis. Further recommendations to follow. Dr. Olguin will follow.
--- NOTE | 2016-07-17 19:26 | P.PN ---
Subjective Patient is doing well remains stable. Denies any chest pain dizziness or lightheadedness. Objective - Vital Signs Vital signs: Vital Signs Temp 97 F L 07/17/16 08:00 Pulse 78 07/17/16 16:00 Resp 18 07/17/16 04:00 BP 118/58 07/17/16 17:00 Pulse Ox 97 07/17/16 16:00 Intake & Output 07/17/16 07/17/16 07/18/16 06:59 18:59 06:59 Output Total 350 Balance -350 Weight Output: Urine 350 Other: Voiding Method # Voids 3 - Exam Patient is comfortable in no acute distress. Heart first and second heart sounds are normal. Lungs clinically clear to auscultation and percussion. The monitor strip reviewed occasionally patient has been having episodes of sinus bradycardia and PACs. - Labs CBC & Chem 7: 07/17/16 06:29 07/17/16 06:29 Labs: Abnormal Lab Results - Last 24 Hours (Table) 07/16/16 07/17/16 07/17/16 Range/Units 20:34 05:34 06:29 RBC (4.30-5.90) m/uL Hgb (13.0-17.5) gm/dL Hct (39.0-53.0) % MCHC (31.0-37.0) g/dL RDW (11.5-15.5) % Plt Count (150-450) k/uL BUN 5 L (9-20) mg/dL POC Glucose (mg/dL) 240 H 67 L (75-99) mg/dL Calcium 8.3 L (8.4-10.2) mg/dL 07/17/16 07/17/16 07/17/16 Range/Units 06:29 11:55 16:48 RBC 3.80 L (4.30-5.90) m/uL Hgb 10.2 L (13.0-17.5) gm/dL Hct 33.6 L (39.0-53.0) % MCHC 30.5 L (31.0-37.0) g/dL RDW 19.2 H (11.5-15.5) % Plt Count 146 L (150-450) k/uL BUN (9-20) mg/dL POC Glucose (mg/dL) 147 H 131 H (75-99) mg/dL Calcium (8.4-10.2) mg/dL Microbiology - Last 24 Hours (Table) 07/15/16 15:37 Blood Culture - Preliminary Blood No Growth after 48 hours 07/15/16 04:15 Blood Culture - Preliminary Blood No Growth after 48 hours Assessment and Plan Plan: This patient remains fairly stable from cardiac point of view is having intermittent episodes of sort runs of sinus bradycardia and PACs continue observation.
[2016-07-17] MEDS ORDERED: INSULIN GLARGINE 100 UNIT/ML 10 ML VIAL SQ SCH (21:00)
[2016-07-17 21:07] LABS: Glucose,Whole Blood 199 mg/dL (75-99)
[2016-07-17] MEDS: ATORVASTATIN 10 MG TAB PO SCH (21:33)
[2016-07-18 02:14] LABS: Glucose,Whole Blood 166 mg/dL (75-99)
[2016-07-18 06:25] LABS: Glucose,Whole Blood 112 mg/dL (75-99)
[2016-07-18] MEDS: INSULIN LISPRO (humaLOG) 300 UNIT/3 ML VIAL SQ SCH ×2 (06:32→12:36)
[2016-07-18 06:36] LABS: Anion Gap 7 mmol/L; Blood Urea Nitrogen 7 mg/dL (9-20); Calcium 8.3 mg/dL (8.4-10.2); Carbon Dioxide 26 mmol/L (22-30); Chloride 104 mmol/L (98-107); Glucose 123 mg/dL (74-99); Non-African American GFR(MDRD) >60 (>60 ml/min/1.73 sqM); Potassium 4.1 mmol/L (3.5-5.1); Sodium 137 mmol/L (137-145)
[2016-07-18 06:38] LABS: Anisocytosis Slight; Basophils % (A) 1 %; CH 27.7; CHCM 31.6; Eosinophils # (A) 0.2 k/uL (0-0.7); Eosinophils % (A) 4 %; HCT 34.1 % (39.0-53.0); HDW 2.52; HGB 10.8 gm/dL (13.0-17.5); Hypochromasia Slight; Luc # (Auto) 0.12; Luc % (Auto) 3; Lymphocytes # (A) 1.2 k/uL (1.0-4.8); Lymphocytes % (A) 27 %; MCH 27.8 pg (25.0-35.0); MCHC 31.6 g/dL (31.0-37.0); Mean Platelet Volume 8.3; Monocytes # (A) 0.2 k/uL (0-1.0); Monocytes % (A) 4 %; Neutrophils # (A) 2.8 k/uL (1.3-7.7); Neutrophils % (A) 62 %; RBC 3.88 m/uL (4.30-5.90); RDW 19.2 % (11.5-15.5); WBC 4.5 k/uL (3.8-10.6); WBC (Perox) 4.72
[2016-07-18] MEDS: PANTOPRAZOLE 40 MG TABLET PO SCH (06:44)
[2016-07-18 08:59] VITALS: TEMP 96.6
[2016-07-18] MEDS: TAMSULOSIN 0.4 MG CAP.ER.24H PO SCH (09:07)
[2016-07-18] MEDS: FINASTERIDE 5 MG TAB PO SCH (09:07)
[2016-07-18] MEDS: MAGNESIUM OXIDE 400 MG TAB PO SCH (09:07)
[2016-07-18] MEDS: FUROSEMIDE 40 MG TAB PO SCH (09:07)
[2016-07-18] MEDS: metroNIDAZOLE 500 MG TAB PO SCH (09:07)
[2016-07-18] MEDS: SERTRALINE 50 MG TAB PO SCH (09:07)
[2016-07-18] MEDS: DOXAZOSIN 4 MG TAB PO SCH (09:07)
--- NOTE | 2016-07-18 10:21 | PN ---
DATE OF SERVICE: 07/17/2016 Reason for followup is fever. INTERVAL HISTORY: The patient overall feels better, has been breathing comfortably. No further rigors or any chest pain, shortness of breath with a cough, no abdominal pain or diarrhea. On examination blood pressure is 118/66 with a pulse of 50, temperature of 96.9. General description is an elderly male, lying in bed in no distress. RESPIRATORY SYSTEM: Unlabored breathing. Clear to auscultation anteriorly. HEART: S1, S2. Regular rate and rhythm. ABDOMEN: Soft. No tenderness. LABS: Hemoglobin is 10.8, white count of 4.5, BUN of 5, creatinine 0.65, blood culture has been negative so far. He did have CT of abdomen and pelvis that is done for pain in pancreatic head, had tumor with liver mets. DIAGNOSTIC IMPRESSION AND PLAN: Patient admitted to hospital with right infiltrate, did have a fever. So far, no acute focus of infection. His culture has been negative. Leukocytosis more suggestive of pancreatic cancer with mets to the liver that may be contributing the main contributor. I will review the CT with the radiologist, continue patient also on Flagyl at this point. Continue supportive care. SHERIED
[2016-07-18 11:59] LABS: Glucose,Whole Blood 142 mg/dL (75-99)
[2016-07-18 13:31] VITALS: BP 104/57; PULSE 83; RESP 16
--- NOTE | 2016-07-18 14:58 | P.DS ---
Providers Date of admission: 07/14/16 17:38 Expected date of discharge: 07/18/16 Attending physician: Chito Olguin Consults: 07/15/16 08:21 Consult Physician Urgent Consulting Provider: Frank Huynh Consult Reason/Comments: PANCREATIC CANCER Do you want consulting provider notified?: Yes 07/15/16 08:25 Consult Physician Urgent Consulting Provider: Purnima Kendall Consult Reason/Comments: FEVER Do you want consulting provider notified?: Yes 07/16/16 08:27 Consult Physician Routine Consulting Provider: Fermin Burton Consult Reason/Comments: Bradycardia Do you want consulting provider notified?: Already Contacted Primary care physician: Chito Olguin Hospital Course: Patient is a 75-year-old white male, patient of Dr. Olguin in the outpatient setting, with complex medical history significant for obstructive jaundice with stent placement secondary to pancreatic cancer with metastasis to liver with gastric outlet obstruction status post gastrojejunostomy currently on chemotherapy with last dose 3 days prior to admission. Patient presented to the hospital with complaints of acute tremors and chills without fevers. Patient was found to have evidence of SIRS with features of lactic acidosis with the possibility of sepsis considered, and infectious disease evaluation was sought with thought of infection with an abdominal source. Patient was started on Flagyl. Urine and blood cultures negative. Liver ultrasound was done which showed pancreatic or liver lesions are history of metastasis and small amount of ascites. Abdomen pelvis CAT scan showed large mass in the region of pancreatic head consistent with tumor and with biliary stent with multiple low density liver lesions. Patient was also evaluated by oncology team during hospital stay. During hospital stay, patient had episodes of sinus bradycardia with possibility of blocked premature atrial contractions, patient remained asymptomatic. Echocardiogram with Doppler showed preserved LV function with an EF between 50-55%. No evidence of pulmonary hypertension. Cardiology was consulted and patient was observed. Patient improved during his hospital stay and was deemed stable for discharge to home with close follow-up in the outpatient setting. Discharge diagnoses: 1. SIRS, present on admission, with evidence of fever and lactic acidosis. 2. Diabetes mellitus type 2, uncontrolled, with evidence of hypoglycemia on admission. 3. Severe bradycardia with possible premature atrial contractions. 4. History of pancreatic cancer with metastasis to liver with gastric outlet obstruction status post stent placement and gastrojejunostomy. 5. Colonic diverticulosis. 7. History of GERD. 8. Hyperlipidemia. 10. Hypertension. 11. History of pulmonary embolism status post Reji filter placement. 12. BPH. 13. Anemia of malignancy. 14. History of myocardial infarction. 15. History of recent E. coli bacteremia. 16. Chronic back pain with history of osteoarthritis. 17. History of small bowel obstruction status post bowel resection. 18. History of depression, stable. 19. Gait dysfunction. Patient uses cane or walker. 20. History of nicotine dependence. 21. History of EtOH abuse, quit approximately 3 years ago. The above impression and plan have been discussed and directed by Dr. Olguin. Moo WOLF-Bhaskar acting as scribe for Dr. Olguin. Pertinent Studies: EKG; chest x-ray; venous Doppler study; abdomen/pelvis CT; liver ultrasound; echocardiogram with Doppler Patient Condition at Discharge: Good Plan - Discharge Summary New Discharge Prescriptions: Cefuroxime Axetil [Ceftin] 500 mg PO BID #28 tab Discharge Medication List Doxazosin [Cardura] 2 mg PO BID 04/11/16 [History] Finasteride [Proscar] 5 mg PO DAILY 04/11/16 [History] Omeprazole [PriLOSEC] 40 mg PO DAILY 04/11/16 [History] Rivaroxaban [Xarelto] 20 mg PO DAILY 04/11/16 [History] Sertraline [Zoloft] 50 mg PO DAILY 04/11/16 [History] Simvastatin [Zocor] 20 mg PO HS 04/11/16 [History] Tamsulosin HCl [Flomax] 0.4 mg PO DAILY 04/11/16 [History] Magnesium Oxide [Mag-Ox] 400 mg PO DAILY 05/26/16 [History] Furosemide [Lasix] 40 mg PO DAILY 07/14/16 [History] Cefuroxime Axetil [Ceftin] 500 mg PO BID #28 tab 07/18/16 [Rx] Insulin Glargine,Hum.rec.anlog [Lantus Solostar] 30 unit SQ HS #0 07/18/16 [Rx] Follow up Appointment(s)/Referral(s): Chito Olguin DO [Primary Care Provider] - 1-2 days Coy Siu MD [STAFF PHYSICIAN] - 07/27/16 3:30 pm Purnima Kendall MD [STAFF PHYSICIAN] - 1 Week [facility] [Provider Group] - 1 Week Discharge Disposition: HOME SELF-CARE
--- NOTE | 2016-07-18 16:02 | PN ---
DATE OF SERVICE: 07/18/2016 REASON FOR FOLLOWUP: Fever with a question of possible ascending cholangitis. INTERVAL HISTORY: The patient is afebrile. He has been breathing comfortably. He denies significant chest pain or shortness of breath or cough. No abdominal pain or any diarrhea. On examination, blood pressure is 118/70 with a pulse of 80, temperature 96.6. He is 96% on room air. General description is an elderly male lying in bed in no distress. RESPIRATORY SYSTEM: Unlabored breathing. Clear to auscultation anteriorly. HEART: S1, S2. Regular rate and rhythm. ABDOMEN: Soft. No tenderness. LABS: Hemoglobin is 10.8, white count 4.5, BUN of 7, creatinine 0.80. DIAGNOSTIC IMPRESSION AND PLAN: Patient with a fever with rigors and concern about possible bacteremia in a patient who did have a pancreatic head tumor with multiple metastases to the liver with a question of possible cholangitis. As the patient appears to be responding to the Rocephin, plan to finish therapy with p.o. Ceftin 500 mg twice a day for 2 weeks with close outpatient followup. Plan of care discussed with the nurse practitioner for the primary team and patient's questions were answered.
== END 2016-07-18 16:31 | disposition home or self-care (01) | DRG 872 ==
LOC: EC 16:22 → 6ICU 17:38 → 6SEL 07-16 19:30
PROVIDERS: ADMIT Family Medicine; ATTEND Family Medicine
DX: A41.9 Sepsis, unspecified organism (principal); E44.0 Moderate protein-calorie malnutrition; E87.2 Acidosis; C78.7 Secondary malignant neoplasm of liver and intrahepatic bile duct; I11.0 Hypertensive heart disease with heart failure; C25.0 Malignant neoplasm of head of pancreas; I50.9 Heart failure, unspecified; R18.8 Other ascites; D69.6 Thrombocytopenia, unspecified; E11.649 Type 2 diabetes mellitus with hypoglycemia without coma; E11.65 Type 2 diabetes mellitus with hyperglycemia; E86.0 Dehydration; D63.0 Anemia in neoplastic disease; R00.1 Bradycardia, unspecified; E66.9 Obesity, unspecified; M47.819 Spondylosis without myelopathy or radiculopathy, site unspecified; I49.1 Atrial premature depolarization; E88.09 Other disorders of plasma-protein metabolism, not elsewhere classified; R00.8 Other abnormalities of heart beat; E87.8 Other disorders of electrolyte and fluid balance, not elsewhere classified; R11.2 Nausea with vomiting, unspecified; R53.1 Weakness; E78.5 Hyperlipidemia, unspecified; I25.2 Old myocardial infarction; G89.29 Other chronic pain; K21.9 Gastro-esophageal reflux disease without esophagitis; K57.30 Diverticulosis of large intestine without perforation or abscess without bleeding; N40.0 Benign prostatic hyperplasia without lower urinary tract symptoms; F32.9 Major depressive disorder, single episode, unspecified; R26.9 Unspecified abnormalities of gait and mobility; R74.8 Abnormal levels of other serum enzymes; M79.89 Other specified soft tissue disorders; Z86.69 Personal history of other diseases of the nervous system and sense organs; Z79.2 Long term (current) use of antibiotics; Z68.27 Body mass index [BMI] 27.0-27.9, adult; Z86.711 Personal history of pulmonary embolism; Z92.21 Personal history of antineoplastic chemotherapy; Z87.891 Personal history of nicotine dependence; Z80.0 Family history of malignant neoplasm of digestive organs; Z79.01 Long term (current) use of anticoagulants; Z96.641 Presence of right artificial hip joint; Z87.01 Personal history of pneumonia (recurrent); Z86.718 Personal history of other venous thrombosis and embolism; Z79.899 Other long term (current) drug therapy; Z88.0 Allergy status to penicillin; Z86.19 Personal history of other infectious and parasitic diseases; Z87.09 Personal history of other diseases of the respiratory system; Z95.828 Presence of other vascular implants and grafts; Z90.49 Acquired absence of other specified parts of digestive tract; Z79.4 Long term (current) use of insulin; Z87.19 Personal history of other diseases of the digestive system; Z96.89 Presence of other specified functional implants
CPT/HCPCS: 36415; 71020; 74177; 76705; 80048; 80053; 81003; 82533; 82550; 82553; 83036; 83605; 83735; 84100; 84443; 84484; 85025; 85027; 85610; 85730; 86301; 87040; 87502; 93005; 93306; 96361; 96374; 96375; 99291

== ENCOUNTER 2016-08-07 09:09 | Inpatient (IN) | payer MEDICARE, BC ==
[2016-08-07] MEDS ORDERED: SODIUM CHLORIDE 0.9% 1,000 ML IV STA (09:55)
[2016-08-07] MEDS ORDERED: ONDANSETRON 4 MG/2 ML VIAL IVP STA (09:55)
[2016-08-07] MEDS ORDERED: cefTRIAXone 2,000 MG in SODIUM CHLORIDE 0.9% 100 ML IVPB STA (09:57)
[2016-08-07 10:11] LABS: Anisocytosis Slight; Basophils # (A) 0.1 k/uL (0-0.2); Basophils % (A) 1 %; CH 27.8; CHCM 30.4; Eosinophils # (A) 0.3 k/uL (0-0.7); Eosinophils % (A) 2 %; HCT 40.4 % (39.0-53.0); HDW 2.58; HGB 12.5 gm/dL (13.0-17.5); Hypochromasia Moderate; Luc # (Auto) 0.21; Luc % (Auto) 2; Lymphocytes # (A) 4.2 k/uL (1.0-4.8); Lymphocytes % (A) 34 %; MCH 28.4 pg (25.0-35.0); MCHC 30.9 g/dL (31.0-37.0); MCV 91.9 fL (80.0-100.0); Mean Platelet Volume 8.5; Monocytes # (A) 0.4 k/uL (0-1.0); Monocytes % (A) 3 %; Neutrophils # (A) 7.3 k/uL (1.3-7.7); Neutrophils % (A) 59 %; RBC 4.39 m/uL (4.30-5.90); RDW 18.3 % (11.5-15.5); WBC 12.5 k/uL (3.8-10.6); WBC (Perox) 13.51
--- NOTE | 2016-08-07 10:27 | XR ---
EXAMINATION TYPE: XR chest 2V DATE OF EXAM: 08/07/2016 10:22 AM HISTORY: Weakness. REFERENCE: Previous study dated 07/14/2016. FINDINGS: There is a Port-A-Cath in place via a left subclavian approach. Its tip is in superior vena cava. The lungs are clear. Pleural spaces are clear. Heart size is within normal limits. IMPRESSION: NO ACTIVE INTRATHORACIC DISEASE.
[2016-08-07 10:29] LABS: ALT 22 U/L (21-72); AST 39 U/L (17-59); Alkaline Phosphatase 362 U/L (38-126); Anion Gap 18 mmol/L; Blood Urea Nitrogen 12 mg/dL (9-20); Calcium 9.1 mg/dL (8.4-10.2); Carbon Dioxide 17 mmol/L (22-30); Chloride 104 mmol/L (98-107); Glucose 147 mg/dL (74-99); Non-African American GFR(MDRD) >60 (>60 ml/min/1.73 sqM); Potassium 3.7 mmol/L (3.5-5.1); Sodium 139 mmol/L (137-145); Total Protein 7.1 g/dL (6.3-8.2)
[2016-08-07 10:31] LABS: INR 1.2 (<1.1); Partial Thromboplastin Time 23.1 sec (22.0-30.0)
--- NOTE | 2016-08-07 10:31 | ED ---
Weakness HPI - General Chief complaint: Weakness Stated complaint: weakness Time Seen by Provider: 08/07/16 09:23 Source: EMS Mode of arrival: EMS Limitations: no limitations - History of Present Illness Initial comments: 75 years old male lives at home presents to the ER with the generalized weakness , he has a history of CA pancreas Dr. Siu has been looking after him and his chemo was discontinued. Few days ago and is also seen Dr. Kendall for Osei' s this patient's and I suspect there was some infectious component be been feeling weak for the last 2 days and hasn't had any food to eat and he didn't take his medications as well. Take his insulin this morning is complaining about mild headache no chest pain or shortness of breath no neck stiffness no abdominal pain the weakness is generalized complaining about the right leg right leg is swollen - Related Data Home Medications Medication Instructions Recorded Confirmed Doxazosin [Cardura] 4 mg PO BID 04/11/16 08/07/16 Finasteride [Proscar] 5 mg PO DAILY 04/11/16 08/07/16 Rivaroxaban [Xarelto] 20 mg PO DAILY 04/11/16 08/07/16 Sertraline [Zoloft] 50 mg PO DAILY 04/11/16 08/07/16 Simvastatin [Zocor] 20 mg PO HS 04/11/16 08/07/16 Tamsulosin HCl [Flomax] 0.4 mg PO DAILY 04/11/16 08/07/16 Magnesium Oxide [Mag-Ox] 400 mg PO DAILY 05/26/16 08/07/16 Capecitabine [Xeloda] 1,000 mg PO BID 08/07/16 08/07/16 Insulin Glargine,Hum.rec.anlog 64 unit SQ HS 08/07/16 08/07/16 [Lantus Solostar] Omeprazole 20 mg PO DAILY 08/07/16 08/07/16 metFORMIN HCL 1,000 mg PO BID 08/07/16 08/07/16 Allergies Allergy/AdvReac Type Severity Reaction Status Date / Time Penicillins Allergy Itching Verified 08/07/16 11:57 Review of Systems ROS Statement: Those systems with pertinent positive or pertinent negative responses have been documented in the HPI. ROS Other: All systems not noted in ROS Statement are negative. Past Medical History Past Medical History: Cancer, Heart Failure, Diabetes Mellitus, GERD/Reflux, Myocardial Infarction (GA), Osteoarthritis (OA), Pneumonia, Prostate Disorder, Pulmonary Embolus (PE) Additional Past Medical History / Comment(s): Pt admitted 04/11/16 with gram negative bacteremia, left lower pneumonia. Other medical hx: sepsis, pancreatic CA with past IV chemo and now oral chemo, gastric outlet obstruction , PE november 2013, GA 2001, bilateral tinnitis, severe GERD, BPH, arthritis lower back with chronic back pain, . Last Myocardial Infarction Date:: 2001 History of Any Multi-Drug Resistant Organisms: None Reported Past Surgical History: Back Surgery, Bowel Resection, Joint Replacement Additional Past Surgical History / Comment(s): ivet filter placed november 2013;, EGD wtih biliary stenting, 07/2014 ERCP which showed previous biliary stent migration-pt had stent replaced and dilatation, colonoscopy, L subclavian mediport, R total hip replacement. "GOO" stent placedment from stomach to intestines, 04/2016 gastric bypass was done at [facility]. Past Anesthesia/Blood Transfusion Reactions: No Reported Reaction Additional Past Anesthesia/Blood Transfusion Reaction / Comment(s): Pt has never recieved blood. Past Psychological History: Depression Additional Psychological History / Comment(s): Pt states after previous admission and discharge he went to rehab for 6 weeks for strengthening. He is now back home where he lives alone. He is independent. He performs his own ADLs. He uses a walker or cane to ambulate. He drives a car. Patient uses [facility] nurse and home physical therapy-[facility]. Smoking Status: Former smoker Past Alcohol Use History: None Reported Additional Past Alcohol Use History / Comment(s): Pt states he started smoking at age 11 (1954) and quit smoking in 1983. He states he was a 2ppd smoker. Pt states he was a past heavy drinker but has not drank in 2-3 yrs. Past Drug Use History: None Reported - Past Family History Father Family Medical History: Cancer Additional Family Medical History / Comment(s): Father at age 53 yrs of pancreatic cancer. Mother Family Medical History: No Reported History Additional Family Medical History / Comment(s): Mother lived to be 92 yrs old with no health problems known. General Exam - General Exam Comments Initial Comments: General: The patient is awake and alert, does look weak and pale Skin: Skin is warm and dry and no rashes or lesions are noted. Eye: Pupils are equal, round and reactive to light, extra-ocular movements are intact; there is normal conjunctiva bilaterally. Ears, nose, mouth and throat: There are moist mucous membranes and no oral lesions. Neck: The neck is supple, there is no tenderness Cardiovascular: There is a regular rate and rhythm. No murmur, rub or gallop is appreciated. Respiratory: To auscultation bilateral, crackles at the bases Gastrointestinal: Soft, non-distended, non-tender abdomen without masses or organomegaly noted. There is no rebound or guarding present. Bowel sounds are unremarkable. Back: There is no tenderness to palpation in the midline. There is no obvious deformity. Musculoskeletal: Normal ROM, no tenderness, right leg is tender at the mid calf and right thigh is better comparing to the left flank Neurological: CN II-XII intact, Cranial nerves III through XII are intact. There are no obvious motor or sensory deficits. Coordination appears grossly intact. Speech is normal. Psychiatric: Cooperative, appropriate mood & affect, normal judgment. Limitations: no limitations Course Vital Signs 08/07/16 08/07/16 08/07/16 09:12 09:47 09:49 Temperature 96.7 F L Pulse Rate 64 106 H Respiratory 14 22 Rate Blood Pressure 127/70 118/83 O2 Sat by Pulse 92 L 95 Oximetry 08/07/16 08/07/16 08/07/16 10:31 12:12 13:19 Temperature Pulse Rate 107 H 90 90 Respiratory 22 16 18 Rate Blood Pressure 118/70 138/69 151/91 O2 Sat by Pulse 97 97 99 Oximetry 08/07/16 08/07/16 14:38 16:32 Temperature 98 F Pulse Rate 93 99 Respiratory 16 16 Rate Blood Pressure 136/72 146/91 O2 Sat by Pulse 98 100 Oximetry I discussed that with the hospitalist Dr. Mueller considering his DVT "a Dr. Rivero since been on xaretlo for the last 2 years as far as pneumonia is concerned will put him on some Rocephin and Zithromax and should considering gum I he has ongoing infectious process ongoing will consult Dr. Kendall EKG Findings - EKG Comments: EKG Findings:: EKG is a sinus tachycardia ventricular rate of 109 PA interval is 150 QRS duration is 122 QT/QTc is a 46/546 review of this EKG does not reveal any STEMI noticed some right bundle branch block and a premature atrial complexes Medical Decision Making - Lab Data Result diagrams: 08/07/16 09:15 08/07/16 09:15 Lab Results 08/07/16 08/07/16 08/07/16 Range/Units 09:15 09:15 09:15 WBC 12.5 H (3.8-10.6) k/uL RBC 4.39 (4.30-5.90) m/uL Hgb 12.5 L (13.0-17.5) gm/dL Hct 40.4 (39.0-53.0) % MCV 91.9 (80.0-100.0) fL MCH 28.4 (25.0-35.0) pg MCHC 30.9 L (31.0-37.0) g/dL RDW 18.3 H (11.5-15.5) % Plt Count 249 (150-450) k/uL Neutrophils % 59 % Lymphocytes % 34 % Monocytes % 3 % Eosinophils % 2 % Basophils % 1 % Neutrophils # 7.3 (1.3-7.7) k/uL Lymphocytes # 4.2 (1.0-4.8) k/uL Monocytes # 0.4 (0-1.0) k/uL Eosinophils # 0.3 (0-0.7) k/uL Basophils # 0.1 (0-0.2) k/uL Hypochromasia Moderate Anisocytosis Slight PT (9.0-12.0) sec INR (<1.1) APTT (22.0-30.0) sec D-Dimer (<0.60) mg/L FEU Sodium 139 (137-145) mmol/L Potassium 3.7 (3.5-5.1) mmol/L Chloride 104 (98-107) mmol/L Carbon Dioxide 17 L (22-30) mmol/L Anion Gap 18 mmol/L BUN 12 (9-20) mg/dL Creatinine 0.93 (0.66-1.25) mg/dL Est GFR (MDRD) Af Amer >60 (>60 ml/min/1.73 sqM) Est GFR (MDRD) Non-Af >60 (>60 ml/min/1.73 sqM) Glucose 147 H (74-99) mg/dL Plasma Lactic Acid Terry (0.7-2.0) mmol/L Calcium 9.1 (8.4-10.2) mg/dL Total Bilirubin 1.0 (0.2-1.3) mg/dL AST 39 (17-59) U/L ALT 22 (21-72) U/L Alkaline Phosphatase 362 H (38-126) U/L Total Creatine Kinase 33 L (55-170) U/L CK-MB (CK-2) 0.9 (0.0-2.4) ng/mL CK-MB (CK-2) Rel Index 2.7 Troponin I <0.012 (0.000-0.034) ng/mL NT-Pro-B Natriuret Pep pg/mL Total Protein 7.1 (6.3-8.2) g/dL Albumin 3.4 L (3.5-5.0) g/dL Urine Color Urine Appearance (Clear) Urine pH (5.0-8.0) Ur Specific [place] (1.001-1.035) Urine Protein (Negative) Urine Glucose (UA) (Negative) Urine Ketones (Negative) Urine Blood (Negative) Urine Nitrite (Negative) Urine Bilirubin (Negative) Urine Urobilinogen (<2.0) mg/dL Ur Leukocyte Esterase (Negative) Urine RBC (0-5) /hpf Urine WBC (0-5) /hpf Urine WBC Clumps (None) /hpf Ur Squamous Epith Cells (0-4) /hpf Urine Bacteria (None) /hpf Hyaline Casts (0-2) /lpf Urine Mucus (None) /hpf Urine Yeast (Budding) (None) /hpf 08/07/16 08/07/16 08/07/16 Range/Units 09:15 09:15 09:15 WBC (3.8-10.6) k/uL RBC (4.30-5.90) m/uL Hgb (13.0-17.5) gm/dL Hct (39.0-53.0) % MCV (80.0-100.0) fL MCH (25.0-35.0) pg MCHC (31.0-37.0) g/dL RDW (11.5-15.5) % Plt Count (150-450) k/uL Neutrophils % % Lymphocytes % % Monocytes % % Eosinophils % % Basophils % % Neutrophils # (1.3-7.7) k/uL Lymphocytes # (1.0-4.8) k/uL Monocytes # (0-1.0) k/uL Eosinophils # (0-0.7) k/uL Basophils # (0-0.2) k/uL Hypochromasia Anisocytosis PT 12.0 (9.0-12.0) sec INR 1.2 (<1.1) APTT 23.1 (22.0-30.0) sec D-Dimer >32.50 H (<0.60) mg/L FEU Sodium (137-145) mmol/L Potassium (3.5-5.1) mmol/L Chloride (98-107) mmol/L Carbon Dioxide (22-30) mmol/L Anion Gap mmol/L BUN (9-20) mg/dL Creatinine (0.66-1.25) mg/dL Est GFR (MDRD) Af Amer (>60 ml/min/1.73 sqM) Est GFR (MDRD) Non-Af (>60 ml/min/1.73 sqM) Glucose (74-99) mg/dL Plasma Lactic Acid Terry 7.9 H* (0.7-2.0) mmol/L Calcium (8.4-10.2) mg/dL Total Bilirubin (0.2-1.3) mg/dL AST (17-59) U/L ALT (21-72) U/L Alkaline Phosphatase (38-126) U/L Total Creatine Kinase (55-170) U/L CK-MB (CK-2) (0.0-2.4) ng/mL CK-MB (CK-2) Rel Index Troponin I (0.000-0.034) ng/mL NT-Pro-B Natriuret Pep 404 pg/mL Total Protein (6.3-8.2) g/dL Albumin (3.5-5.0) g/dL Urine Color Urine Appearance (Clear) Urine pH (5.0-8.0) Ur Specific [place] (1.001-1.035) Urine Protein (Negative) Urine Glucose (UA) (Negative) Urine Ketones (Negative) Urine Blood (Negative) Urine Nitrite (Negative) Urine Bilirubin (Negative) Urine Urobilinogen (<2.0) mg/dL Ur Leukocyte Esterase (Negative) Urine RBC (0-5) /hpf Urine WBC (0-5) /hpf Urine WBC Clumps (None) /hpf Ur Squamous Epith Cells (0-4) /hpf Urine Bacteria (None) /hpf Hyaline Casts (0-2) /lpf Urine Mucus (None) /hpf Urine Yeast (Budding) (None) /hpf 08/07/16 08/07/16 Range/Units 12:53 13:22 WBC (3.8-10.6) k/uL RBC (4.30-5.90) m/uL Hgb (13.0-17.5) gm/dL Hct (39.0-53.0) % MCV (80.0-100.0) fL MCH (25.0-35.0) pg MCHC (31.0-37.0) g/dL RDW (11.5-15.5) % Plt Count (150-450) k/uL Neutrophils % % Lymphocytes % % Monocytes % % Eosinophils % % Basophils % % Neutrophils # (1.3-7.7) k/uL Lymphocytes # (1.0-4.8) k/uL Monocytes # (0-1.0) k/uL Eosinophils # (0-0.7) k/uL Basophils # (0-0.2) k/uL Hypochromasia Anisocytosis PT (9.0-12.0) sec INR (<1.1) APTT (22.0-30.0) sec D-Dimer (<0.60) mg/L FEU Sodium (137-145) mmol/L Potassium (3.5-5.1) mmol/L Chloride (98-107) mmol/L Carbon Dioxide (22-30) mmol/L Anion Gap mmol/L BUN (9-20) mg/dL Creatinine (0.66-1.25) mg/dL Est GFR (MDRD) Af Amer (>60 ml/min/1.73 sqM) Est GFR (MDRD) Non-Af (>60 ml/min/1.73 sqM) Glucose (74-99) mg/dL Plasma Lactic Acid Terry 2.4 H* (0.7-2.0) mmol/L Calcium (8.4-10.2) mg/dL Total Bilirubin (0.2-1.3) mg/dL AST (17-59) U/L ALT (21-72) U/L Alkaline Phosphatase (38-126) U/L Total Creatine Kinase (55-170) U/L CK-MB (CK-2) (0.0-2.4) ng/mL CK-MB (CK-2) Rel Index Troponin I (0.000-0.034) ng/mL NT-Pro-B Natriuret Pep pg/mL Total Protein (6.3-8.2) g/dL Albumin (3.5-5.0) g/dL Urine Color Yellow Urine Appearance Cloudy (Clear) Urine pH 5.5 (5.0-8.0) Ur Specific [place] 1.024 (1.001-1.035) Urine Protein 1+ H (Negative) Urine Glucose (UA) Negative (Negative) Urine Ketones Negative (Negative) Urine Blood Small H (Negative) Urine Nitrite Negative (Negative) Urine Bilirubin Negative (Negative) Urine Urobilinogen <2.0 (<2.0) mg/dL Ur Leukocyte Esterase Negative (Negative) Urine RBC 36 H (0-5) /hpf Urine WBC 8 H (0-5) /hpf Urine WBC Clumps Few H (None) /hpf Ur Squamous Epith Cells 1 (0-4) /hpf Urine Bacteria Rare H (None) /hpf Hyaline Casts 11 H (0-2) /lpf Urine Mucus Many H (None) /hpf Urine Yeast (Budding) Occasional H (None) /hpf Disposition Clinical Impression: DVT (deep venous thrombosis), Thoracic aneurysm without mention of rupture, Pneumonia, Pulmonary nodule Disposition: ADMITTED IP TO THIS [facility] Condition: Fair Referrals: Chito Olguin DO [Primary Care Provider] - 1-2 days
[2016-08-07] MEDS ORDERED: SODIUM CHLORIDE 0.9% 1,000 ML IV ONE (10:35)
[2016-08-07 10:37] LABS: Creatine Kinase 33 U/L (55-170)
[2016-08-07] MEDS ORDERED: RX INFO: IV CONTRAST WAS GIVEN 1 EACH MISC MISCELLANE PRN (10:37)
[2016-08-07 10:50] LABS: Creatine Kinase MB 0.9 ng/mL (0.0-2.4); Troponin I <0.012 ng/mL (0.000-0.034)
--- NOTE | 2016-08-07 11:25 | CT ---
EXAMINATION TYPE: CT angio chest DATE OF EXAM: 08/07/2016 11:10 AM COMPARISON: NONE HISTORY: r/o PE, elevated d-dimer, c/o sob and weakness CT DLP: 313.2 mGycm Automated exposure control for dose reduction was used. CONTRAST: CTA scan of the thorax is performed with IV Contrast, patient injected with 66cc mL of Omnipaque 350, pulmonary embolism protocol. . FINDINGS: There is an elongated spiculated 2.2 x 1 x 1.3 cm mass in the right middle lobe. There is a tree-in-bud appearance in the superior segment of the left lower lobe. Multiple small pulmonary nodu les are present in this segment. The largest measures 6.1 mm. There is a small left effusion. There is no significant axillary, mediastinal or hilar adenopathy. There is no evidence of pulmonary embolus. The aortic root is mildly prominent measuring 3.9 cm. At the level of the proximal arch, the aorta is aneurysmal measuring 3.3 cm. The proximal descending thoracic aorta measures 3.1 cm. At the level of the aortic hiatus, the aorta measures 3.2 cm. The heart is not enlarged. There is no pericardial fluid. Within the abdomen, there is ascites. There is a biliary stent in place. There is air within the bili ramon tree. Other visualized abdominal structures are unremarkable. There is hypertrophic spondylosis within the spine. IMPRESSION: 1. THIS EXAMINATION IS NEGATIVE FOR PULMONARY EMBOLUS. 2. THORACIC AORTIC ANEURYSM. 3. MULTIPLE PULMONARY NODULES. I CANNOT EXCLUDE SOME EARLY PNEUMONIA IN THE SUPERIOR SEGMENT OF THE L EFT LOWER LOBE. 4. SMALL LEFT EFFUSION. 5. ASCITES. 6. DEGENERATIVE CHANGES WITHIN THE SPINE.
--- NOTE | 2016-08-07 12:04 | US ---
EXAMINATION TYPE: US venous doppler duplex LE RT DATE OF EXAM: 08/07/2016 11:57 AM COMPARISON: NONE CLINICAL HISTORY: Pain. Patient has history of PE , has a ivet filter and is on Xeralto SIDE PERFORMED: Right VESSELS IMAGED: External Iliac Vein (EIV) Common Femoral Vein Deep Femoral Vein Greater Saphenous Vein * Femoral Vein Popliteal Vein Proximal Calf Veins (* superficial vessels) No popliteal fossa lesion is seen. Right Leg: Positive for DVT, pop mid through calf veins demonstrate internal echoes, no flow and is non compressible. There is a patent posterior distal pop vein IMPRESSION: THIS EXAMINATION IS POSITIVE FOR DVT EXTENDING FROM THE MID POPLITEAL VEIN THROUGH THE CALF VEINS.
[2016-08-07 13:14] LABS: Appearance,Urine Cloudy (Clear); Bacteria,Urine Rare /hpf; Bilirubin,Urine Negative (Negative); Glucose,Urine (UA) Negative (Negative); Ketones,Urine Negative (Negative); Leukocyte Esterase,Urine Negative (Negative); Mucus,Urine Many /hpf; Nitrite,Urine Negative (Negative); PH, Urine 5.5 (5.0-8.0); Particle Count 12903; Protein,Urine 1+ (Negative); RBC,Urine 36 /hpf (0-5); Specific Gravity,Urine 1.024 (1.001-1.035); Squamous Epithelial Cell,Urine 1 /hpf (0-4); UA Billing (MACRO vs. MICRO) MICRO; Urobilinogen,Urine <2.0 mg/dL (<2.0); WBC,Urine 8 /hpf (0-5)
[2016-08-07] MEDS ORDERED: IPRATROPIUM-ALBUTEROL 3 ML NEB INHALATION PRN (16:41)
[2016-08-07] MEDS ORDERED: PNEUMONIA PROTOCOL UTILIZED 1 EACH MISC PO PRN (16:41)
[2016-08-07] MEDS: SODIUM CHLORIDE 0.9% 1,000 ML IV SCH (18:40)
[2016-08-07] MEDS: ATORVASTATIN 10 MG TAB PO SCH (19:59)
[2016-08-07] MEDS: DOXAZOSIN 4 MG TAB PO SCH (19:59)
[2016-08-07 20:00] LABS: Glucose,Whole Blood 118 mg/dL (75-99)
[2016-08-07] MEDS: metFORMIN 500 MG TAB PO SCH (20:11)
[2016-08-07] MEDS ORDERED: INSULIN GLARGINE 100 UNIT/ML 10 ML VIAL SQ SCH (21:00)
[2016-08-07] MEDS ORDERED: ENOXAPARIN 100 MG/ML SYRINGE SQ STA (22:13)
--- NOTE | 2016-08-07 22:21 | CONS ---
DATE OF CONSULTATION: 08/07/2016. REASON FOR CONSULTATION: Pneumonia. HISTORY OF PRESENT ILLNESS: Patient is a 75-year-old male well known to my service from previous admission to this facility has been treated previously for Klebsiella bacteremia thought to be source followed by episodes of fever. However, no bacteremia was noticed in both episodes. Recently admitted to [facility]. The patient was treated for rigors and chills with concern for possible biliary sepsis or cholangitis for which the patient has finished antibiotic therapy. Patient said that he was having problems with his right lower extremity swelling that has been going on for a while now and has been treated with Lasix. There was some improvement with swelling but swelling came back right away. For the last 2 days, the patient has been feeling very weak, lethargic, unable to get up and walking around and has a no appetite. The patient continues to feel very weak and tired and no energy. With these symptoms, the patient presented to the [facility] ER and the patient has been evaluated by the ER physician. The patient did have a lower extremity Doppler that was positive for DVT on the right leg. He also had a CT angiogram which did show multiple pulmonary nodules and raises the possibility of left-sided pneumonia. The patient was started on Rocephin and Levaquin and I was asked to see the patient for further recommendation regarding antibiotic therapy. Patient has been complaining of shortness of breath with very minimal exertion. He did have a mild cough but not bringing up any sputum. Patient denies any URI symptoms. Denies having any fever or chills. Denies any abdominal pain, and no diarrhea. No burning or frequency of urine. REVIEW OF SYSTEMS: Positive for weakness. CONSTITUTIONAL: Positive for weakness and rigors since yesterday but no fever has been recorded. EYES: No complaint. ENT: No complaint. RESPIRATORY: As per HPI. CARDIOVASCULAR: As per HPI. GENITOURINARY: No complaint. GASTROINTESTINAL: No complaint. MUSCULOSKELETAL: No complaint. INTEGUMENTARY: No complaint. PSYCHOLOGICAL: No complaint. ENDOCRINE: No complaint. NEUROLOGIC: No complaint. Past medical history significant for diabetes mellitus, gastroesophageal reflux disease, DVT, PE benign prostatic hypertrophy, Escherichia coli bacteremia, pancreatic cancer, gastric outlet obstruction and gastroesophageal reflux disease. PAST SURGICAL HISTORY: Bowel resection, joint replacement and back surgery and biliary stent placement. SOCIAL HISTORY: Remote history of smoking. No drinking or drug use. FAMILY HISTORY: Father with history of pancreatic cancer. Mother of old age at 92. ALLERGIES: PENICILLIN, however, he has taken cephalosporin without any problem. Medications currently include the patient is on: 1. DuoNeb. 2. Lipitor. 3. Rocephin. 4. Cardura. 5. Proscar. 6. Lantus. 7. Levofloxacin. 8. Mag oxide. 9. Glucophage. 10. Protonix. 11. Xarelto. 12. Zoloft. 13. Flomax. On examination, blood pressure is 159/82 with a pulse of 100, temperature 98.6. He is 98% on 2 liters nasal cannula elderly male, lying in bed in no distress. No tachypnea or accessory muscle of respiration use. HEENT examination shows slight pallor. There is no scleral icterus. Oral mucous membrane is dry. NECK: Trachea central. There is no thyromegaly. LUNGS: Unlabored breathing. Clear to auscultation anteriorly with some decreased breath sounds at the base. HEART: S1, S2. Regular rate and rhythm. ABDOMEN: Soft, no tenderness. Right leg with 2+ edema of feet. SKIN EXAMINATION: No rash or mass palpable. NEUROLOGICAL: The patient is awake, alert, oriented x3. Mood and affect normal. LABS: Hemoglobin is 12.5, white count 10.5 as well with a BUN of 12, creatinine 0.9, lactic acid elevated at 7.9, it was down to 2.4 , the urine significantly positive. Doppler and chest x-ray, CT of the chest as reported mentioned above. DIAGNOSTIC IMPRESSION AND PLAN: Patient presented to hospital with weakness and rigors and chills, shortness of breath, and did have a cough in a patient who did have lower extremity swelling, especially the right leg diagnosed with acute deep venous thrombosis. He also had a CT angiogram that was negative for pulmonary embolism however, did show multiple pulmonary nodules in addition to left-sided pneumonia. The patient did have some rigors and some shortness of breath, very mild cough not bringing up any sputum. He did have elevated lactic acid and underlying component of pneumonia cannot entirely excluded, likely community-acquired. PLAN: 1. We will obtain sputum for Gram stain culture and sensitivity. 2. Continue the patient on Rocephin 1 gram daily with oral Levaquin. 3. Metformin should be put on hold as the patient just received CT with contrast. 4. Will follow up on the clinical condition and cultures to further adjust the medication if needed. Thank you for this consultation. Will follow this patient along with you. FRANCES
[2016-08-07] MEDS: ENOXAPARIN 100 MG/ML SYRINGE SQ SCH (22:31)
--- NOTE | 2016-08-07 22:40 | P.GSCN ---
History of Present Illness Consult date: 08/07/16 Reason for Consult: right popliteal DVT History of present illness: impression; 1. subacute right popliteal DVT and duplex evidence of right iliac DVT; no evidence of phlegmasia at this time 2. history of PE in 2013 with [facility] IVC filter placement; patient has been maintaned on rivaroxaban since then 3. severe nausea and vomiting; patient is unable to take oral meds x 3 days including rivaroxaban 4. 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 enoxaperin 1mg/kg sq BID first dose now 2. migdalia hose to both legs; elevate right leg 3. no surgical intervention at this time HPI; Unfortunate 75 y/o man, history of inoperable pancreatic adenocarcinoma ( pancreatic head) treated with biliary stent and chemotherapy; patient has had multiple admissions for biliary sepsis, pneumonia. Underwent palliative gastric bypass for gastric outlet obstruction 04/2016. Complains of nausea and vomiting x last 3 days; unable to take any of his oral medications including rivaroxaban. States that he has right leg edema for the past month; had this in the remote past but resolved. Underwent IVC filter placement in 2013 after PE from lower extremity DVT but does not recall which leg. Has been on rivaroxaban since PE. CMHx, PSHX, Habits; reviewed as below PE: chronically ill appearing and cachexic male in NAD; 159/82, 100, 18, O2 sat on 2 l = 98% HEENT; no bruits, no JVD Lungs; clear bilaterally Heart; RRR, normal S1 and S2 ABD; soft, non-tender, healing upper midline incision, no hernias, no pulsatile organomegaly EXTR; femoral, popliteal, dorsalis pedis and posterior tibial pulses are palpable bilaterally; edema of the right leg extends from in the inguinal ligament to the foot with significant amount below the knee; no evidence of phlegmasia at this time Venous duplex of the right leg reviewed by me demonstrates non-phasic, flat waveform in the right common femoral vein suggesting proximal obstructive disease (iliac thrombosis or compression), there is subacute right popliteal venous thrombosis noted in the midpopliteal vein; the tibial veins appear patent. CTA of the abdomen from 07/2016 demonstrates appropriately placed IVC filter with no evidence of compression of the right iliac vein; the right common femoral vein is not well visualized secondary to right hip prosthesis impression/plan as noted above would keep patient on enoxaparin indefinitely; has had significant problems in the very recent past with nausea and vomiting and inability to take po meds/food continue supportive care no vascular surgery intervention at this point; consider 20-30mmHG knee high compression hose for relief of edema if patient tolerates Past Medical History Past Medical History: Cancer, Heart Failure, Diabetes Mellitus, GERD/Reflux, Myocardial Infarction ([place]), Osteoarthritis (OA), Pneumonia, Prostate Disorder, Pulmonary Embolus (PE) Additional Past Medical History / Comment(s): Pt admitted 04/11/16 with gram negative bacteremia, left lower pneumonia. Other medical hx: sepsis, pancreatic CA with past IV chemo, gastric outlet obstruction, PE november 2013, [place] 2001, bilateral tinnitis, severe GERD, BPH, arthritis lower back with chronic back pain, . Last Myocardial Infarction Date:: 2001 History of Any Multi-Drug Resistant Organisms: None Reported Past Surgical History: Back Surgery, Bowel Resection, Joint Replacement Additional Past Surgical History / Comment(s): ivet filter placed november 2013;, EGD [facility] biliary stenting, 07/2014 ERCP which showed previous biliary stent migration-pt had stent replaced and dilatation, colonoscopy, L subclavian mediport, R total hip replacement. "GOO" stent placedment from stomach to intestines, 04/2016 gastric bypass was done at [facility]. Past Anesthesia/Blood Transfusion Reactions: No Reported Reaction Additional Past Anesthesia/Blood Transfusion Reaction / Comm: Pt has never recieved blood. Past Psychological History: Depression Additional Psychological History / Comment(s): Pt states after previous admission and discharge he went to rehab for 6 weeks for strengthening. He is now back home where he lives alone. He is independent. He performs his own ADLs. He uses a walker or cane to ambulate. He drives a car. Patient uses [facility]. Smoking Status: Former smoker Past Alcohol Use History: None Reported Additional Past Alcohol Use History / Comment(s): Pt states he started smoking at age 11 (2) and quit smoking in 1983. He states he was a 2ppd smoker. Pt states he was a past heavy drinker but has not drank in 2-3 yrs. Past Drug Use History: None Reported - Past Family History Father Family Medical History: Cancer Additional Family Medical History / Comment(s): Father at age 53 yrs of pancreatic cancer. Mother Family Medical History: No Reported History Additional Family Medical History / Comment(s): Mother lived to be 92 yrs old with no health problems known. Medications and Allergies Home Medications Medication Instructions Recorded Confirmed Type Doxazosin [Cardura] 4 mg PO BID 04/11/16 08/07/16 History Finasteride [Proscar] 5 mg PO DAILY 04/11/16 08/07/16 History Rivaroxaban [Xarelto] 20 mg PO DAILY 04/11/16 08/07/16 History Sertraline [Zoloft] 50 mg PO DAILY 04/11/16 08/07/16 History Simvastatin [Zocor] 20 mg PO HS 04/11/16 08/07/16 History Tamsulosin HCl [Flomax] 0.4 mg PO DAILY 04/11/16 08/07/16 History Magnesium Oxide [Mag-Ox] 400 mg PO DAILY 05/26/16 08/07/16 History Capecitabine [Xeloda] 1,000 mg PO BID 08/07/16 08/07/16 History Insulin Glargine,Hum.rec.anlog 64 unit SQ HS 08/07/16 08/07/16 History [Lantus Solostar] Omeprazole 20 mg PO DAILY 08/07/16 08/07/16 History metFORMIN HCL 1,000 mg PO BID 08/07/16 08/07/16 History Allergies Allergy/AdvReac Type Severity Reaction Status Date / Time Penicillins Allergy Itching Verified 08/07/16 11:57 Surgical - Exam Vital Signs Pulse Resp BP Pulse Ox 64 14 127/70 92 L 08/07/16 09:12 08/07/16 09:12 08/07/16 09:12 08/07/16 09:12 Results - Labs 08/07/16 09:15 08/07/16 09:15 Abnormal Lab Results - Last 24 Hours (Table) 08/07/16 Range/Units 19:59 POC Glucose (mg/dL) 118 H (75-99) mg/dL
[2016-08-08 06:24] LABS: Glucose,Whole Blood 51 mg/dL (75-99)
[2016-08-08 06:43] LABS: Glucose,Whole Blood 83 mg/dL (75-99)
[2016-08-08] MEDS: PANTOPRAZOLE 40 MG TABLET PO SCH (06:47)
[2016-08-08] MEDS: SODIUM CHLORIDE 0.9% 1,000 ML IV SCH ×2 (06:48→07:44)
[2016-08-08] MEDS: ENOXAPARIN 100 MG/ML SYRINGE SQ SCH ×2 (07:42→21:54)
[2016-08-08] MEDS: TAMSULOSIN 0.4 MG CAP.ER.24H PO SCH (07:43)
[2016-08-08] MEDS: SERTRALINE 50 MG TAB PO SCH (07:43)
[2016-08-08] MEDS: DOXAZOSIN 4 MG TAB PO SCH ×2 (07:43→21:55)
[2016-08-08] MEDS: MAGNESIUM OXIDE 400 MG TAB PO SCH (07:43)
[2016-08-08] MEDS: FINASTERIDE 5 MG TAB PO SCH (07:43)
[2016-08-08] MEDS: metFORMIN 500 MG TAB PO SCH (07:46)
[2016-08-08] MEDS ORDERED: RIVAROXABAN 10 MG TAB PO SCH (09:00)
[2016-08-08] MEDS ORDERED: IV VANCOMYCIN PER PHARMACY 1 EACH MISC MISCELLANE PRN (09:13)
[2016-08-08] MEDS: VANCOMYCIN 1,750 MG in SODIUM CHLORIDE 0.9% 250 ML IVPB SCH ×2 (10:09→21:26)
[2016-08-08 11:37] LABS: Glucose,Whole Blood 106 mg/dL (75-99)
[2016-08-08] MEDS: LACTATED RINGERS 1,000 ML IV SCH (16:18)
--- NOTE | 2016-08-08 16:42 | P.CONS ---
History of Present Illness - Reason for Consult Consult date: 08/08/16 DVT Requesting physician: Dodie Connor - Chief Complaint weakness - History of Present Illness Patient is a very pleasant 75-year-old male patient of Dr. Siu who is admitted for progressive weakness. she has known pancreatic malignancy with metastasis. Details below. Patient states he was having more and more difficulty over a period of several days even getting to the bathroom. Patient states he did not take his medications for 2 days, this includes his blood thinners. Patient called EMS has been brought to the hospital. He is currently being hydrated, he had Doppler of the right lower extremity performed due to swelling with report of DVT, CT of the chest was negative for PE. patient denies any pulmonary symptoms, no excessive shortness of breath, cough, frothy sputum production or hemoptysis. Patient's right lower extremity is swollen compared with the left lower extremity, patient denies any pain in the legs. Patient denies any fevers, oral irritation, difficulty or painful swallowing, has poor appetite with early satiety, no nausea or vomiting, chest pain or shortness of breath, abdominal pain, some mild distention, he states he is having diarrhea for several weeks. he did have a semi-formed bowel movement on Monday, he denies any hemorrhoids or bleeding. Malignancy history: Patient presented to his primary care physician Dr. Mehta in early 2014 with complaints of dark urine, persistent for a few weeks, he was sent to [facility] for evaluation and found to have obstructive jaundice due to pancreatic head/neck mass. Patient was seen by Dr. Clark at [facility] where he had ERCP, EUS and common bile duct plastic stent placement. Biopsy was positive for adenocarcinoma. Patient was not a surgical candidate due to the proximity of vascular structures. Patient underwent neoadjuvant chemotherapy with only one and a half cycles completed due to cholangitis. Patient was in rehabilitation. He was reevaluated but not felt to be a surgical candidate. In October 2014 he had another bout of cholangitis after a common bile duct stent change. Patient was started on single agent Gemzar and had a 5-1/2 cycles of treatment. This was held in February 2015 due to stable disease and patient desiring monitoring only. Patient did well until April 2016. He was found to have gas gastric outlet obstruction with local recurrent pancreatic head carcinoma. Patient had a gastrojejunostomy. He was started on Xeloda in April 2016. This was discontinued just about 2 weeks ago due to CT findings of progressive disease. Review of Systems All systems: negative Constitutional: Reports as per HPI Past Medical History Past Medical History: Cancer, Heart Failure, Diabetes Mellitus, GERD/Reflux, Myocardial Infarction ([place]), Osteoarthritis ([place]), Pneumonia, Prostate Disorder, Pulmonary Embolus ([place]) Additional Past Medical History / Comment(s): Pt admitted 04/11/16 with gram negative bacteremia, left lower pneumonia. Other medical hx: sepsis, pancreatic CA with past IV chemo, gastric outlet obstruction, PE november 2013, [place] 2001, bilateral tinnitis, severe GERD, BPH, arthritis lower back with chronic back pain, . Last Myocardial Infarction Date:: 2001 History of Any Multi-Drug Resistant Organisms: None Reported Past Surgical History: Back Surgery, Bowel Resection, Joint Replacement Additional Past Surgical History / Comment(s): ivet filter placed november 2013;, EGD wt biliary stenting, 07/2014 ERCP which showed previous biliary stent migration-pt had stent replaced and dilatation, colonoscopy, L subclavian mediport, R total hip replacement. "GOO" stent placedment from stomach to intestines, 04/2016 gastric bypass was done at [facility]. Past Anesthesia/Blood Transfusion Reactions: No Reported Reaction Additional Past Anesthesia/Blood Transfusion Reaction / Comm: Pt has never recieved blood. Past Psychological History: Depression Additional Psychological History / Comment(s): Pt states after previous admission and discharge he went to rehab for 6 weeks for strengthening. He is now back home where he lives alone. He is independent. He performs his own ADLs. He uses a walker or cane to ambulate. He drives a car. Patient uses [facility]. Smoking Status: Former smoker Past Alcohol Use History: None Reported Additional Past Alcohol Use History / Comment(s): Pt states he started smoking at age 11 (1954) and quit smoking in 1983. He states he was a 2ppd smoker. Pt states he was a past heavy drinker but has not drank in 2-3 yrs. Past Drug Use History: None Reported - Past Family History Father Family Medical History: Cancer Additional Family Medical History / Comment(s): Father at age 53 yrs of pancreatic cancer. Mother Family Medical History: No Reported History Additional Family Medical History / Comment(s): Mother lived to be 92 yrs old with no health problems known. Medications and Allergies Home Medications Medication Instructions Recorded Confirmed Type Doxazosin [Cardura] 4 mg PO BID 04/11/16 08/07/16 History Finasteride [Proscar] 5 mg PO DAILY 04/11/16 08/07/16 History Rivaroxaban [Xarelto] 20 mg PO DAILY 04/11/16 08/07/16 History Sertraline [Zoloft] 50 mg PO DAILY 04/11/16 08/07/16 History Simvastatin [Zocor] 20 mg PO HS 04/11/16 08/07/16 History Tamsulosin HCl [Flomax] 0.4 mg PO DAILY 04/11/16 08/07/16 History Magnesium Oxide [Mag-Ox] 400 mg PO DAILY 05/26/16 08/07/16 History Insulin Glargine,Hum.rec.anlog 64 unit SQ HS 08/07/16 08/07/16 History [Lantus Solostar] Omeprazole 20 mg PO DAILY 08/07/16 08/07/16 History metFORMIN HCL 1,000 mg PO BID 08/07/16 08/07/16 History Allergies Allergy/AdvReac Type Severity Reaction Status Date / Time Penicillins Allergy Itching Verified 08/07/16 11:57 Physical Exam Vitals: Vital Signs Temp Pulse Pulse Resp BP BP Pulse Ox 08/08/16 15:00 97.4 F L 103 H 16 107/66 98 08/08/16 11:25 96.9 F L 110 H 18 94 L 08/08/16 07:50 96.9 F L 114 H 20 125/68 97 08/08/16 04:00 114 H 18 120/78 97 08/07/16 23:56 67 18 106/66 99 08/07/16 20:00 99.8 F H 84 18 120/75 100 08/07/16 17:14 98.6 F 100 18 159/82 98 08/07/16 17:08 97 F L 90 17 121/75 99 Intake and Output 08/08/16 08/08/16 08/08/16 06:59 14:59 22:59 Intake Total 500 1000 Output Total 125 Balance 500 875 Intake: IV 500 800 Sodium Chloride 0.9% 1, 500 800 000 ml @ 100 mls/hr IV . Q10H [facility] Rx#:[id number] Oral 200 Output: Urine 125 Other: Weight 106 kg - Constitutional General appearance: cooperative, no acute distress, obese - EENT Eyes: anicteric sclerae, PERRLA, normal appearance ENT: normal oropharynx - Neck Neck: no lymphadenopathy - Respiratory Respiratory: bilateral: CTA - Cardiovascular Heart sounds: normal: S1, S2 leg Peripheral Edema: bilateral: None - Gastrointestinal General gastrointestinal: distended, normal bowel sounds, soft - Integumentary Integumentary: normal - Neurologic Neurologic: CNII-XII intact - Musculoskeletal Musculoskeletal: generalized weakness, strength equal bilaterally - Psychiatric Psychiatric: A&O x's 3, appropriate affect, intact judgment & insight Results CBC & Chem 7: 08/07/16 09:15 08/07/16 09:15 Labs: Abnormal Lab Results - Last 24 Hours (Table) 08/07/16 08/08/16 08/08/16 Range/Units 19:59 06:22 11:34 POC Glucose (mg/dL) 118 H 51 L 106 H (75-99) mg/dL Chest x-ray: report reviewed CT scan - chest: report reviewed Venous US: report reviewed Assessment and Plan (1) DVT (deep venous thrombosis) Narrative/Plan: Doppler reporting right lower extremity DVT, no evidence currently of PE. Patient was on oral anticoagulation but, unfortunately for about 3 days he was unable to take medications due to profound weakness. She has been switched over to an injectable anticoagulant. Status: Acute (2) Pancreatic cancer metastasized to liver Narrative/Plan: Patient due to start new oral treatment. Patient states he has the medication at home. Told patient that possibly starting next Monday as long as he is eating and drinking better that would be reasonable. Patient is scheduled for a follow-up with Dr. Siu in about [address] weeks[address] if Dr. Siu would like any other tests while pt is inpatient. Status: Chronic
[2016-08-08 16:44] LABS: Glucose,Whole Blood 70 mg/dL (75-99)
[2016-08-08] MEDS ORDERED: LEVOFLOXACIN 750MG-D5W PMX 500 MG in DEXTROSE/WATER 1 150ML.BAG IVPB SCH (16:46)
[2016-08-08] MEDS: NON-FORMULARY DRUG (Capecitabine [Xeloda] 1,000 MG) PO SCH (17:44)
--- NOTE | 2016-08-08 18:19 | HP ---
DATE OF ADMISSION: Patient is a 75-year-old who came in with pain in the right leg and generalized weakness that has been going on since Monday. Patient came to ER. Patient's right lower limb was swollen. Patient had a DVT in the past in that leg, and patient was found to have another DVT which appears to be subacute, maybe an acute DVT in the inferior vena cava. Patient is on Xarelto 20 mg daily and patient has an IVC filter in place. Patient does have a history of pancreatic cancer. I re-consulted Oncology regarding recommendations regarding anticoagulation therapy, as this can be considered as Xarelto failure or not, the other issue being patient has generalized weakness. Patient denied any significant post-thrombotic pain in the right leg. Vascular Surgery evaluated the patient. Patient is also found to be bacteremic with Gram-positive cocci. Repeat blood cultures will be obtained. Patient is on vancomycin. Initially it was believed that patient had pneumonia. Reviewed the CT of the chest. It is not impressive for pneumonia. I discontinued levofloxacin. Patient is on ceftriaxone and vancomycin as per recommendations from Dr. Kendall, which will be continued. Patient was started on enoxaparin and Xarelto is being held. Patient denied any cough, fever, chills. Patient denied any nausea, vomiting, abdominal pain. REVIEW OF SYSTEMS: CONSTITUTIONAL: No fever, no malaise, no fatigue. HEENT: No recent visual problems or hearing problems. Denied any sore throat. CARDIOVASCULAR: No chest pain, orthopnea, PND, no palpitations, no syncope. PULMONARY: No shortness of breath, no cough, no hemoptysis. GASTROINTESTINAL: No diarrhea, no nausea, no vomiting, no abdominal pain. Normoactive bowel sounds. NEUROLOGICAL: No headaches, no weakness, no numbness. HEMATOLOGICAL: Denies any bleeding or petechiae. GENITOURINARY: Denies any burning micturition, frequency, or urgency. MUSCULOSKELETAL/RHEUMATOLOGICAL: As described in HPI. ENDOCRINE: Denies any polyuria or polydipsia. The rest of the 14 point review of systems is negative. Home medications include: 1. Doxazosin. 2. Finasteride. 3. Rivaroxaban. 4. Sertraline. 5. Simvastatin. 6. Tamsulosin. 7. Glargine. 8. Omeprazole. 9. Metformin. Past medical history is significant for: 1. Diabetes mellitus. 2. Gastroesophageal reflux disease. 3. Myocardial infarction in the past. 4. Benign prostatic hypertrophy. 5. Pulmonary embolism in the past. 6. Patient had normal ejection fraction in the past and no congestive heart failure. 7. History of pancreatic cancer. Patient is actively receiving chemotherapy at this point of time. PAST SURGICAL HISTORY: 1. Back surgery. 2. Bowel resection surgery. 3. Joint replacement surgery. 4. Patient has a Reji filter placed. 5. EGDs. 6. ERCPs in the past. 7. Biliary stents in the past. SOCIAL HISTORY: Quit smoking in 1983; used to smoke 2 packs per day. Past heavy drinker. Did not drink for the last 2 to 3 years. FAMILY HISTORY: Father had cancer. Mother lived to 92 years of age. PHYSICAL EXAMINATION: GENERAL: The patient is alert and oriented x3, not in any acute distress. Well developed, well nourished. HEENT: Pupils are round and equally reacting to light. EOMI. No scleral icterus. No conjunctival pallor. Normocephalic, atraumatic. No pharyngeal erythema. No thyromegaly. CARDIOVASCULAR: S1 and S2 present. No murmurs, rubs, or gallops. PULMONARY: Chest is clear to auscultation, no wheezing or crackles. ABDOMEN: Soft, nontender, nondistended, normoactive bowel sounds. No palpable organomegaly. MUSCULOSKELETAL: No joint swelling or deformity. EXTREMITIES: No cyanosis, clubbing, or pedal edema. Right lower limb: Patient does have increased redness of the right lower limb and increased swelling of the right lower limb. NEUROLOGICAL: Gross neurological examination did not reveal any focal deficits. SKIN: No rashes. LABORATORY DATA: Patient has lactic acidosis. Will decrease the lactic acid. Elevated D-dimer, but CT angiogram negative for pulmonary embolism. Patient has an IVC filter. Patient had anion gap metabolic acidosis. Patient is mildly tachycardic at this point of time. ASSESSMENT AND PLAN: 1. Possible sepsis with bacteremia; primary source of sepsis is unknown. My suspicion is low for pneumonia. There is no infiltrate consistent with pneumonia at this time. Patient does have lactic acidosis with anion gap metabolic acidosis. Patient will be continued on IV fluids. 2. Diabetes mellitus. Metformin needs to be discontinued because of the lactic acidosis. 3. Right lower limb deep venous thrombosis. Not sure whether patient has an acute DVT or not. Hematology will be consulted. Patient was switched to enoxaparin at this time. 4. Hyperlipidemia. 5. Benign prostatic hypertrophy. 6. Pancreatic cancer, actively receiving Xeloda, which is being held at this point of time. PLAN: As mentioned above. Repeat blood cultures today, tomorrow and after. Repeat lactic acid.
[2016-08-08 20:21] LABS: Glucose,Whole Blood 117 mg/dL (75-99)
[2016-08-08] MEDS: INSULIN GLARGINE 100 UNIT/ML 10 ML VIAL SQ SCH (20:43)
[2016-08-08] MEDS: ATORVASTATIN 10 MG TAB PO SCH (21:54)
[2016-08-09] MEDS: LACTATED RINGERS 1,000 ML IV SCH ×3 (07:15→16:36)
[2016-08-09] MEDS: SODIUM CHLORIDE 0.9% 1,000 ML IV SCH (07:16)
[2016-08-09 07:37] LABS: Glucose,Whole Blood 107 mg/dL (75-99)
[2016-08-09] MEDS: PANTOPRAZOLE 40 MG TABLET PO SCH (07:40)
[2016-08-09 08:30] LABS: Anion Gap 10 mmol/L; Blood Urea Nitrogen 16 mg/dL (9-20); Calcium 8.6 mg/dL (8.4-10.2); Carbon Dioxide 21 mmol/L (22-30); Chloride 106 mmol/L (98-107); Glucose 104 mg/dL (74-99); Non-African American GFR(MDRD) >60 (>60 ml/min/1.73 sqM); Sodium 137 mmol/L (137-145)
--- NOTE | 2016-08-09 08:31 | PN ---
DATE OF SERVICE: 08/08/16 Reason for follow up is: 1. Possible pneumonia. 2. Positive blood culture. INTERVAL HISTORY: The patient is afebrile. His breathing has slightly improved. He did have a mild cough, did not bring up any sputum. Denies any chest pain, no abdominal pain. No diarrhea. No nausea or vomiting. On examination, blood pressure 107/63 with a pulse of 103, temperature 97.4. He is 98% on room air. General description is an elderly male, lying in bed in no distress. RESPIRATORY SYSTEM: Unlabored breathing with decreased breath sounds at the base. No wheeze. HEART: S1, S2. Regular rate and rhythm. ABDOMEN: Soft, no tenderness. Right leg with swelling. He also has a Mediport on the left chest wall that has not been assessed with no evidence of any swelling and redness in that spot. LABS: BUN of 12, creatinine 0.93, hemoglobin is 12.5, white count 12.5. Blood cultures with gram-positive cocci. DIAGNOSTIC IMPRESSION AND PLAN: Patient admitted to the hospital with weakness, right leg swelling, has been diagnosed with a DVT with a CT of the chest raising the possibility of possible pneumonia. The patient did have some cough, could not bring up any sputum now with a positive blood culture. Vancomycin has been added that will be continued while we are waiting for the final ID of this Gram-positive. Continue Rocephin as well. Will try to obtain a sputum. Continue supportive care. MTDD
[2016-08-09 08:47] LABS: Anisocytosis Slight; CH 28.3; CHCM 31.3; HDW 2.54; Hypochromasia Slight; MCH 28.6 pg (25.0-35.0); MCHC 31.5 g/dL (31.0-37.0); MCV 90.7 fL (80.0-100.0); Mean Platelet Volume 7.9; RBC 3.31 m/uL (4.30-5.90); RDW 18.3 % (11.5-15.5); WBC 3.8 k/uL (3.8-10.6)
[2016-08-09 08:53] LABS: HGB 9.5 gm/dL (13.0-17.5)
[2016-08-09] MEDS: ENOXAPARIN 100 MG/ML SYRINGE SQ SCH ×2 (09:48→19:47)
[2016-08-09] MEDS: TAMSULOSIN 0.4 MG CAP.ER.24H PO SCH (09:49)
[2016-08-09] MEDS: MAGNESIUM OXIDE 400 MG TAB PO SCH (09:49)
[2016-08-09] MEDS: DOXAZOSIN 4 MG TAB PO SCH ×2 (09:49→19:48)
[2016-08-09] MEDS: FINASTERIDE 5 MG TAB PO SCH (09:49)
[2016-08-09] MEDS: VANCOMYCIN 1,750 MG in SODIUM CHLORIDE 0.9% 250 ML IVPB SCH (09:49)
[2016-08-09] MEDS: SERTRALINE 50 MG TAB PO SCH (09:49)
[2016-08-09 10:55] LABS: Glucose,Whole Blood 105 mg/dL (75-99)
--- NOTE | 2016-08-09 11:05 | DS ---
DATE OF ADMISSION: 08/07/2016 DATE OF DISCHARGE: Patient is a 75-year-old admitted with generalized weakness secondary cancer per se. I believe patient has had cancer cachexia and patient has a another DVT in the right leg. Patient was on Xarelto. It appears like patient failed Xarelto. Patient will need Lovenox. Patient has bacteremia with Staphylococcus which is staph epidermidis which is a contamination. Regarding his pneumonia, I did not see any infiltrate on the chest x-ray, although as per Infectious Disease, there is a suspicion of pneumonia. I will let them decide on the antibiotics. My suspicion is that I do not believe patient actually has pneumonia. Patient does have generalized weakness, will most probably require subacute rehabilitation. Will give him a lower dose of ( ) , which we cannot use Megace because of his extensive DVT. We can use Marinol a lower dose so that he will have enough nutrition and strength for rehabilitation. Patient has advanced metastatic pancreatic cancer and a 3 cm thoracic aortic aneurysm. REVIEW OF SYSTEMS: GENERAL: As described in HPI. CARDIOVASCULAR: No chest pain, no orthopnea, no PND, no palpitations. PULMONARY: Denied any shortness of breath. No cough or hemoptysis. GASTROINTESTINAL: No diarrhea, nausea or vomiting. No abdominal pain. Normoactive bowel sounds. NEUROLOGIC: No headaches, no weakness, no numbness. Medications were reviewed. PHYSICAL EXAMINATION: VITAL SIGNS: Temperature is 98.3, pulse 101, respiratory rate of 18, blood pressure is 107/65. GENERAL: A bit obese. Alert and oriented x3. HEENT: Pupils are round and equally reacting to light. EOMI. No scleral icterus. No conjunctival pallor. Normocephalic, atraumatic. No pharyngeal erythema. No thyromegaly. CARDIOVASCULAR: S1 and S2 present. No murmurs, rubs, or gallops. PULMONARY: Chest is clear to auscultation, no wheezing or crackles. ABDOMEN: Soft, nontender, nondistended, normoactive bowel sounds. No palpable organomegaly. MUSCULOSKELETAL: No joint swelling or deformity. EXTREMITIES: No cyanosis, clubbing, or pedal edema. NEUROLOGICAL: Gross neurological examination did not reveal any focal deficits. SKIN: No rashes. LABORATORY DATA: CBC, CMP are abnormal for low hemoglobin of 9.5, I believe this hemodilute effect. ASSESSMENT AND PLAN: 1. Possibility of sepsis. My suspicion is low for pneumonia. My suspicion of sepsis itself is low. Patient did have anion gap metabolic acidosis secondary to dehydration, which improved at this point of time. 2. Type 2 diabetes mellitus. Patient cannot use metformin because of his lactic acidosis. 3. Right lower limb deep venous thrombosis, failed Xarelto. Patient needs to be on Lovenox. 4. Metastatic pancreatic cancer. 5. Thoracic aortic aneurysm 3.1 cm. 6. Benign prostatic hypertrophy. 7. Mild malnutrition. Patient will follow with Dr. Chito Olguin in the rehab. Activity as tolerated. Patient will follow with Dr. Coy Siu as an outpatient. DISCHARGE DIET: Diabetic and cardiac diet. Please refer to my depart summary for further details of discharge medications.
--- NOTE | 2016-08-09 14:23 | P.PN ---
Subjective Principal diagnosis: weakness, RLE DVT Pt seen today in followup, he feels a little better then on admit, he is starting to eat a little more, no nausea or vomiting, he is on the lovenox with no c/o bleeding, he had a BM 2 days ago, he was assisted to the restroom this AM. Plans are for subacute rehab. Objective - Vital Signs Vital signs: Vital Signs Temp 98.3 F 08/09/16 07:00 Pulse 101 H 08/09/16 07:00 Resp 18 08/09/16 07:00 BP 107/65 08/09/16 07:00 Pulse Ox 95 08/09/16 07:00 Intake & Output 08/08/16 08/09/16 08/09/16 18:59 06:59 18:59 Intake Total 1000 1190 200 Output Total 125 600 125 Balance 875 590 75 Intake: IV 800 Sodium Chloride 0.9% 1, 800 000 ml @ 100 mls/hr IV . Q10H [facility] Rx#:[id number] Intake, IV Titration 600 200 Amount Lactated Ringers 1,000 ml 600 150 @ 75 mls/hr IV .[id number] [facility] Rx#:[id number] cefTRIAXone 1,000 mg In 50 Sodium Chloride 0.9% 50 ml @ 100 mls/hr IVPB Q24HR [facility] Rx#:[id number] Oral 200 590 Output: Urine 125 600 125 Other: Voiding Method Urinal - Constitutional General appearance: Present: cooperative, no acute distress, obese - Respiratory Respiratory: bilateral: CTA - Cardiovascular Heart sounds: normal: S1, S2 - Gastrointestinal General gastrointestinal: Present: normal bowel sounds, soft - Integumentary Integumentary: Present: pale - Neurologic Neurologic: Present: CNII-XII intact - Musculoskeletal Musculoskeletal: Present: generalized weakness - Psychiatric Psychiatric: Present: A&O x's 3, appropriate affect, intact judgment & insight - Labs CBC & Chem 7: 08/09/16 07:35 08/09/16 07:35 Labs: Abnormal Lab Results - Last 24 Hours (Table) 08/08/16 08/08/16 08/09/16 Range/Units 16:43 20:20 07:14 RBC (4.30-5.90) m/uL Hgb (13.0-17.5) gm/dL Hct (39.0-53.0) % RDW (11.5-15.5) % Plt Count (150-450) k/uL Carbon Dioxide (22-30) mmol/L Glucose (74-99) mg/dL POC Glucose (mg/dL) 70 L 117 H 107 H (75-99) mg/dL 08/09/16 08/09/16 08/09/16 Range/Units 07:35 07:35 10:53 RBC 3.31 L (4.30-5.90) m/uL Hgb 9.5 L D (13.0-17.5) gm/dL Hct 30.0 L (39.0-53.0) % RDW 18.3 H (11.5-15.5) % Plt Count 106 L D (150-450) k/uL Carbon Dioxide 21 L (22-30) mmol/L Glucose 104 H (74-99) mg/dL POC Glucose (mg/dL) 105 H (75-99) mg/dL Assessment and Plan (1) DVT (deep venous thrombosis) Narrative/Plan: Lovenox has been prescribed, Rx was sent for copay verification. Status: Acute (2) Pancreatic cancer metastasized to liver Narrative/Plan: Pt is aware of disease progression and the likelyhood that this most recently prescribed targeted agent will not provide durable response but, pt is interested in trying it. He will not start the medication until after he has completed antibiotics, rehab and has been seen by us. All of his and his daughters questions were answered. Pt ok for DC to rehab once cleared by attending and other consulting physicians Status: Chronic
[2016-08-09 16:44] LABS: Glucose,Whole Blood 237 mg/dL (75-99)
--- NOTE | 2016-08-09 17:23 | PN ---
DATE OF SERVICE: 08/09/2016 REASON FOR FOLLOWUP: 1. Positive blood culture. 2. Question of pneumonia. INTERVAL HISTORY: The patient is afebrile, has been breathing comfortably. The patient denies significant chest pain or shortness of breath. Very minimal cough. No abdominal pain. No nausea, vomiting or any diarrhea. On examination, blood pressure is 107/55 with a pulse of 101, temperature 98.3. He is 95% on room air. General description is an elderly male lying in bed in no distress. RESPIRATORY SYSTEM: Unlabored breathing. Clear to auscultation anteriorly. HEART: S1, S2. Regular rate and rhythm. ABDOMEN: Soft. No tenderness. LABS: Hemoglobin 9.5, white count of 3.8 with a BUN of 15, creatinine 0.82. Blood culture finalized with coagulase-negative Staph. DIAGNOSTIC IMPRESSION AND PLAN: 1. Patient with positive blood culture with coagulase negative Staphylococcus, likely skin contamination, as the patient has no clinical disease to go along with it. He did have Mediport on his left upper chest without evidence of any cellulitis. Repeat blood culture has been ordered. 2. Patient with the CT with possibility of pneumonia; however, after discussion with the attending physician, who has reviewed the CT with no evidence of any infiltrate, the patient clinically not behaving as pneumonia with no fever, no cough; hence, would recommend discontinuation of antibiotic and watch him closely off antibiotic. This was discussed in detail with the patient, who understands and agrees with the plan.
[2016-08-09] MEDS: ATORVASTATIN 10 MG TAB PO SCH (19:47)
[2016-08-09 20:27] LABS: Glucose,Whole Blood 260 mg/dL (75-99)
[2016-08-09] MEDS: INSULIN GLARGINE 100 UNIT/ML 10 ML VIAL SQ SCH (20:36)
[2016-08-10] MEDS: LACTATED RINGERS 1,000 ML IV SCH (04:09)
[2016-08-10 07:19] LABS: Glucose,Whole Blood 90 mg/dL (75-99)
[2016-08-10 07:51] VITALS: BP 117/62; PULSE 89; RESP 18; TEMP 98.6
[2016-08-10] MEDS: MAGNESIUM OXIDE 400 MG TAB PO SCH (07:58)
[2016-08-10] MEDS: TAMSULOSIN 0.4 MG CAP.ER.24H PO SCH (07:58)
[2016-08-10] MEDS: ENOXAPARIN 100 MG/ML SYRINGE SQ SCH (07:58)
[2016-08-10] MEDS: FINASTERIDE 5 MG TAB PO SCH (07:58)
[2016-08-10] MEDS: DOXAZOSIN 4 MG TAB PO SCH (07:58)
[2016-08-10] MEDS: SERTRALINE 50 MG TAB PO SCH (07:58)
[2016-08-10] MEDS: PANTOPRAZOLE 40 MG TABLET PO SCH (07:58)
[2016-08-10] MEDS ORDERED: VANCOMYCIN TROUGH DUE 1 EACH MISC MISCELLANE ONE (08:00)
[2016-08-10 10:53] VITALS: BMI 31.6
[2016-08-10 11:17] LABS: Glucose,Whole Blood 166 mg/dL (75-99)
--- NOTE | 2016-08-11 09:42 | DS ---
DATE OF ADMISSION: 08/07/2016 DATE OF DISCHARGE: 08/10/2016 The patient is a 75-year-old admitted with generalized weakness and patient is found to have a new DVT. The patient was discharged yesterday from my service. Patient ended up staying here because of social issues like placement and patient is being discharged today. Please refer to my dictation of discharge summary from yesterday for further details. Please consider my discharge summary from yesterday as a progress note.
== END 2016-08-10 13:18 | DRG 300 ==
LOC: EC 09:09 → 6SEL 16:42 → 5ONC 08-08 14:11
PROVIDERS: ADMIT Family Medicine; ATTEND Family Medicine
DX: I82.431 Acute embolism and thrombosis of right popliteal vein (principal); E44.1 Mild protein-calorie malnutrition; R64 Cachexia; E87.2 Acidosis; C78.7 Secondary malignant neoplasm of liver and intrahepatic bile duct; C25.0 Malignant neoplasm of head of pancreas; K31.1 Adult hypertrophic pyloric stenosis; I71.2 Thoracic aortic aneurysm, without rupture; E11.9 Type 2 diabetes mellitus without complications; E86.0 Dehydration; T45.516A Underdosing of anticoagulants, initial encounter; K21.9 Gastro-esophageal reflux disease without esophagitis; I25.2 Old myocardial infarction; T38.3X5A Adverse effect of insulin and oral hypoglycemic [antidiabetic] drugs, initial encounter; R53.1 Weakness; F32.9 Major depressive disorder, single episode, unspecified; I45.10 Unspecified right bundle-branch block; I49.1 Atrial premature depolarization; E66.9 Obesity, unspecified; N40.0 Benign prostatic hyperplasia without lower urinary tract symptoms; E78.5 Hyperlipidemia, unspecified; R05 Cough; R06.02 Shortness of breath; R00.0 Tachycardia, unspecified; M46.96 Unspecified inflammatory spondylopathy, lumbar region; G89.29 Other chronic pain; R11.2 Nausea with vomiting, unspecified; R91.8 Other nonspecific abnormal finding of lung field; M47.9 Spondylosis, unspecified; R51 Headache; Z79.4 Long term (current) use of insulin; Z79.899 Other long term (current) drug therapy; Z96.641 Presence of right artificial hip joint; Z68.31 Body mass index [BMI] 31.0-31.9, adult; Z71.3 Dietary counseling and surveillance; Z86.718 Personal history of other venous thrombosis and embolism; Z90.49 Acquired absence of other specified parts of digestive tract; Z86.19 Personal history of other infectious and parasitic diseases; Z87.01 Personal history of pneumonia (recurrent); Z86.711 Personal history of pulmonary embolism; Z79.01 Long term (current) use of anticoagulants; Z87.891 Personal history of nicotine dependence; Z88.0 Allergy status to penicillin; Z80.0 Family history of malignant neoplasm of digestive organs; Z92.21 Personal history of antineoplastic chemotherapy; Z95.828 Presence of other vascular implants and grafts; Z87.19 Personal history of other diseases of the digestive system; Z86.79 Personal history of other diseases of the circulatory system
CPT/HCPCS: 36415; 71020; 71275; 80048; 80053; 81001; 82550; 82553; 83605; 83880; 84484; 85025; 85027; 85379; 85610; 85730; 87040; 87077; 87086; 87186; 93005; 96361; 96365; 96375; 99285

== ENCOUNTER 2016-09-27 14:03 | Inpatient (IN) | payer MEDICARE, BC ==
[2016-09-27] MEDS ORDERED: SODIUM CHLORIDE 0.9% 1,000 ML IV STA ×2 (14:15)
[2016-09-27] MEDS ORDERED: IPRATROPIUM-ALBUTEROL 3 ML NEB INHALATION STA (14:16)
[2016-09-27 15:23] LABS: ALT 33 U/L (21-72); AST 64 U/L (17-59); Alkaline Phosphatase 489 U/L (38-126); Anion Gap 16 mmol/L; Blood Urea Nitrogen 12 mg/dL (9-20); Calcium 8.9 mg/dL (8.4-10.2); Carbon Dioxide 18 mmol/L (22-30); Chloride 106 mmol/L (98-107); Glucose 184 mg/dL (74-99); Magnesium 1.5 mg/dL (1.6-2.3); Non-African American GFR(MDRD) >60 (>60 ml/min/1.73 sqM); Potassium 3.8 mmol/L (3.5-5.1); Sodium 140 mmol/L (137-145); Total Bilirubin 1.2 mg/dL (0.2-1.3); Total Protein 6.7 g/dL (6.3-8.2)
[2016-09-27 15:27] LABS: Creatine Kinase 22 U/L (55-170)
[2016-09-27 15:28] LABS: INR 1.3 (<1.1); Partial Thromboplastin Time 23.7 sec (22.0-30.0); Prothrombin Time 12.6 sec (9.0-12.0)
[2016-09-27 15:41] LABS: Creatine Kinase MB 0.6 ng/mL (0.0-2.4); Troponin I <0.012 ng/mL (0.000-0.034)
[2016-09-27 16:04] LABS: Anisocytosis Slight; Eosinophils # (A) 0.1 k/uL (0-0.7); Eosinophils % (A) 0 %; HDW 2.69; Hypochromasia Moderate; Luc % (Auto) 1
[2016-09-27 16:11] LABS: Basophils # (A) 0.1 k/uL (0-0.2); Basophils % (A) 0 %; CHCM 30.8; HCT 41.9 % (39.0-53.0); HGB 12.9 gm/dL (13.0-17.5); Luc # (Auto) 0.08; Lymphocytes # (A) 0.7 k/uL (1.0-4.8); Lymphocytes % (A) 5 %; MCHC 30.8 g/dL (31.0-37.0); Mean Platelet Volume 8.1; Monocytes # (A) 0.5 k/uL (0-1.0); Monocytes % (A) 4 %; Neutrophils # (A) 11.8 k/uL (1.3-7.7); Neutrophils % (A) 90 %; WBC 13.2 k/uL (3.8-10.6); WBC (Perox) 13.09
--- NOTE | 2016-09-27 16:15 | XR ---
EXAMINATION TYPE: XR chest 2V DATE OF EXAM: 09/27/2016 4:05 PM COMPARISON: 08/07/2016 HISTORY: 76-year-old male difficulty breathing and weakness TECHNIQUE: AP and lateral views FINDINGS: Left anterior chest wall injection port with catheter tip at the mid to lower SVC. Heart is normal si ze. Mild elongation of the thoracic aorta. Mild interstitial prominence is unchanged and chronic. The re are trace to small bilateral pleural effusions. IMPRESSION: Trace bilateral effusions.
--- NOTE | 2016-09-27 16:43 | ED ---
Weakness HPI - General Chief complaint: Weakness Stated complaint: SOB, Weakness Time Seen by Provider: 09/27/16 14:03 Source: patient, EMS, RN notes reviewed Mode of arrival: EMS Limitations: no limitations - History of Present Illness Initial comments: This is a 68-year-old male who presents with complaints of shortness of breath and weakness. He also had nausea vomiting last evening and this morning. He is ever recent history of DVT diagnosis. Denies any fevers chills or sweats at this point. No overt chest pain. MD Complaint: generalized weakness - Related Data Home Medications Medication Instructions Recorded Confirmed Finasteride [Proscar] 5 mg PO DAILY 04/11/16 09/27/16 Sertraline [Zoloft] 50 mg PO HS 04/11/16 09/27/16 Tamsulosin HCl [Flomax] 0.4 mg PO DAILY 04/11/16 09/27/16 Magnesium Oxide [Mag-Ox] 400 mg PO DAILY 05/26/16 09/27/16 Furosemide [Lasix] 40 mg PO DAILY 09/27/16 09/27/16 Insulin Glargine,Hum.rec.anlog 20 unit SQ DAILY 09/27/16 09/27/16 [Lantus Solostar] Omeprazole 40 mg PO DAILY 09/27/16 09/27/16 Previous Rx's Medication Instructions Recorded Dronabinol [Marinol] 2.5 mg PO BID #30 capsule 08/09/16 Enoxaparin [Lovenox] 100 mg SQ Q12HR #30 syringe 08/09/16 Allergies Allergy/AdvReac Type Severity Reaction Status Date / Time Penicillins Allergy Itching Verified 09/27/16 15:53 Review of Systems ROS Statement: Those systems with pertinent positive or pertinent negative responses have been documented in the HPI. ROS Other: All systems not noted in ROS Statement are negative. Past Medical History Past Medical History: Cancer, Heart Failure, Diabetes Mellitus, GERD/Reflux, Myocardial Infarction (VT), Osteoarthritis (OA), Pneumonia, Prostate Disorder, Pulmonary Embolus (PE) Additional Past Medical History / Comment(s): Pt admitted 04/11/16 with gram negative bacteremia, left lower pneumonia. Other medical hx: sepsis, pancreatic CA with past IV chemo, gastric outlet obstruction, PE november 2013, VT 2001, bilateral tinnitis, severe GERD, BPH, arthritis lower back with chronic back pain, . Last Myocardial Infarction Date:: 2001 History of Any Multi-Drug Resistant Organisms: None Reported Past Surgical History: Back Surgery, Bowel Resection, Joint Replacement Additional Past Surgical History / Comment(s): ivet filter placed november 2013;, EGD wtih biliary stenting, 07/2014 ERCP which showed previous biliary stent migration-pt had stent replaced and dilatation, colonoscopy, L subclavian mediport, R total hip replacement. "GOO" stent placedment from stomach to intestines, 04/2016 gastric bypass [facility] at [facility]. Past Anesthesia/Blood Transfusion Reactions: No Reported Reaction Additional Past Anesthesia/Blood Transfusion Reaction / Comment(s): Pt has never recieved blood. Past Psychological History: Depression Additional Psychological History / Comment(s): Pt states after previous admission and discharge he went to rehab for 6 weeks for strengthening. He is now back home where he lives alone. He is independent. He performs his own ADLs. He uses a walker or cane to ambulate. He drives a car. Patient uses [facility] nurse and [facility]. Smoking Status: Former smoker Past Alcohol Use History: None Reported Additional Past Alcohol Use History / Comment(s): Pt states he started smoking at age 11 (2) and quit smoking in 1983. He states he was a 2ppd smoker. Pt states he was a past heavy drinker but has not drank in 2-3 yrs. Past Drug Use History: None Reported - Past Family History Father Family Medical History: Cancer Additional Family Medical History / Comment(s): Father at age 53 yrs of pancreatic cancer. Mother Family Medical History: No Reported History Additional Family Medical History / Comment(s): Mother lived to be 92 yrs old with no health problems known. General Exam - General Exam Comments Initial Comments: This is a well-developed well-nourished awake alert oriented 3 male Limitations: no limitations General appearance: alert, in no apparent distress Head exam: Present: atraumatic, normocephalic, normal inspection Eye exam: Present: normal appearance, PERRL, EOMI. Absent: scleral icterus, conjunctival injection, periorbital swelling ENT exam: Present: mucous membranes dry Neck exam: Present: normal inspection. Absent: tenderness, meningismus, lymphadenopathy Respiratory exam: Present: rales, decreased breath sounds. Absent: respiratory distress, wheezes, rhonchi, stridor Cardiovascular Exam: Present: normal rhythm, tachycardia, normal heart sounds. Absent: systolic murmur, diastolic murmur, rubs, gallop, clicks GI/Abdominal exam: Present: soft, normal bowel sounds. Absent: distended, tenderness, guarding, rebound, rigid Extremities exam: Present: normal inspection, full ROM, normal capillary refill , pedal edema (More so on the right than the left calf tenderness). Absent: tenderness, joint swelling, calf tenderness Back exam: Present: normal inspection Neurological exam: Present: alert, oriented X3, CN II-XII intact Psychiatric exam: Present: normal affect, normal mood Skin exam: Present: warm, dry, intact, normal color. Absent: rash Course Vital Signs 09/27/16 09/27/16 09/27/16 14:20 15:30 15:39 Temperature 97.8 F Pulse Rate 110 H 99 89 Respiratory 18 Rate Blood Pressure 86/52 O2 Sat by Pulse 99 Oximetry Medical Decision Making - Medical Decision Making Patient still having difficulty breathing though he is improved he'll be admitted the case will be discussed with Dr. Olguin - Lab Data Result diagrams: 09/27/16 14:46 09/27/16 14:46 Lab Results 09/27/16 09/27/16 09/27/16 Range/Units 14:46 14:46 14:46 WBC 13.2 H (3.8-10.6) k/uL RBC 4.60 (4.30-5.90) m/uL Hgb 12.9 L D (13.0-17.5) gm/dL Hct 41.9 (39.0-53.0) % MCV 91.0 (80.0-100.0) fL MCH 28.0 (25.0-35.0) pg MCHC 30.8 L (31.0-37.0) g/dL RDW 17.0 H (11.5-15.5) % Plt Count 252 D (150-450) k/uL Neutrophils % 90 % Lymphocytes % 5 % Monocytes % 4 % Eosinophils % 0 % Basophils % 0 % Neutrophils # 11.8 H (1.3-7.7) k/uL Lymphocytes # 0.7 L (1.0-4.8) k/uL Monocytes # 0.5 (0-1.0) k/uL Eosinophils # 0.1 (0-0.7) k/uL Basophils # 0.1 (0-0.2) k/uL Hypochromasia Moderate Anisocytosis Slight PT (9.0-12.0) sec INR (<1.1) APTT (22.0-30.0) sec D-Dimer (<0.60) mg/L FEU Sodium 140 (137-145) mmol/L Potassium 3.8 (3.5-5.1) mmol/L Chloride 106 (98-107) mmol/L Carbon Dioxide 18 L (22-30) mmol/L Anion Gap 16 mmol/L BUN 12 (9-20) mg/dL Creatinine 0.90 (0.66-1.25) mg/dL Est GFR (MDRD) Af Amer >60 (>60 ml/min/1.73 sqM) Est GFR (MDRD) Non-Af >60 (>60 ml/min/1.73 sqM) Glucose 184 H (74-99) mg/dL Calcium 8.9 (8.4-10.2) mg/dL Magnesium 1.5 L (1.6-2.3) mg/dL Total Bilirubin 1.2 (0.2-1.3) mg/dL AST 64 H (17-59) U/L ALT 33 (21-72) U/L Alkaline Phosphatase 489 H (38-126) U/L Total Creatine Kinase 22 L (55-170) U/L CK-MB (CK-2) 0.6 (0.0-2.4) ng/mL CK-MB (CK-2) Rel Index 2.7 Troponin I <0.012 (0.000-0.034) ng/mL NT-Pro-B Natriuret Pep pg/mL Total Protein 6.7 (6.3-8.2) g/dL Albumin 3.1 L (3.5-5.0) g/dL 09/27/16 09/27/16 Range/Units 14:46 14:46 WBC (3.8-10.6) k/uL RBC (4.30-5.90) m/uL Hgb (13.0-17.5) gm/dL Hct (39.0-53.0) % MCV (80.0-100.0) fL MCH (25.0-35.0) pg MCHC (31.0-37.0) g/dL RDW (11.5-15.5) % Plt Count (150-450) k/uL Neutrophils % % Lymphocytes % % Monocytes % % Eosinophils % % Basophils % % Neutrophils # (1.3-7.7) k/uL Lymphocytes # (1.0-4.8) k/uL Monocytes # (0-1.0) k/uL Eosinophils # (0-0.7) k/uL Basophils # (0-0.2) k/uL Hypochromasia Anisocytosis PT 12.6 H (9.0-12.0) sec INR 1.3 (<1.1) APTT 23.7 (22.0-30.0) sec D-Dimer 8.78 H (<0.60) mg/L FEU Sodium (137-145) mmol/L Potassium (3.5-5.1) mmol/L Chloride (98-107) mmol/L Carbon Dioxide (22-30) mmol/L Anion Gap mmol/L BUN (9-20) mg/dL Creatinine (0.66-1.25) mg/dL Est GFR (MDRD) Af Amer (>60 ml/min/1.73 sqM) Est GFR (MDRD) Non-Af (>60 ml/min/1.73 sqM) Glucose (74-99) mg/dL Calcium (8.4-10.2) mg/dL Magnesium (1.6-2.3) mg/dL Total Bilirubin (0.2-1.3) mg/dL AST (17-59) U/L ALT (21-72) U/L Alkaline Phosphatase (38-126) U/L Total Creatine Kinase (55-170) U/L CK-MB (CK-2) (0.0-2.4) ng/mL CK-MB (CK-2) Rel Index Troponin I (0.000-0.034) ng/mL NT-Pro-B Natriuret Pep 1160 pg/mL Total Protein (6.3-8.2) g/dL Albumin (3.5-5.0) g/dL - Radiology Data Radiology results: report reviewed (I did review the imaging and report trace bilateral effusions no other acute changes), image reviewed Disposition Clinical Impression: COPD (chronic obstructive pulmonary disease), Acute respiratory distress, Hypomagnesemia Disposition: ADMITTED IP TO THIS HOSP Condition: Stable Referrals: Chito Olguin DO [Primary Care Provider] - 1-2 days
[2016-09-27] MEDS ORDERED: MAGNESIUM SULFATE-D5W PMX 1 GM in DEXTROSE/WATER 1 100ML.BAG IVPB ONE (17:00)
[2016-09-27] MEDS ORDERED: RX INFO: IV CONTRAST WAS GIVEN 1 EACH MISC MISCELLANE PRN (17:18)
[2016-09-27] MEDS ORDERED: MAG HYDROX/AL HYDROX/SIMETH 30 ML, HYOSCYAMINE ELIXIR 10 ML, CIMETIDINE HCL 300 MG PO STA ×3 (17:35)
[2016-09-27] MEDS: IPRATROPIUM-ALBUTEROL 3 ML NEB INHALATION SCH (19:17)
--- NOTE | 2016-09-27 19:35 | CT ---
EXAMINATION TYPE: CT angio chest DATE OF EXAM: 09/27/2016 7:20 PM COMPARISON: 08/07/2016 HISTORY: SOB AND WEAKNESS. CT DLP: 364.5 mGycm Automated exposure control for dose reduction was used. CONTRAST: CTA scan of the thorax is performed with IV Contrast, patient injected with 80 mL of Omnipaque 350, p ulmonary embolism protocol. There are 3-D post processed images.. FINDINGS: There is small left pleural effusion. There is some mild atelectasis at the left posterior lung base. There is an irregular 2 cm somewhat spiculated infiltrate in the anterior right middle lobe. I do no t see any significant mass component. There are multiple old healing posterior left rib fractures. There is moderate ascites fluid in the abdomen. Liver is somewhat small consistent with cirrhosis. I see no filling defects in the pulmonary arteries. There is no evidence of aortic aneurysm or dissec tion. There are no hilar masses. There is no mediastinal adenopathy. Heart size is normal. Biliary st ent is noted. Cholecystectomy is noted. There are spondylotic changes in the thoracic spine. I see no compression fracture. There is some air in the biliary tree. IMPRESSION: NO EVIDENCE OF PULMONARY EMBOLISM. ASCITES. HEPATIC CIRRHOSIS. SMALL LEFT PLEURAL EFFUSION IS SLIGHTLY INCREASED COMPARED TO LAST EXAM. RIGHT MIDDLE LOBE SPICULATED INFILTRATE IS UNCHANGED COMPARED TO LAST EXAM. I SEE NO INCREASING PULMONARY DENSITY SINCE LAST EXAM . PLEURAL REACTION AT THE POSTERIOR LUNG BASES IS INCREASED COMPARED TO LAST EXAM.
[2016-09-27] MEDS: ENOXAPARIN 100 MG/ML SYRINGE SQ SCH (22:50)
[2016-09-27] MEDS: SERTRALINE 50 MG TAB PO SCH (22:54)
[2016-09-27] MEDS: DRONABINOL 2.5 MG CAP PO SCH (22:54)
[2016-09-27 23:10] VITALS: BMI 29.0
[2016-09-27] MEDS: SODIUM CHLORIDE 0.9% 1,000 ML IV SCH (23:14)
[2016-09-27] MEDS: methylPREDNISolone SOD SUCCI 125 MG/2 ML VIAL IV SCH (23:20)
[2016-09-28] MEDS ORDERED: IPRATROPIUM-ALBUTEROL 3 ML NEB INHALATION PRN (01:26)
[2016-09-28] MEDS: SODIUM CHLORIDE 0.9% 1,000 ML IV SCH ×3 (05:23→21:37)
[2016-09-28] MEDS: methylPREDNISolone SOD SUCCI 125 MG/2 ML VIAL IV SCH ×4 (05:26→23:49)
[2016-09-28 07:36] LABS: Glucose,Whole Blood 381 mg/dL (75-99)
[2016-09-28] MEDS: PANTOPRAZOLE 40 MG TABLET PO SCH (08:21)
[2016-09-28] MEDS: ENOXAPARIN 100 MG/ML SYRINGE SQ SCH ×2 (08:21→21:37)
[2016-09-28] MEDS: INSULIN LISPRO (humaLOG) 300 UNIT/3 ML VIAL SQ SCH ×4 (08:22→21:37)
[2016-09-28] MEDS: MAGNESIUM OXIDE 400 MG TAB PO SCH (08:22)
[2016-09-28] MEDS: DRONABINOL 2.5 MG CAP PO SCH ×2 (08:22→21:36)
[2016-09-28] MEDS: INSULIN GLARGINE 100 UNIT/ML 10 ML VIAL SQ SCH (08:22)
[2016-09-28] MEDS: FUROSEMIDE 40 MG TAB PO SCH (08:22)
[2016-09-28] MEDS: TAMSULOSIN 0.4 MG CAP.ER.24H PO SCH (08:22)
[2016-09-28] MEDS: FINASTERIDE 5 MG TAB PO SCH (08:22)
[2016-09-28] MEDS: LEVOFLOXACIN 500 MG TAB PO SCH (08:22)
[2016-09-28] MEDS: IPRATROPIUM-ALBUTEROL 3 ML NEB INHALATION SCH ×5 (09:32→20:25)
[2016-09-28 10:37] LABS: Anisocytosis Slight; Basophils % (A) 0 %; CH 28.1; CHCM 30.9; Eosinophils % (A) 0 %; HCT 33.6 % (39.0-53.0); HDW 2.63; HGB 10.4 gm/dL (13.0-17.5); Hypochromasia Slight; Luc # (Auto) 0.02; Luc % (Auto) 1; Lymphocytes # (A) 0.5 k/uL (1.0-4.8); Lymphocytes % (A) 15 %; MCH 28.2 pg (25.0-35.0); MCHC 30.9 g/dL (31.0-37.0); MCV 91.3 fL (80.0-100.0); Mean Platelet Volume 8.1; Monocytes % (A) 1 %; Neutrophils # (A) 2.7 k/uL (1.3-7.7); Neutrophils % (A) 83 %; RBC 3.68 m/uL (4.30-5.90); RDW 17.2 % (11.5-15.5); WBC 3.3 k/uL (3.8-10.6); WBC (Perox) 3.46
[2016-09-28 10:51] LABS: ALT 24 U/L (21-72); AST 28 U/L (17-59); Alkaline Phosphatase 346 U/L (38-126); Anion Gap 10 mmol/L; Blood Urea Nitrogen 19 mg/dL (9-20); Calcium 8.3 mg/dL (8.4-10.2); Carbon Dioxide 22 mmol/L (22-30); Chloride 103 mmol/L (98-107); Glucose 367 mg/dL (74-99); Magnesium 1.8 mg/dL (1.6-2.3); Non-African American GFR(MDRD) 54 (>60 ml/min/1.73 sqM); Potassium 3.8 mmol/L (3.5-5.1); Sodium 135 mmol/L (137-145); Total Bilirubin 0.7 mg/dL (0.2-1.3)
[2016-09-28 11:25] LABS: Glucose,Whole Blood 356 mg/dL (75-99)
[2016-09-28 11:53] LABS: Hemoglobin A1C 6.5 % (4.2-6.1)
--- NOTE | 2016-09-28 12:22 | P.HPIM ---
History of Present Illness H&P Date: 09/28/16 Chief Complaint: Weakness Patient is a 76-year-old male, patient of Dr. Chito Olguin in the outpatient setting, with complex medical history significant for stage IV pancreatic cancer with metastasis to liver and new lung mass and right middle lobe in August of this year with history of gastric outlet obstruction status post gastrojejunostomy and recently diagnosed popliteal right leg DVT. Patient follows with Dr. Siu in the outpatient setting. Patient presented to the emergency department with complaints of bilateral leg weakness 1 day. Patient also had 2 episodes of vomiting prior to admission. No history of fevers, chills, sweats, increased shortness of breath, chest pain, or increased abdominal pain. Patient reports decreased urination without dysuria or hematuria. No history of diarrhea or constipation. Chest x-ray in the emergency department with evidence of trace bilateral effusions. CT chest with evidence of an irregular 2 cm somewhat spiculated infiltrate in the anterior right middle lobe, unchanged from previous exam. Moderate ascites fluid in the abdomen. Liver small consistent with cirrhosis. No evidence of pulmonary embolism. Small left pleural effusion slightly increased compared to last exam. No evidence of fevers. Vital signs normal. Patient 100% on room air. White count on admission 13.2. Hemoglobin 12.9. INR 1.3. D-dimer 8.78. Magnesium 1.5. AST 64. Alkaline phosphatase 489. Troponin less than 0.012. NT pro BNP 1160. Patient was admitted to the medical floor with consult to oncology. Past Medical History Past Medical History: Cancer, Heart Failure, Diabetes Mellitus, GERD/Reflux, Myocardial Infarction ([place]), Osteoarthritis (OA), Pneumonia, Prostate Disorder, Pulmonary Embolus (PE) Additional Past Medical History / Comment(s): Pt admitted 04/11/16 with gram negative bacteremia, left lower pneumonia. Other medical hx: sepsis, pancreatic CA with past IV chemo, gastric outlet obstruction, PE november 2013, [place] 2001, bilateral tinnitis, severe GERD, BPH, arthritis lower back with chronic back pain, . Last Myocardial Infarction Date:: 2001 History of Any Multi-Drug Resistant Organisms: None Reported Past Surgical History: Back Surgery, Bowel Resection, Joint Replacement Additional Past Surgical History / Comment(s): ivet filter placed november 2013;, EGD wtih biliary stenting, 07/2014 ERCP which showed previous biliary stent migration-pt had stent replaced and dilatation, colonoscopy, L subclavian mediport, R total hip replacement. "GOO" stent placedment from stomach to intestines, 04/2016 gastric bypass was done at [facility]. Past Anesthesia/Blood Transfusion Reactions: No Reported Reaction Additional Past Anesthesia/Blood Transfusion Reaction / Comment(s): Pt has never recieved blood. Past Psychological History: Depression Additional Psychological History / Comment(s): Pt states after previous admission and discharge he went to rehab for 6 weeks for strengthening. He is now back home where he lives alone. He is independent. He performs his own ADLs. He uses a walker or cane to ambulate. He drives a car. Patient uses [facility] nurse and [facility]. Smoking Status: Former smoker Past Alcohol Use History: None Reported Additional Past Alcohol Use History / Comment(s): Pt states he started smoking at age 11 (1953) and quit smoking in 1983. He states he was a 2ppd smoker. Pt states he was a past heavy drinker but has not drank in 2-3 yrs. Past Drug Use History: None Reported - Past Family History Father Family Medical History: Cancer Additional Family Medical History / Comment(s): Father at age 53 yrs of pancreatic cancer. Mother Family Medical History: No Reported History Additional Family Medical History / Comment(s): Mother lived to be 92 yrs old with no health problems known. Medications and Allergies Home Medications Medication Instructions Recorded Confirmed Type Finasteride [Proscar] 5 mg PO DAILY 04/11/16 09/27/16 History Sertraline [Zoloft] 50 mg PO HS 04/11/16 09/27/16 History Tamsulosin HCl [Flomax] 0.4 mg PO DAILY 04/11/16 09/27/16 History Magnesium Oxide [Mag-Ox] 400 mg PO DAILY 05/26/16 09/27/16 History Furosemide [Lasix] 40 mg PO DAILY 09/27/16 09/27/16 History Insulin Glargine,Hum.rec.anlog 20 unit SQ DAILY 09/27/16 09/27/16 History [Lantus Solostar] Omeprazole 40 mg PO DAILY 09/27/16 09/27/16 History Allergies Allergy/AdvReac Type Severity Reaction Status Date / Time Penicillins Allergy Itching Verified 09/27/16 15:53 Physical Exam Vitals: Vital Signs Temp Pulse Pulse Resp BP BP Pulse Ox 09/28/16 09:44 60 09/28/16 09:32 60 09/28/16 07:00 97.4 F L 67 16 130/68 100 09/27/16 23:00 96.9 F L 77 18 113/64 100 09/27/16 21:04 97.8 F 89 19 119/74 100 09/27/16 19:48 68 18 122/58 96 09/27/16 19:30 60 09/27/16 19:18 83 09/27/16 17:58 85 18 108/79 100 09/27/16 17:28 80 18 101/56 09/27/16 15:39 89 09/27/16 15:30 99 09/27/16 14:20 97.8 F 110 H 18 86/52 99 Intake and Output 09/27/16 09/28/16 09/28/16 22:59 06:59 14:59 Intake Total 540 Balance 540 Intake: Oral 540 Other: # Voids 1 1 # Bowel Movements 1 1 Weight 97 kg 95.5 kg 95.5 kg Patient Weight 09/29/16 06:59 Weight 95.5 kg GENERAL: Pt awake and alert, well-appearing, well-nourished, and in no acute distress. HEAD: Atraumatic, normocephalic. EYES: Pupils equal, round, and reactive to light, sclera anicteric, conjunctiva are normal. ENT: Moist mucous membranes. NECK:Supple without lymphadenopathy or JVD. LUNGS: Breath sounds clear to auscultation bilaterally. No wheezes, rales, or rhonchi. HEART: Heart S1, S2, no S3 or S4. Irregularly irregular. No murmurs, rubs or gallops. ABDOMEN: Soft, nontender, distended, normoactive bowel sounds. No guarding, no rebound. No masses or organomegaly appreciated. Ascites present EXTREMITIES: 2+ peripheral pulses. Right leg more edematous than left. No calf tenderness. NEUROLOGICAL: Pt oriented x 3. No focal deficits noted. Strength and sensation grossly intact. PSYCH: Normal mood, normal affect. SKIN: Warm, dry, intact. Results CBC & Chem 7: 09/28/16 10:03 09/28/16 10:03 Labs: Abnormal Lab Results - Last 24 Hours (Table) 09/27/16 09/27/16 09/27/16 Range/Units 14:46 14:46 14:46 WBC 13.2 H (3.8-10.6) k/uL RBC (4.30-5.90) m/uL Hgb 12.9 L D (13.0-17.5) gm/dL Hct (39.0-53.0) % MCHC 30.8 L (31.0-37.0) g/dL RDW 17.0 H (11.5-15.5) % Plt Count (150-450) k/uL Neutrophils # 11.8 H (1.3-7.7) k/uL Lymphocytes # 0.7 L (1.0-4.8) k/uL PT (9.0-12.0) sec D-Dimer (<0.60) mg/L FEU Sodium (137-145) mmol/L Carbon Dioxide 18 L (22-30) mmol/L Creatinine (0.66-1.25) mg/dL Glucose 184 H (74-99) mg/dL POC Glucose (mg/dL) (75-99) mg/dL Calcium (8.4-10.2) mg/dL Magnesium 1.5 L (1.6-2.3) mg/dL AST 64 H (17-59) U/L Alkaline Phosphatase 489 H (38-126) U/L Total Creatine Kinase 22 L (55-170) U/L Total Protein (6.3-8.2) g/dL Albumin 3.1 L (3.5-5.0) g/dL 09/27/16 09/28/16 09/28/16 Range/Units 14:46 07:28 10:03 WBC 3.3 L (3.8-10.6) k/uL RBC 3.68 L (4.30-5.90) m/uL Hgb 10.4 L (13.0-17.5) gm/dL Hct 33.6 L (39.0-53.0) % MCHC 30.9 L (31.0-37.0) g/dL RDW 17.2 H (11.5-15.5) % Plt Count 149 L (150-450) k/uL Neutrophils # (1.3-7.7) k/uL Lymphocytes # 0.5 L (1.0-4.8) k/uL PT 12.6 H (9.0-12.0) sec D-Dimer 8.78 H (<0.60) mg/L FEU Sodium (137-145) mmol/L Carbon Dioxide (22-30) mmol/L Creatinine (0.66-1.25) mg/dL Glucose (74-99) mg/dL POC Glucose (mg/dL) 381 H (75-99) mg/dL Calcium (8.4-10.2) mg/dL Magnesium (1.6-2.3) mg/dL AST (17-59) U/L Alkaline Phosphatase (38-126) U/L Total Creatine Kinase (55-170) U/L Total Protein (6.3-8.2) g/dL Albumin (3.5-5.0) g/dL 09/28/16 09/28/16 Range/Units 10:03 11:20 WBC (3.8-10.6) k/uL RBC (4.30-5.90) m/uL Hgb (13.0-17.5) gm/dL Hct (39.0-53.0) % MCHC (31.0-37.0) g/dL RDW (11.5-15.5) % Plt Count (150-450) k/uL Neutrophils # (1.3-7.7) k/uL Lymphocytes # (1.0-4.8) k/uL PT (9.0-12.0) sec D-Dimer (<0.60) mg/L FEU Sodium 135 L (137-145) mmol/L Carbon Dioxide (22-30) mmol/L Creatinine 1.29 H (0.66-1.25) mg/dL Glucose 367 H (74-99) mg/dL POC Glucose (mg/dL) 356 H (75-99) mg/dL Calcium 8.3 L (8.4-10.2) mg/dL Magnesium (1.6-2.3) mg/dL AST (17-59) U/L Alkaline Phosphatase 346 H (38-126) U/L Total Creatine Kinase (55-170) U/L Total Protein 6.0 L (6.3-8.2) g/dL Albumin 2.7 L (3.5-5.0) g/dL Thrombosis Risk Factor Assmnt - DVT/VTE Prophylaxis DVT/VTE Prophylaxis: Pharmacologic Prophylaxis ordered, Mechanical Prophylaxis ordered - Choose All That Apply Any of the Below Risk Factors Present?: Yes Each Factor Represents 1 point: Abnormal pulmonary function (COPD) Other Risk Factors: Yes Each Risk Factor Represents 3 Points: Age 75 years or older Thrombosis Risk Factor Assessment Total Risk Factor Score: 4 Thrombosis Risk Factor Assessment Level: Moderate Risk Assessment and Plan Plan: Impression: 1. Weakness to bilateral lower extremities, present on admission. 2. Dehydration suspect secondary to nausea and vomiting, present on admission, improved. 3. Hypomagnesemia, present on admission, improved. 4. Liver cirrhosis with evidence of moderate ascites 4. Pancreatic cancer metastasized to liver with gastric outlet obstruction status post stent placement and gastrojejunostomy. 5. Spiculated infiltrate in right middle lobe, unchanged from previous exam. 6. History of right popliteal DVT. 7. Diabetes mellitus type 2, with evidence of hyperglycemia on admission. 8. History of GERD. 9. Hyperlipidemia. 10. History of pulmonary embolism status post Ivet filter placement. 11. BPH. 13. Anemia of malignancy. 14. History of myocardial infarction. 15. History of E. coli bacteremia. 16. Chronic back pain with history of osteoarthritis. 17. History of small bowel obstruction status post bowel resection. 18. History of depression, stable. 19. Gait dysfunction. Patient uses cane or walker. 20. History of nicotine dependence. 21. History of EtOH abuse, quit approximately 3 years ago. Plan: Continue to monitor patient. Home medications of been reviewed and resumed as appropriate. Replace electrolytes. Continue IV fluids. Continue to follow with oncology service. Consult hospice per patient request. Consult physical therapy. Continue GI and DVT prophylaxis. Repeat CBC BMP magnesium in a.m. The above impression and plan have been discussed and directed by Dr. Olguin. Moo COPPOLA acting as scribe for Dr. Olguin.
[2016-09-28 16:58] LABS: Glucose,Whole Blood 345 mg/dL (75-99)
--- NOTE | 2016-09-28 17:02 | P.CONS ---
History of Present Illness - Reason for Consult Consult date: 09/28/16 metastatic pancreatic adenocarcinoma Requesting physician: Moo Hinojosa - Chief Complaint weakness - History of Present Illness Mr. Mariano is a very pleasant cuacasian male pt of Dr. Siu diagnosed with pancreatic adenocarcinoma. He was a surgical candidate but due to proximity to major vascular structures monique-adjuvant Chemotherapy was recommended with gemzar/Abraxane. He was hospitalized with cholangitis and spent 6 weeks in rehab which delayed his treatment. He was re-evaluated by Dr. Clark and not felt to be surgical candidate. October of 2014 he was admitted with cholangitis after CBD stent change. He was having tolerating the doublet chemo regimen and was changed to single agent gemzar, then dose was adjusted due to poor tolerance. He continued on treatment until Feb, imaging showed stable disease so pt decided on watchful approach. He was monitored closely with stable disease until Apr 2016. 04/21/16 he was admitted to [facility] with gastric outlet obstruction and found to have locally- recurrent pancreatic head carcinoma. He was transferred to his Surgeon Dr. Clark at [facility] where he had gastro-jeujenostomy. He was started on Xeloda Apr 2016 and took until July 2016 when he was admitted to [facility] with obstructive jaundice due to progressive pancreatic mass, CT revealed progression of liver mets. 09/15/16 he was admitted to [facility] with PEs and was taken off of Xarelto and started on Lovenox. He had been prescribed Tarceva back in July but pt had not started it as of 09/15, pt is unsure if he has taken it. Ca-19-9 on 09/15 was 30. 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 Review of Systems All systems: negative Constitutional: Reports as per HPI Past Medical History Past Medical History: Cancer, Heart Failure, Diabetes Mellitus, GERD/Reflux, Myocardial Infarction ([place]), Osteoarthritis (OA), Pneumonia, Prostate Disorder, Pulmonary Embolus (PE) Additional Past Medical History / Comment(s): Pt admitted 04/11/16 with gram negative bacteremia, left lower pneumonia. Other medical hx: sepsis, pancreatic CA with past IV chemo, gastric outlet obstruction, PE november 2013, [place] 2001, bilateral tinnitis, severe GERD, BPH, arthritis lower back with chronic back pain, . Last Myocardial Infarction Date:: 2001 History of Any Multi-Drug Resistant Organisms: None Reported Past Surgical History: Back Surgery, Bowel Resection, Joint Replacement Additional Past Surgical History / Comment(s): ivet filter placed november 2013;, EGD [facility] biliary stenting, 07/2014 ERCP which showed previous biliary stent migration-pt had stent replaced and dilatation, colonoscopy, L subclavian mediport, R total hip replacement. "GOO" stent placedment from stomach to intestines, 04/2016 gastric bypass was done at [facility]. Past Anesthesia/Blood Transfusion Reactions: No Reported Reaction Additional Past Anesthesia/Blood Transfusion Reaction / Comm: Pt has never recieved blood. Past Psychological History: Depression Additional Psychological History / Comment(s): Pt states after previous admission and discharge he went to rehab for 6 weeks for strengthening. He is now back home where he lives alone. He is independent. He performs his own ADLs. He uses a walker or cane to ambulate. He drives a car. Patient uses [facility]. Smoking Status: Former smoker Past Alcohol Use History: None Reported Additional Past Alcohol Use History / Comment(s): Pt states he started smoking at age 11 (1954) and quit smoking in 1983. He states he was a 2ppd smoker. Pt states he was a past heavy drinker but has not drank in 2-3 yrs. Past Drug Use History: None Reported - Past Family History Father Family Medical History: Cancer Additional Family Medical History / Comment(s): Father at age 53 yrs of pancreatic cancer. Mother Family Medical History: No Reported History Additional Family Medical History / Comment(s): Mother lived to be 92 yrs old with no health problems known. Medications and Allergies Home Medications Medication Instructions Recorded Confirmed Type Finasteride [Proscar] 5 mg PO DAILY 04/11/16 09/27/16 History Sertraline [Zoloft] 50 mg PO HS 04/11/16 09/27/16 History Tamsulosin HCl [Flomax] 0.4 mg PO DAILY 04/11/16 09/27/16 History Magnesium Oxide [Mag-Ox] 400 mg PO DAILY 05/26/16 09/27/16 History Furosemide [Lasix] 40 mg PO DAILY 09/27/16 09/27/16 History Insulin Glargine,Hum.rec.anlog 20 unit SQ DAILY 09/27/16 09/27/16 History [Lantus Solostar] Omeprazole 40 mg PO DAILY 09/27/16 09/27/16 History Allergies Allergy/AdvReac Type Severity Reaction Status Date / Time Penicillins Allergy Itching Verified 09/27/16 15:53 Physical Exam Vitals: Vital Signs Temp Pulse Pulse Resp BP BP Pulse Ox 09/28/16 09:44 60 09/28/16 09:32 60 09/28/16 08:00 16 09/28/16 07:00 97.4 F L 67 16 130/68 100 09/27/16 23:00 96.9 F L 77 18 113/64 100 09/27/16 21:04 97.8 F 89 19 119/74 100 09/27/16 19:48 68 18 122/58 96 09/27/16 19:30 60 09/27/16 19:18 83 09/27/16 17:58 85 18 108/79 100 09/27/16 17:28 80 18 101/56 Intake and Output 09/28/16 09/28/16 09/28/16 06:59 14:59 22:59 Intake Total 540 Balance 540 Intake: Oral 540 Other: # Voids 1 1 # Bowel Movements 1 1 Weight 95.5 kg 95.5 kg Patient Weight 09/29/16 06:59 Weight 95.5 kg - Constitutional cachetic extremities, large abdomen General appearance: cooperative, no acute distress - EENT Eyes: anicteric sclerae, PERRLA, normal appearance ENT: hearing grossly normal, normal oropharynx - Neck Neck: no lymphadenopathy - Respiratory Respiratory: bilateral: CTA - Cardiovascular Heart sounds: normal: S1, S2 Abnormal Heart Sounds: no systolic murmur, no diastolic murmur, no rub, no S3 Gallop, no S4 Gallop, no click, no other leg Peripheral Edema: bilateral: 2+ (non-pitting) - Gastrointestinal General gastrointestinal: no absent bowel sounds, no decreased bowel sounds, no distended, no hepatomegaly, no hyperactive bowel sounds, normal bowel sounds, no organomegaly, no rigid, no scaphoid, soft, no splenomegaly, no tenderness, no umbilical hernia, no ventral hernia - Integumentary Integumentary: pale - Neurologic Neurologic: CNII-XII intact - Musculoskeletal Musculoskeletal: generalized weakness, strength equal bilaterally - Psychiatric Psychiatric: A&O x's 3, appropriate affect, intact judgment & insight Results CBC & Chem 7: 09/28/16 10:03 09/28/16 10:03 Labs: Abnormal Lab Results - Last 24 Hours (Table) 09/27/16 09/28/16 09/28/16 Range/Units 14:46 07:28 10:03 WBC 13.2 H (3.8-10.6) k/uL RBC (4.30-5.90) m/uL Hgb 12.9 L D (13.0-17.5) gm/dL Hct (39.0-53.0) % MCHC 30.8 L (31.0-37.0) g/dL RDW 17.0 H (11.5-15.5) % Plt Count (150-450) k/uL Neutrophils # 11.8 H (1.3-7.7) k/uL Lymphocytes # 0.7 L (1.0-4.8) k/uL Sodium (137-145) mmol/L Creatinine (0.66-1.25) mg/dL Glucose (74-99) mg/dL POC Glucose (mg/dL) 381 H (75-99) mg/dL Hemoglobin A1c 6.5 H (4.2-6.1) % Calcium (8.4-10.2) mg/dL Alkaline Phosphatase (38-126) U/L Total Protein (6.3-8.2) g/dL Albumin (3.5-5.0) g/dL 09/28/16 09/28/16 09/28/16 Range/Units 10:03 10:03 11:20 WBC 3.3 L (3.8-10.6) k/uL RBC 3.68 L (4.30-5.90) m/uL Hgb 10.4 L (13.0-17.5) gm/dL Hct 33.6 L (39.0-53.0) % MCHC 30.9 L (31.0-37.0) g/dL RDW 17.2 H (11.5-15.5) % Plt Count 149 L (150-450) k/uL Neutrophils # (1.3-7.7) k/uL Lymphocytes # 0.5 L (1.0-4.8) k/uL Sodium 135 L (137-145) mmol/L Creatinine 1.29 H (0.66-1.25) mg/dL Glucose 367 H (74-99) mg/dL POC Glucose (mg/dL) 356 H (75-99) mg/dL Hemoglobin A1c (4.2-6.1) % Calcium 8.3 L (8.4-10.2) mg/dL Alkaline Phosphatase 346 H (38-126) U/L Total Protein 6.0 L (6.3-8.2) g/dL Albumin 2.7 L (3.5-5.0) g/dL CT scan - chest: report reviewed Assessment and Plan (1) Pancreatic cancer metastasized to liver Narrative/Plan: Pt was recently seen by Dr. Siu with plans-if pt chose-to try oral Tarceva, pt does not think he has been taking. Pt states that he has inquired about hospice and has information. He has a sched f/u with Dr. Siu next week and he can make decisions regarding how he would like to proceed at that time or if he and his family make decisions he can transition to hospice from here. Status: Chronic (2) Pancytopenia Narrative/Plan: Overall stable counts, likely secondary to history of chemo and malignancy. ANC is adequate, Hgb not requiring transfusion, platelets adequate to continue anticoagulation. Status: Chronic
[2016-09-28 21:04] LABS: Glucose,Whole Blood 311 mg/dL (75-99)
[2016-09-28] MEDS: SERTRALINE 50 MG TAB PO SCH (21:36)
[2016-09-29] MEDS: methylPREDNISolone SOD SUCCI 125 MG/2 ML VIAL IV SCH (06:46)
[2016-09-29 07:49] LABS: Glucose,Whole Blood 241 mg/dL (75-99)
[2016-09-29] MEDS: MAGNESIUM OXIDE 400 MG TAB PO SCH (08:12)
[2016-09-29] MEDS: TAMSULOSIN 0.4 MG CAP.ER.24H PO SCH (08:12)
[2016-09-29] MEDS: ENOXAPARIN 100 MG/ML SYRINGE SQ SCH (08:12)
[2016-09-29] MEDS: FUROSEMIDE 40 MG TAB PO SCH (08:12)
[2016-09-29] MEDS: FINASTERIDE 5 MG TAB PO SCH (08:12)
[2016-09-29] MEDS: LEVOFLOXACIN 500 MG TAB PO SCH (08:12)
[2016-09-29] MEDS: INSULIN GLARGINE 100 UNIT/ML 10 ML VIAL SQ SCH (08:12)
[2016-09-29] MEDS: SODIUM CHLORIDE 0.9% 1,000 ML IV SCH (08:13)
[2016-09-29] MEDS: PANTOPRAZOLE 40 MG TABLET PO SCH (08:13)
[2016-09-29] MEDS: DRONABINOL 2.5 MG CAP PO SCH (08:16)
[2016-09-29] MEDS: INSULIN LISPRO (humaLOG) 300 UNIT/3 ML VIAL SQ SCH ×2 (08:16→13:02)
[2016-09-29 08:36] VITALS: RESP 16
[2016-09-29 10:23] LABS: Anion Gap 9 mmol/L; Blood Urea Nitrogen 24 mg/dL (9-20); Calcium 8.4 mg/dL (8.4-10.2); Carbon Dioxide 22 mmol/L (22-30); Chloride 104 mmol/L (98-107); Glucose 251 mg/dL (74-99); Magnesium 1.8 mg/dL (1.6-2.3); Non-African American GFR(MDRD) >60 (>60 ml/min/1.73 sqM); Potassium 3.6 mmol/L (3.5-5.1); Sodium 135 mmol/L (137-145)
[2016-09-29 10:29] LABS: Anisocytosis Slight; Basophils % (A) 0 %; CHCM 30.7; Eosinophils % (A) 0 %; HCT 31.2 % (39.0-53.0); HDW 2.58; HGB 10.2 gm/dL (13.0-17.5); Hypochromasia Moderate; Luc # (Auto) 0.03; Luc % (Auto) 1; Lymphocytes # (A) 0.3 k/uL (1.0-4.8); Lymphocytes % (A) 6 %; MCH 29.7 pg (25.0-35.0); MCHC 32.5 g/dL (31.0-37.0); MCV 91.4 fL (80.0-100.0); Monocytes # (A) 0.2 k/uL (0-1.0); Monocytes % (A) 4 %; Neutrophils # (A) 4.3 k/uL (1.3-7.7); Neutrophils % (A) 89 %; RBC 3.42 m/uL (4.30-5.90); RDW 17.1 % (11.5-15.5); WBC 4.8 k/uL (3.8-10.6); WBC (Perox) 5.08
[2016-09-29] MEDS: IPRATROPIUM-ALBUTEROL 3 ML NEB INHALATION SCH ×2 (11:02→14:58)
[2016-09-29 11:39] LABS: Glucose,Whole Blood 233 mg/dL (75-99)
--- NOTE | 2016-09-29 14:21 | P.DS ---
Providers Date of admission: 09/27/16 17:19 Expected date of discharge: 09/29/16 Attending physician: Chito Olguin Consults: 09/28/16 09:12 Consult Physician Urgent Consulting Provider: Frank Huynh Consult Reason/Comments: pancreatic cancer Do you want consulting provider notified?: Yes Primary care physician: Chito Olguin [facility] Course: Patient is a 76-year-old male, patient of Dr. Chito Olguin in the outpatient setting, with complex medical history significant for stage IV pancreatic cancer with metastasis to liver and new lung mass in right middle lobe in August of this year with history of gastric outlet obstruction status post gastrojejunostomy and recently diagnosed popliteal right leg DVT. Patient follows with Dr. Siu in the outpatient setting. Patient presented to the emergency department with complaints of bilateral leg weakness 1 day and increased shortness of breath. Patient also had 2 episodes of vomiting prior to admission. Chest x-ray in the emergency department with evidence of trace bilateral effusions. CT chest with evidence of an irregular 2 cm somewhat spiculated infiltrate in the anterior right middle lobe, unchanged from previous exam. Moderate ascites fluid in the abdomen. Liver small consistent with cirrhosis. No evidence of pulmonary embolism. Small left pleural effusion slightly increased compared to last exam. No evidence of fevers. Vital signs normal. Patient 100% on room air. White count on admission 13.2. Hemoglobin 12.9. INR 1.3. D-dimer 8.78. Magnesium 1.5. AST 64. Alkaline phosphatase 489. Troponin less than 0.012. NT pro BNP 1160. Patient was admitted with the impression of dehydration and exacerbation of COPD. Oncology service was consulted. Patient improved with antibiotics, steroids, IV hydration, electrolyte replacement, and physical therapy. Patient was felt stable for discharge to home with home care and physical therapy. Patient will follow-up with Dr. Olguin and Dr. Siu in the outpatient setting. Discharge diagnoses: 1. Weakness to bilateral lower extremities, present on admission. 2. Dehydration suspect secondary to nausea and vomiting, present on admission, improved. 3. Hypomagnesemia, present on admission, improved. 4. Liver cirrhosis with evidence of moderate ascites 4. Pancreatic cancer metastasized to liver with gastric outlet obstruction status post stent placement and gastrojejunostomy. 5. Spiculated infiltrate in right middle lobe, unchanged from previous exam. 6. History of right popliteal DVT. 7. Diabetes mellitus type 2, with evidence of hyperglycemia on admission. 8. History of GERD. 9. Hyperlipidemia. 10. History of pulmonary embolism status post [place] filter placement. 11. BPH. 13. Anemia of malignancy. 14. History of myocardial infarction. 15. History of E. coli bacteremia. 16. Chronic back pain with history of osteoarthritis. 17. History of small bowel obstruction status post bowel resection. 18. History of depression, stable. 19. Gait dysfunction. Patient uses cane or walker. 20. History of nicotine dependence. 21. History of EtOH abuse, quit approximately 3 years ago. The above impression and plan have been discussed and directed by Dr. Olguin. Moo WOLF-Bhaskar acting as scribe for Dr. Olguin. Pertinent Studies: Chest x-ray; chest CTA Patient Condition at Discharge: Good Plan - Discharge Summary New Discharge Prescriptions: Levofloxacin [Levaquin] 500 mg PO Q24H #5 tab predniSONE 0 mg PO DIRECTED #30 tab Discharge Medication List Finasteride [Proscar] 5 mg PO DAILY 04/11/16 [History] Sertraline [Zoloft] 50 mg PO HS 04/11/16 [History] Tamsulosin HCl [Flomax] 0.4 mg PO DAILY 04/11/16 [History] Magnesium Oxide [Mag-Ox] 400 mg PO DAILY 05/26/16 [History] Dronabinol [Marinol] 2.5 mg PO BID #30 capsule 08/09/16 [Rx] Enoxaparin [Lovenox] 100 mg SQ Q12HR #30 syringe 08/09/16 [Rx] Furosemide [Lasix] 40 mg PO DAILY 09/27/16 [History] Insulin Glargine,Hum.rec.anlog [Lantus Solostar] 20 unit SQ DAILY 09/27/16 [ History] Omeprazole 40 mg PO DAILY 09/27/16 [History] Levofloxacin [Levaquin] 500 mg PO Q24H #5 tab 09/29/16 [Rx] predniSONE 0 mg PO DIRECTED #30 tab 09/29/16 [Rx] Follow up Appointment(s)/Referral(s): Chito Olguin DO [Primary Care Provider] - 10/04/16 4:00 pm [facility], [NON-STAFF] - As Needed Coy Siu MD [STAFF PHYSICIAN] - 06/01/17 (Office closed, please call for appointment. ) Patient Instructions/Handouts: Heart Failure (DC), COPD (Chronic Obstructive Pulmonary Disease) (DC) Activity/Diet/Wound Care/Special Instructions: Residential home care: #[phone] Cardiac, diabetic diet. Discharge Disposition: HOME WITH HOME HEALTH SERVICES
[2016-09-29 15:19] VITALS: BP 115/59; PULSE 72; TEMP 97
[2016-09-29] MEDS ORDERED: methylPREDNISolone SOD SUCCI 40 MG/ML 1 ML VIAL IV SCH (16:00)
== END 2016-09-29 16:27 | disposition home health service (06) | DRG 640 ==
LOC: EC 14:03 → 4MS4W 17:19
PROVIDERS: ADMIT Family Medicine; ATTEND Family Medicine
DX: E86.0 Dehydration (principal); D61.810 Antineoplastic chemotherapy induced pancytopenia; R64 Cachexia; C78.7 Secondary malignant neoplasm of liver and intrahepatic bile duct; E11.65 Type 2 diabetes mellitus with hyperglycemia; R18.8 Other ascites; C25.9 Malignant neoplasm of pancreas, unspecified; J44.1 Chronic obstructive pulmonary disease with (acute) exacerbation; E83.42 Hypomagnesemia; I50.9 Heart failure, unspecified; K74.60 Unspecified cirrhosis of liver; D63.0 Anemia in neoplastic disease; R11.2 Nausea with vomiting, unspecified; R91.8 Other nonspecific abnormal finding of lung field; R53.1 Weakness; R26.9 Unspecified abnormalities of gait and mobility; F32.9 Major depressive disorder, single episode, unspecified; G89.29 Other chronic pain; K21.9 Gastro-esophageal reflux disease without esophagitis; E78.5 Hyperlipidemia, unspecified; T45.1X5A Adverse effect of antineoplastic and immunosuppressive drugs, initial encounter; M47.816 Spondylosis without myelopathy or radiculopathy, lumbar region; N40.0 Benign prostatic hyperplasia without lower urinary tract symptoms; I25.2 Old myocardial infarction; Z86.711 Personal history of pulmonary embolism; Z86.718 Personal history of other venous thrombosis and embolism; Z87.891 Personal history of nicotine dependence; Z79.899 Other long term (current) drug therapy; Z80.0 Family history of malignant neoplasm of digestive organs; Z92.21 Personal history of antineoplastic chemotherapy; Z96.641 Presence of right artificial hip joint; Z88.0 Allergy status to penicillin; Z87.01 Personal history of pneumonia (recurrent); Z86.19 Personal history of other infectious and parasitic diseases; Z87.19 Personal history of other diseases of the digestive system; Z79.4 Long term (current) use of insulin; Z90.49 Acquired absence of other specified parts of digestive tract; Z95.828 Presence of other vascular implants and grafts; Z86.69 Personal history of other diseases of the nervous system and sense organs
CPT/HCPCS: 36415; 71020; 71275; 80048; 80053; 82550; 82553; 83036; 83735; 83880; 84484; 85025; 85379; 85610; 85730; 94640

== ENCOUNTER 2016-10-01 23:04 | Inpatient (IN) | payer MEDICARE, BC ==
[2016-10-01] MEDS ORDERED: SODIUM CHLORIDE 0.9% 500 ML IV STA (23:12)
[2016-10-01] MEDS ORDERED: SODIUM CHLORIDE 0.9% 1,000 ML IV STA (23:12)
--- NOTE | 2016-10-01 23:15 | ED ---
Nausea/Vomiting/Diarrhea HPI - General Chief complaint: Nausea/Vomiting/Diarrhea Stated complaint: Nausea/Vomiting Time Seen by Provider: 10/01/16 23:04 Source: patient, EMS, RN notes reviewed, old records reviewed Mode of arrival: EMS - History of Present Illness Initial comments: This is a 76-year-old male who was just discharged from the hospital yesterday for COPD exacerbation who presents today with complaints of generalized weakness that has progressed over last 11 hours with some shakiness. The sclerae of nausea vomiting 2 before he came in tonight. He states he is chronically short of breath with exertional dyspnea. He just feels generally weak and cannot ambulate he states because of the weakness. He denies any chest pain or palpitations or other symptoms at this time. MD complaint: nausea, vomiting, other - Related Data Home Medications Medication Instructions Recorded Confirmed Finasteride [Proscar] 5 mg PO DAILY 04/11/16 09/27/16 Sertraline [Zoloft] 50 mg PO HS 04/11/16 09/27/16 Tamsulosin HCl [Flomax] 0.4 mg PO DAILY 04/11/16 09/27/16 Magnesium Oxide [Mag-Ox] 400 mg PO DAILY 05/26/16 09/27/16 Furosemide [Lasix] 40 mg PO DAILY 09/27/16 09/27/16 Insulin Glargine,Hum.rec.anlog 20 unit SQ DAILY 09/27/16 09/27/16 [Lantus Solostar] Omeprazole 40 mg PO DAILY 09/27/16 09/27/16 Previous Rx's Medication Instructions Recorded Dronabinol [Marinol] 2.5 mg PO BID #30 capsule 08/09/16 Enoxaparin [Lovenox] 100 mg SQ Q12HR #30 syringe 08/09/16 Levofloxacin [Levaquin] 500 mg PO Q24H #5 tab 09/29/16 predniSONE 0 mg PO DIRECTED #30 tab 09/29/16 Allergies Allergy/AdvReac Type Severity Reaction Status Date / Time Penicillins Allergy Itching Verified 09/27/16 15:53 Review of Systems ROS Statement: Those systems with pertinent positive or pertinent negative responses have been documented in the HPI. ROS Other: All systems not noted in ROS Statement are negative. Past Medical History Past Medical History: Cancer, Heart Failure, Diabetes Mellitus, GERD/Reflux, Myocardial Infarction (MT), Osteoarthritis (OA), Pneumonia, Prostate Disorder, Pulmonary Embolus (PE) Additional Past Medical History / Comment(s): Pt admitted 04/11/16 with gram negative bacteremia, left lower pneumonia. Other medical hx: sepsis, pancreatic CA with past IV chemo, gastric outlet obstruction, PE november 2013, MT 2001, bilateral tinnitis, severe GERD, BPH, arthritis lower back with chronic back pain, . Last Myocardial Infarction Date:: 2001 History of Any Multi-Drug Resistant Organisms: None Reported Past Surgical History: Back Surgery, Bowel Resection, Joint Replacement Additional Past Surgical History / Comment(s): ivet filter placed november 2013;, EGD wtih biliary stenting, 07/2014 ERCP which showed previous biliary stent migration-pt had stent replaced and dilatation, colonoscopy, L subclavian mediport, R total hip replacement. "GOO" stent placedment from stomach to intestines, 04/2016 gastric bypass [facility] at [facility]. Past Anesthesia/Blood Transfusion Reactions: No Reported Reaction Additional Past Anesthesia/Blood Transfusion Reaction / Comment(s): Pt has never recieved blood. Past Psychological History: Depression Additional Psychological History / Comment(s): Pt states after previous admission and discharge he went to rehab for 6 weeks for strengthening. He is now back home where he lives alone. He is independent. He performs his own ADLs. He uses a walker or cane to ambulate. He drives a car. Patient uses Homecare nurse and home physical therapy-states thru [facility]. Smoking Status: Former smoker Past Alcohol Use History: None Reported Additional Past Alcohol Use History / Comment(s): Pt states he started smoking at age 11 (1952) and quit smoking in 1983. He states he was a 2ppd smoker. Pt states he was a past heavy drinker but has not drank in 2-3 yrs. Past Drug Use History: None Reported - Past Family History Father Family Medical History: Cancer Additional Family Medical History / Comment(s): Father at age 53 yrs of pancreatic cancer. Mother Family Medical History: No Reported History Additional Family Medical History / Comment(s): Mother lived to be 92 yrs old with no health problems known. General Exam - General Exam Comments Initial Comments: This is a well-developed well-nourished awake alert oriented times 3 male General appearance: alert, in no apparent distress Head exam: Present: atraumatic, normocephalic, normal inspection Eye exam: Present: normal appearance, PERRL, EOMI. Absent: scleral icterus, conjunctival injection, periorbital swelling ENT exam: Present: mucous membranes dry Neck exam: Present: normal inspection. Absent: tenderness, meningismus, lymphadenopathy Respiratory exam: Present: decreased breath sounds. Absent: respiratory distress, wheezes, rales, rhonchi, stridor Cardiovascular Exam: Present: irregular rhythm. Absent: systolic murmur, diastolic murmur, rubs, gallop, clicks GI/Abdominal exam: Present: soft, normal bowel sounds. Absent: distended, tenderness, guarding, rebound, rigid Extremities exam: Present: full ROM, normal capillary refill, pedal edema. Absent: tenderness, joint swelling, calf tenderness Back exam: Present: normal inspection Neurological exam: Present: alert, oriented X3, CN II-XII intact Psychiatric exam: Present: normal affect, normal mood Skin exam: Present: warm, dry, intact, normal color. Absent: rash Course Vital Signs 10/01/16 23:09 Temperature 96.8 F L Pulse Rate 73 Respiratory 20 Rate Blood Pressure 104/59 O2 Sat by Pulse 98 Oximetry Medical Decision Making - Medical Decision Making I did discuss findings with the patient he is still feeling very weak he will be readmitted to the hospital. - Lab Data Result diagrams: 10/01/16 23:23 10/01/16 23:23 Lab Results 10/01/16 10/01/16 10/01/16 Range/Units 23:23 23:23 23:23 WBC (3.8-10.6) k/uL RBC (4.30-5.90) m/uL Hgb (13.0-17.5) gm/dL Hct (39.0-53.0) % MCV (80.0-100.0) fL MCH (25.0-35.0) pg MCHC (31.0-37.0) g/dL RDW (11.5-15.5) % Plt Count (150-450) k/uL Neutrophils % % Lymphocytes % % Monocytes % % Eosinophils % % Basophils % % Neutrophils # (1.3-7.7) k/uL Lymphocytes # (1.0-4.8) k/uL Monocytes # (0-1.0) k/uL Eosinophils # (0-0.7) k/uL Basophils # (0-0.2) k/uL Hypochromasia Anisocytosis Sodium 139 (137-145) mmol/L Potassium 3.8 (3.5-5.1) mmol/L Chloride 102 (98-107) mmol/L Carbon Dioxide 21 L (22-30) mmol/L Anion Gap 16 mmol/L BUN 23 H (9-20) mg/dL Creatinine 1.10 (0.66-1.25) mg/dL Est GFR (MDRD) Af Amer >60 (>60 ml/min/1.73 sqM) Est GFR (MDRD) Non-Af >60 (>60 ml/min/1.73 sqM) Glucose 179 H (74-99) mg/dL Calcium 9.3 (8.4-10.2) mg/dL Magnesium 1.5 L (1.6-2.3) mg/dL Total Bilirubin 0.8 (0.2-1.3) mg/dL AST 23 (17-59) U/L ALT 23 (21-72) U/L Alkaline Phosphatase 322 H (38-126) U/L Total Creatine Kinase <20 L (55-170) U/L CK-MB (CK-2) 0.8 (0.0-2.4) ng/mL CK-MB (CK-2) Rel Index 0.0 NT-Pro-B Natriuret Pep 3710 pg/mL Total Protein 6.4 (6.3-8.2) g/dL Albumin 3.1 L (3.5-5.0) g/dL Amylase 31 (30-110) U/L Lipase 12 L (23-300) U/L Urine Color Urine Appearance (Clear) Urine pH (5.0-8.0) Ur Specific Star (1.001-1.035) Urine Protein (Negative) Urine Glucose (UA) (Negative) Urine Ketones (Negative) Urine Blood (Negative) Urine Nitrite (Negative) Urine Bilirubin (Negative) Urine Urobilinogen (<2.0) mg/dL Ur Leukocyte Esterase (Negative) Urine RBC (0-5) /hpf Urine WBC (0-5) /hpf Ur Squamous Epith Cells (0-4) /hpf Urine Mucus (None) /hpf Urine Yeast (Budding) (None) /hpf 10/01/16 10/01/16 Range/Units 23:23 23:23 WBC 9.6 (3.8-10.6) k/uL RBC 4.71 (4.30-5.90) m/uL Hgb 13.0 (13.0-17.5) gm/dL Hct 41.9 (39.0-53.0) % MCV 88.8 (80.0-100.0) fL MCH 27.6 (25.0-35.0) pg MCHC 31.1 (31.0-37.0) g/dL RDW 17.0 H (11.5-15.5) % Plt Count 187 (150-450) k/uL Neutrophils % 93 % Lymphocytes % 4 % Monocytes % 2 % Eosinophils % 1 % Basophils % 0 % Neutrophils # 9.0 H (1.3-7.7) k/uL Lymphocytes # 0.4 L (1.0-4.8) k/uL Monocytes # 0.2 (0-1.0) k/uL Eosinophils # 0.1 (0-0.7) k/uL Basophils # 0.0 (0-0.2) k/uL Hypochromasia Slight Anisocytosis Slight Sodium (137-145) mmol/L Potassium (3.5-5.1) mmol/L Chloride (98-107) mmol/L Carbon Dioxide (22-30) mmol/L Anion Gap mmol/L BUN (9-20) mg/dL Creatinine (0.66-1.25) mg/dL Est GFR (MDRD) Af Amer (>60 ml/min/1.73 sqM) Est GFR (MDRD) Non-Af (>60 ml/min/1.73 sqM) Glucose (74-99) mg/dL Calcium (8.4-10.2) mg/dL Magnesium (1.6-2.3) mg/dL Total Bilirubin (0.2-1.3) mg/dL AST (17-59) U/L ALT (21-72) U/L Alkaline Phosphatase (38-126) U/L Total Creatine Kinase (55-170) U/L CK-MB (CK-2) (0.0-2.4) ng/mL CK-MB (CK-2) Rel Index NT-Pro-B Natriuret Pep pg/mL Total Protein (6.3-8.2) g/dL Albumin (3.5-5.0) g/dL Amylase (30-110) U/L Lipase (23-300) U/L Urine Color Yellow Urine Appearance Clear (Clear) Urine pH 5.5 (5.0-8.0) Ur Specific Star 1.012 (1.001-1.035) Urine Protein Negative (Negative) Urine Glucose (UA) Negative (Negative) Urine Ketones Negative (Negative) Urine Blood Negative (Negative) Urine Nitrite Negative (Negative) Urine Bilirubin Negative (Negative) Urine Urobilinogen <2.0 (<2.0) mg/dL Ur Leukocyte Esterase Moderate H (Negative) Urine RBC 1 (0-5) /hpf Urine WBC 26 H (0-5) /hpf Ur Squamous Epith Cells <1 (0-4) /hpf Urine Mucus Rare H (None) /hpf Urine Yeast (Budding) Moderate H (None) /hpf - EKG Data -: EKG Interpreted by [place] EKG shows normal: sinus rhythm (Sinus rhythm with [place] [address] QRS duration 122 QT/QTC of 4/467 this is compared to an EKG dated 08/07/16 showing no QT changes except for the rate) - Radiology Data Radiology results: report reviewed (I did review the imaging and report no acute findings her heart trace pleural effusions bilaterally no major change from the previous x-ray.), image reviewed Disposition Clinical Impression: Dehydration, Hypomagnesemia, Failure to thrive Disposition: ADMITTED IP TO THIS [facility] Condition: Stable Referrals: Chito Olguin DO [Primary Care Provider] - 1-2 days
[2016-10-01 23:39] LABS: Anisocytosis Slight; Basophils % (A) 0 %; CH 27.6; CHCM 31.2; Eosinophils # (A) 0.1 k/uL (0-0.7); Eosinophils % (A) 1 %; HCT 41.9 % (39.0-53.0); HDW 2.82; Hypochromasia Slight; Luc # (Auto) 0.02; Luc % (Auto) 0; Lymphocytes # (A) 0.4 k/uL (1.0-4.8); Lymphocytes % (A) 4 %; MCH 27.6 pg (25.0-35.0); MCHC 31.1 g/dL (31.0-37.0); MCV 88.8 fL (80.0-100.0); Mean Platelet Volume 7.7; Monocytes # (A) 0.2 k/uL (0-1.0); Monocytes % (A) 2 %; Neutrophils % (A) 93 %; RBC 4.71 m/uL (4.30-5.90); WBC 9.6 k/uL (3.8-10.6); WBC (Perox) 9.84
[2016-10-01 23:42] LABS: Appearance,Urine Clear (Clear); Bilirubin,Urine Negative (Negative); Glucose,Urine (UA) Negative (Negative); Ketones,Urine Negative (Negative); Leukocyte Esterase,Urine Moderate (Negative); Mucus,Urine Rare /hpf; Nitrite,Urine Negative (Negative); PH, Urine 5.5 (5.0-8.0); Particle Count 1626; Protein,Urine Negative (Negative); RBC,Urine 1 /hpf (0-5); Specific Gravity,Urine 1.012 (1.001-1.035); Squamous Epithelial Cell,Urine <1 /hpf (0-4); UA Billing (MACRO vs. MICRO) MICRO; Urobilinogen,Urine <2.0 mg/dL (<2.0); WBC,Urine 26 /hpf (0-5)
[2016-10-01 23:49] LABS: ALT 23 U/L (21-72); AST 23 U/L (17-59); Alkaline Phosphatase 322 U/L (38-126); Amylase 31 U/L (30-110); Anion Gap 16 mmol/L; Blood Urea Nitrogen 23 mg/dL (9-20); Calcium 9.3 mg/dL (8.4-10.2); Carbon Dioxide 21 mmol/L (22-30); Chloride 102 mmol/L (98-107); Glucose 179 mg/dL (74-99); Magnesium 1.5 mg/dL (1.6-2.3); Non-African American GFR(MDRD) >60 (>60 ml/min/1.73 sqM); Potassium 3.8 mmol/L (3.5-5.1); Sodium 139 mmol/L (137-145); Total Bilirubin 0.8 mg/dL (0.2-1.3); Total Protein 6.4 g/dL (6.3-8.2)
--- NOTE | 2016-10-01 23:59 | XR ---
EXAM: XR Chest, 2 Views CLINICAL HISTORY: Reason: cough TECHNIQUE: Frontal and lateral views of the chest. COMPARISON: 09/27/16. FINDINGS: Lungs: Interstitial prominence, unchanged. Pleural space: Trace bilateral pleural effusions. Heart: Stable cardiomediastinal silhouette. Mediastinum: See above. Bones/joints: Unremarkable. Tubes, lines and devices: Left chest port catheter with the tip in the SVC. IMPRESSION: Trace bilateral pleural effusions. Overall no significant change.
[2016-10-02] LABS: Creatine Kinase <20 U/L (55-170)
[2016-10-02 00:10] LABS: Creatine Kinase MB 0.8 ng/mL (0.0-2.4)
[2016-10-02] MEDS ORDERED: MAGNESIUM SULFATE-D5W PMX 1 GM in DEXTROSE/WATER 1 100ML.BAG IVPB ONE (00:13)
--- NOTE | 2016-10-02 00:34 | XR ---
EXAM: XR Abdomen Complete, 2 or More Views CLINICAL HISTORY: Reason: Pain TECHNIQUE: Frontal view of the abdomen/pelvis with upright view of the abdomen. COMPARISON: 03/14/16. FINDINGS: Intraperitoneal space: No free air. Gastrointestinal tract: Nonspecific bowel gas pattern. Bones/joints: Osseous degenerative changes. Other: Right upper quadrant surgical clips and stent, IVC filter, and right hip prosthesis. IMPRESSION: Nonspecific bowel gas pattern.
[2016-10-02] MEDS ORDERED: NALOXONE 0.4 MG/ML 1 ML VIAL IV PRN (00:42)
[2016-10-02] MEDS ORDERED: LEVOFLOXACIN 500 MG TAB PO ONE (00:45)
[2016-10-02 02:53] LABS: Glucose,Whole Blood 207 mg/dL (75-99)
[2016-10-02 07:34] LABS: Glucose,Whole Blood 231 mg/dL (75-99)
[2016-10-02] MEDS: FINASTERIDE 5 MG TAB PO SCH (08:59)
[2016-10-02] MEDS: MAGNESIUM OXIDE 400 MG TAB PO SCH (08:59)
[2016-10-02] MEDS: PANTOPRAZOLE 40 MG TABLET PO SCH (08:59)
[2016-10-02] MEDS: INSULIN GLARGINE 100 UNIT/ML 10 ML VIAL SQ SCH (08:59)
[2016-10-02] MEDS: ENOXAPARIN 100 MG/ML SYRINGE SQ SCH ×2 (08:59→21:20)
[2016-10-02] MEDS: DRONABINOL 2.5 MG CAP PO SCH ×2 (08:59→21:26)
[2016-10-02] MEDS: FUROSEMIDE 40 MG TAB PO SCH (08:59)
[2016-10-02 11:09] LABS: Hemoglobin A1C 6.7 % (4.2-6.1)
[2016-10-02 12:36] LABS: Glucose,Whole Blood 218 mg/dL (75-99)
[2016-10-02] MEDS: INSULIN LISPRO (humaLOG) 300 UNIT/3 ML VIAL SQ SCH ×3 (13:26→21:21)
[2016-10-02] MEDS: TAMSULOSIN 0.4 MG CAP.ER.24H PO SCH (13:27)
[2016-10-02 17:17] LABS: Glucose,Whole Blood 169 mg/dL (75-99)
[2016-10-02] MEDS ORDERED: HYDROcodone/APAP 5-325MG 1 EACH TAB PO PRN (17:45)
[2016-10-02] MEDS ORDERED: HYDROmorphone 1 MG/ML 1 ML SYRINGE IVP PRN (17:45)
[2016-10-02 20:57] LABS: Glucose,Whole Blood 108 mg/dL (75-99)
[2016-10-02] MEDS: SERTRALINE 50 MG TAB PO SCH (21:20)
[2016-10-02] MEDS: MELATONIN 3 MG TABLET PO SCH (21:20)
[2016-10-02] MEDS: LEVOFLOXACIN 500MG-D5W PMX 500 MG in DEXTROSE/WATER 1 100ML.BAG IVPB SCH (21:21)
[2016-10-02] MEDS ORDERED: LEVOFLOXACIN 500 MG TAB PO SCH (23:00)
[2016-10-03 07:24] LABS: Anisocytosis Slight; Basophils % (A) 0 %; CH 27.9; CHCM 30.8; Eosinophils # (A) 0.1 k/uL (0-0.7); Eosinophils % (A) 3 %; HCT 34.3 % (39.0-53.0); HDW 2.66; HGB 10.3 gm/dL (13.0-17.5); Hypochromasia Moderate; Luc # (Auto) 0.04; Luc % (Auto) 1; Lymphocytes # (A) 0.9 k/uL (1.0-4.8); Lymphocytes % (A) 23 %; MCH 27.1 pg (25.0-35.0); MCHC 29.9 g/dL (31.0-37.0); MCV 90.6 fL (80.0-100.0); Mean Platelet Volume 8.4; Monocytes # (A) 0.2 k/uL (0-1.0); Monocytes % (A) 5 %; Neutrophils # (A) 2.7 k/uL (1.3-7.7); Neutrophils % (A) 68 %; RBC 3.79 m/uL (4.30-5.90); RDW 17.1 % (11.5-15.5); WBC 3.9 k/uL (3.8-10.6); WBC (Perox) 4.18
[2016-10-03 07:30] LABS: Glucose,Whole Blood 143 mg/dL (75-99)
[2016-10-03 07:32] LABS: ALT 23 U/L (21-72); AST 17 U/L (17-59); Alkaline Phosphatase 218 U/L (38-126); Anion Gap 6 mmol/L; Blood Urea Nitrogen 19 mg/dL (9-20); Calcium 7.9 mg/dL (8.4-10.2); Carbon Dioxide 26 mmol/L (22-30); Chloride 105 mmol/L (98-107); Glucose 146 mg/dL (74-99); Magnesium 1.6 mg/dL (1.6-2.3); Non-African American GFR(MDRD) >60 (>60 ml/min/1.73 sqM); Potassium 3.5 mmol/L (3.5-5.1); Sodium 137 mmol/L (137-145); Total Bilirubin 0.5 mg/dL (0.2-1.3); Total Protein 5.1 g/dL (6.3-8.2)
[2016-10-03] MEDS: TAMSULOSIN 0.4 MG CAP.ER.24H PO SCH (08:01)
[2016-10-03] MEDS: INSULIN LISPRO (humaLOG) 300 UNIT/3 ML VIAL SQ SCH ×4 (08:01→20:55)
[2016-10-03] MEDS: ENOXAPARIN 100 MG/ML SYRINGE SQ SCH ×2 (08:01→20:55)
[2016-10-03] MEDS: INSULIN GLARGINE 100 UNIT/ML 10 ML VIAL SQ SCH (08:01)
[2016-10-03] MEDS: PANTOPRAZOLE 40 MG TABLET PO SCH (08:02)
[2016-10-03] MEDS: MAGNESIUM OXIDE 400 MG TAB PO SCH (08:02)
[2016-10-03] MEDS: FUROSEMIDE 40 MG TAB PO SCH (08:02)
[2016-10-03] MEDS: FINASTERIDE 5 MG TAB PO SCH (08:02)
[2016-10-03] MEDS: DRONABINOL 2.5 MG CAP PO SCH ×2 (08:13→20:59)
--- NOTE | 2016-10-03 08:41 | HP ---
DATE OF ADMISSION: 10/02/2016 I am covering for Dr. Olguin. CHIEF COMPLAINT: Weakness. HISTORY OF PRESENT ILLNESS: This 76-year-old gentleman with a past medical history of multiple medical problems including history of congestive heart failure, history of diabetes mellitus , history of GERD, history of myocardial infarction, history of DJD, history of prostate disease, pulmonary embolism being followed by Dr. Chito Olguin in the outpatient setting was recently admitted to [facility] with dehydration as well as liver cirrhosis and multiple other medical problems. The patient was treated conservatively. The patient improved and the patient went home. The patient was unable to ambulate. The patient was extremely weak and tired. Patient was not able to move and patient also had some nausea, vomiting, twice and the patient came to [facility] and was admitted for further evaluation and treatment. There is no history of any fever, rigors or chills. No history of headache, loss of consciousness or seizures. PAST MEDICAL HISTORY: History of CHF, history of diabetes, history of gastroesophageal reflux disease, myocardial infarction, DJD, history of prostate disorder, pulmonary embolization, history of back surgery, bowel resection, degenerative joint disease. Medications prior to admission include: 1. Flomax 0.4 daily. 2. Zoloft 50 mg. 3. Omeprazole 40 mg p.o. daily. 4. Magnesium oxide 400 mg p.o. daily. 5. Lantus 10 units subcutaneous daily. 6. Lasix 40 mg daily. 7. Proscar 5 mg p.o. daily. 8. Lovenox 100 mg milligrams subcu b.i.d. 9. Marinol 2.5 mg b.i.d. ALLERGIES: PENICILLIN. FAMILY HISTORY: History of cancer in the family. History of pancreatic cancer in the family. SOCIAL HISTORY: Previous history of smoking, no history of current smoking. No alcohol intake. REVIEW OF SYSTEMS: ENT: No diminished hearing. No diminished vision. CARDIOVASCULAR: No angina. RESPIRATORY: As mentioned earlier. GASTROINTESTINAL: As mentioned earlier. : As mentioned earlier. Nervous system: As mentioned earlier. MUSCULOSKELETAL: As mentioned earlier. HEMATOLOGY/ONCOLOGY: No history of anemia. ENDOCRINE: Diabetes. CONSTITUTIONAL: As mentioned earlier. DERMATOLOGY: Negative. RHEUMATOLOGY: Negative. PSYCHIATRY: As mentioned earlier. PHYSICAL EXAMINATION: The patient is alert and oriented times three. Pulse 52. Blood pressure 120/57. Respiratory rate 20. Temperature 97.3, pulse ox 100% on room air. HEENT: Conjunctivae normal. Oral mucosa moist. NECK: No jugular venous distention. No carotid bruit. No lymph node enlargement. CARDIOVASCULAR: S1, S2. No S3, no S4. RESPIRATORY: Breath sounds diminished at the bases. Bilateral scattered rhonchi and crackles. ABDOMEN: Soft, obese, nontender. No mass palpable. LEGS: Bilateral leg edema. Nervous system: Higher functions as mentioned earlier. Cranial nerves 2 thru 12 grossly intact. Moves all 4 limbs and diffuse weakness present, diffuse wasting also present. SKIN: No ulcer, rash or bleeding. LYMPHATICS: No lymph nodes palpable in the neck, axillae or groin. Joints: No active deforming arthropathy. LABS: Glucose 218, lactic acid 2.1. Magnesium 1.5. UA possible urinary tract infection. ASSESSMENT: 1. Urinary tract infection with sepsis, present on admission. 2. Generalized tiredness and weakness. 3. Pancreatic cancer with multiple METS. 4. Increased lactic acid 2.1. 5. Dehydration, present on admission because of diminished p.o. intake. 6. Increased alkaline phosphatase. 7. Mild hypoalbuminemia with mild to moderate protein calorie malnutrition. 8. History of congestive heart failure. 9. History of diabetes Type 2. 10. History of gastroesophageal reflux disease. 11. History of myocardial infarction. 12. History of degenerative joint disease. 13. History of pneumonia. 14. History of pulmonary embolus. 15. History of previous gram-negative bacteremia. 16. History of pancreatic cancer with chemotherapy. 17. History of gastric outlet obstruction. 18. History of bilateral tinnitus. 19. History of degenerative joint disease. 20. History of bowel resection. 21. History of IVC filter. 22. History of depression. RECOMMENDATIONS AND DISCUSSION: In this 76-year-old gentleman who presented with multiple medical problems, we will monitor the patient closely, continue with the current medications, continue symptomatic treatment, Hydrate carefully and also empiric antibiotics. Cultures. PT, OT evaluation; possible ECF rehab. Continue the rest of medications. A chest CTA was done during recent admission which showed no evidence of pulmonary embolism and small left pleural effusion, a right middle lobe spiculated infiltrate. The patient also had CAT scan of the abdomen and pelvis, which showed large mass in the region of the pancreatic head consistent with a tumor and biliary stent was also noted. Multiple low-density liver lesions concern for metastatic disease apparently increased. The prognosis is extremely guarded because of multiple complex medical issues. Further recommendations to follow. Also obtain evaluation by hematology/oncology also as well. Prognosis guarded. See orders for further details. The most recent chest x-ray showed trace bilateral pleural effusions. No significant changes. Once again, prognosis guarded. Further recommendations to follow. We will continue the hydration at we will repeat chest in the morning. See orders for further details. MTDD
[2016-10-03 12:10] LABS: Glucose,Whole Blood 165 mg/dL (75-99)
--- NOTE | 2016-10-03 14:21 | CONS ---
DATE OF CONSULTATION: October 03, 2016. REASON FOR CONSULTATION: Pancreatic cancer. CHIEF COMPLAINT: Complained of significant weakness. José Miguel is a very pleasant 76-year-old gentleman. He was admitted to the hospital who presented to the emergency department, on 10/01/2016 because of significant weakness and he could not able to stand up at home so he called his insurance agency manager and then subsequently he was brought into the hospital. He has had some nausea and vomiting for a few days prior to his hospitalization with a poor appetite. He is not sure how much weight he lost. He also has worsening leg edema. In the emergency department, he was found to be dehydrated and failure to thrive and hypomagnesemia and he ended up being admitted for further management. The patient is known to our office. He was initially seen by Dr. Siu in June 2014 for pancreatic carcinoma. His initial presentation was with dark colored urine and was found to have obstructive jaundice and a mass at the head of the pancreas. He underwent his initial ERCP by Dr. Araseli Garcia in the hospital. Subsequently was referred to Dr. Clark at [facility] in [place]. He had ERCP, and common bile duct plastic stent placement and endoscopic ultrasound and biopsy were positive for adenocarcinoma. At that time, he had locally advanced disease due to proximity to vasculature structure and he was seen by Dr. Siu for consideration of neoadjuvant treatment. He was started on initially combination of Abraxane and Gemzar. However, he developed significant weakness, anorexia and weight loss and subsequently was admitted to the hospital for colitis and he was transferred to rehab for 6 weeks. It was felt that he is not a candidate for further neoadjuvant chemotherapy and then subsequently had common bile duct stent was replaced by a metal stent and because further evaluation by Dr. Clark it was felt that he is not to be a surgical candidate. Then subsequently he was started on single agent Gemzar in October 2014, though he tolerated poorly and the dose was reduced by 20% and the schedule modified as well. He continued with Gemzar until February 2015 when he had further disease progression and then subsequently in May 2015, he was placed on single agent oral Xeloda. However, in July 2016, he had even further disease progression and after multiple discussions with Dr. Siu and then he was started on oral Tarceva on September 15, 2016. Overall, the patient is doing poorly. He is very weak. He has no appetite and progressive fatigue. He denies any fever or chills. No urine color was dark. He had no melena, hematochezia, hematuria, hemoptysis, hematemesis or epistaxis and he has some diarrhea and had some nausea but this has improved since he has been admitted to the hospital. His past medical history in addition to what is stated above, in regard to his pancreatic carcinoma: He has a history of diabetes, congestive heart failure, myocardial infarction and degenerative joint disease. He has pulmonary embolus, history for prostate cancer in the past and he has a history of liver cirrhosis. He had back surgery in the past for degenerative joint disease and bowel resection. He had history of cholecystectomy, back surgery, a total hip replacement, MediPort placement and ERCP. FAMILY HISTORY: For malignancy, his father had pancreatic cancer. ALLERGIES: ALLERGY TO PENICILLIN. CURRENT MEDICATIONS: 1. Marinol 2.5 mg b.i.d. 2. Lovenox 100 mg subcu every 12 hours. 3. Proscar 5 mg daily. 4. Lasix 40 mg p.o. daily. 5. [place] 5/325 mg daily. 6. Dilaudid IV as needed. 7. Insulin Lantus 20 units subcu daily. 8. Humalog sliding scale. 9. Lovenox 500 mg IV daily every 24 hours. 10. He is on Magnesium oxide 400 mg daily. 11. Melatonin 3 mg at bedtime. 12. Protonix 40 mg daily. 13. Zoloft 50 mg daily. 14. Flomax 0.4 mg daily. REVIEW OF SYSTEMS: Generalized weakness, fatigue, leg edema and some diarrhea, mild nausea and excessive weakness and fatigue. No fever or chills. No melena, hematochezia, hematuria, hemoptysis, hematemesis or epistaxis. Otherwise review of systems is negative. PHYSICAL EXAMINATION: He is alert, oriented x3. He does not appear to be in distress at this time. VITAL SIGNS: Temperature 97.0, afebrile, pulse 50 and regular, respirations 16, blood pressure 114/56. HEENT: Normocephalic, atraumatic. No obvious scleral icterus. Oral mucosa are intact, but dry. NECK: Supple. No jugular venous distention. CHEST: Equal expansion bilaterally. LUNGS: Clear to auscultation and percussion. HEART: Regular rate and rhythm. ABDOMEN: Soft. No tenderness. Mild ascites. No organomegaly or masses. Bowel sounds present. EXTREMITIES: 2+ pitting edema. SKIN: A few bruises. No ecchymosis or petechiae. LYMPHATICS: No peripherally enlarged cervical, supraclavicular lymphadenopathy. MUSCULOSKELETAL: Moving all extremities appropriately. No percussion tenderness of the cervical spine or sternum. LABORATORY DATA: Sodium 137, potassium 3.5, chloride 105, CO2 is 26, BUN is 19, creatinine 0.88, AST 17, ALT is 23, alkaline phosphatase 218, total bilirubin is 0.5. WBC 3.9, hemoglobin 10.3, hematocrit 34.3, platelets are 111. IMPRESSION: 1. Pancreatic carcinoma with diagnostic and therapeutic circumstances as stated above. The patient was last line of chemotherapy was oral Tarceva but appears to be tolerating it poorly. 2. Failure to thrive with progressive weakness and dehydration. 3. Anemia of chronic disease. 4. Thrombocytopenia likely related to peripheral sequestration. 5. Multiple other comorbidities and poor performance status. RECOMMENDATIONS: 1. Hold Tarceva for now. 2. ( ) IV hydration. 3. Replace electrolytes. 4. Overall prognosis felt to be very guarded in view of pancreatic carcinoma and multiple other comorbidities and poor performance status. The above was discussed with the patient in detail and I have answered all his questions. Thank you very much for asking me to participate in the care of this nice gentleman.
[2016-10-03 17:05] LABS: Glucose,Whole Blood 260 mg/dL (75-99)
--- NOTE | 2016-10-03 18:48 | PN ---
DATE OF SERVICE: 10/03/2016 I am covering for Dr. Olguin. This 76-year-old gentleman was admitted with weakness and possible UTI also. The patient had extensive past medical history. The patient was also having pancreatic cancer and the patient is on chemotherapy with Tarseva. Dr. Adkins is following the patient and recommended to hold Tarseva at this time. The patient is being closely monitored. The patient has generalized tiredness and weakness. PAST MEDICAL HISTORY: Reviewed. REVIEW OF SYSTEM: CARDIOVASCULAR: No angina or palpitations. GI: As mentioned earlier. : No dysuria or hematuria. NERVOUS SYSTEM: No numbness or weakness. Current medications: Reviewed, include [place] 5 mg, Marinol 2.5 b.i.d., Lovenox 100 mg subcu b.i.d., Proscar 5 mg daily, Lasix 40 mg p.o. daily, Dilaudid 0.5 mg every 6 p.r.n., Lantus 20 subcu daily, Humalog scale, Levaquin 500 daily, magnesium oxide 400 mg, melatonin 3 mg at bedtime, Narcan 0.2 p.r.n., Protonix 40 mg daily, Zoloft 50 mg at bedtime, Flomax 0.4 daily. PHYSICAL EXAMINATION: Patient is alert, oriented x3. Pulse 50 blood pressure 114/56, respirations 16, temperature 97 degrees, pulse ox 99% on 2 L. HEENT: Conjunctivae normal. NECK: No JVD. CARDIOVASCULAR: S1 and S2 muffled LUNGS: Breath sounds diminished at the bases. Bilateral scattered rhonchi and crackles. ABDOMEN: Soft, nontender. No masses palpable. Diffuse distention present. EXTREMITIES: Legs no edema. NERVOUS SYSTEM: No focal deficits. LABS: WBC 3, hemoglobin is 10.3, platelets 111. Otherwise albumin 2.2. ASSESSMENT: 1. Urinary tract infection with sepsis present on admission. 2. Generalized tiredness and weakness, multifactorial. 3. Pancreatic cancer with multiple metastases. 4. Increased lactic acid 2.1. 5. Dehydration, present on admission because of diminished p.o. intake. 6. Increase alkaline phosphatase. 7. Mild hypoalbuminemia with mild to moderate protein calorie malnutrition. 8. Congestive heart failure, ejection fraction unknown. 9. History of diabetes type 2. 10. History of gastroesophageal reflux disease. 11. History of myocardial infarction. 12. History of degenerative joint disease. 13. History of pneumonia. 14. History of pulmonary embolism. 15. Previous gram-negative bacteremia. 16. History of pancreatic cancer with chemotherapy. 17. History of gastric outlet obstruction. 18. History of bilateral tinnitus. 19. History of degenerative joint disease. 20. Bowel resection. 21. History of IVC filter. 22. History of depression. 23. FULL CODE. RECOMMENDATIONS AND DISCUSSION: In this 76-year-old gentleman who presented with multiple complex medical issues, we will monitor the patient closely, continue with current medications and symptomatic treatment. Cultures are negative so far. Continue with Levaquin. Continue with the rest of the medications. I would also recommend. PT, OT evaluation. Otherwise Dr. Adkins's input is appreciated. Guarded prognosis because of multiple complex medical issues. Further recommendations to follow.
[2016-10-03 20:51] LABS: Glucose,Whole Blood 165 mg/dL (75-99)
[2016-10-03] MEDS: MELATONIN 3 MG TABLET PO SCH (20:55)
[2016-10-03] MEDS: SERTRALINE 50 MG TAB PO SCH (20:55)
[2016-10-03] MEDS: LEVOFLOXACIN 500MG-D5W PMX 500 MG in DEXTROSE/WATER 1 100ML.BAG IVPB SCH (20:59)
[2016-10-04 07:27] LABS: Glucose,Whole Blood 190 mg/dL (75-99)
[2016-10-04] MEDS: INSULIN GLARGINE 100 UNIT/ML 10 ML VIAL SQ SCH (08:06)
[2016-10-04] MEDS: ENOXAPARIN 100 MG/ML SYRINGE SQ SCH ×2 (08:06→21:07)
[2016-10-04] MEDS: DRONABINOL 2.5 MG CAP PO SCH ×2 (08:06→21:07)
[2016-10-04] MEDS: FINASTERIDE 5 MG TAB PO SCH (08:07)
[2016-10-04] MEDS: PANTOPRAZOLE 40 MG TABLET PO SCH (08:07)
[2016-10-04] MEDS: MAGNESIUM OXIDE 400 MG TAB PO SCH (08:07)
[2016-10-04] MEDS: FUROSEMIDE 40 MG TAB PO SCH (08:07)
[2016-10-04] MEDS: INSULIN LISPRO (humaLOG) 300 UNIT/3 ML VIAL SQ SCH ×4 (08:07→22:03)
[2016-10-04 09:14] LABS: Anion Gap 4 mmol/L; Blood Urea Nitrogen 17 mg/dL (9-20); Calcium 8.1 mg/dL (8.4-10.2); Carbon Dioxide 28 mmol/L (22-30); Chloride 104 mmol/L (98-107); Glucose 178 mg/dL (74-99); Non-African American GFR(MDRD) >60 (>60 ml/min/1.73 sqM); Potassium 3.4 mmol/L (3.5-5.1); Sodium 136 mmol/L (137-145)
[2016-10-04] MEDS: SODIUM CHLORIDE 0.9% 1,000 ML IV SCH ×2 (09:17→21:09)
[2016-10-04] MEDS: TAMSULOSIN 0.4 MG CAP.ER.24H PO SCH (09:17)
[2016-10-04 09:27] LABS: Anisocytosis Slight; Basophils % (A) 0 %; CH 27.8; CHCM 30.4; Eosinophils # (A) 0.2 k/uL (0-0.7); Eosinophils % (A) 5 %; HCT 37.1 % (39.0-53.0); HDW 2.65; HGB 11.3 gm/dL (13.0-17.5); Hypochromasia Moderate; Luc # (Auto) 0.06; Luc % (Auto) 1; Lymphocytes % (A) 19 %; MCH 27.9 pg (25.0-35.0); MCHC 30.4 g/dL (31.0-37.0); MCV 91.7 fL (80.0-100.0); Mean Platelet Volume 9.1; Monocytes # (A) 0.2 k/uL (0-1.0); Monocytes % (A) 4 %; Neutrophils # (A) 3.5 k/uL (1.3-7.7); Neutrophils % (A) 70 %; RBC 4.05 m/uL (4.30-5.90); RDW 17.2 % (11.5-15.5); WBC (Perox) 5.16
[2016-10-04 11:48] LABS: Glucose,Whole Blood 153 mg/dL (75-99)
[2016-10-04] MEDS ORDERED: Potassium Replacement Protocol 1 EACH MISC MISCELLANE PRN (14:12)
--- NOTE | 2016-10-04 14:18 | P.PN ---
Subjective Patient is a 76-year-old male with medical history significant for pancreatic cancer admitted with generalized weakness and possible urinary tract infection. Patient is following with Dr. Adkins in the outpatient setting was recommended to hold Tarceva at this time. Patient is evaluated at bedside. Patient states he feels slightly better than yesterday. Reports minimal appetite. Denies chills, fevers, nausea, vomiting, shortness of breath, chest pain, or abdominal pain. Patient is urinating without difficulty. Afebrile. No evidence of leukocytosis. Hemoglobin stable 11.3. Potassium 3.4. Objective - Vital Signs Vital signs: Vital Signs Temp 96.6 F L 10/04/16 07:00 Pulse 39 L 10/04/16 07:00 Resp 18 10/04/16 07:00 BP 117/59 10/04/16 07:00 Pulse Ox 98 10/04/16 07:00 Intake & Output 10/03/16 10/04/16 10/04/16 18:59 06:59 18:59 Output Total 500 350 100 Balance -500 -350 -100 Weight 102 kg 102 kg 102 kg Output: Urine 500 350 100 Other: Voiding Method Urinal Urinal # Voids 2 - Exam GENERAL: Pt awake and alert, well-appearing, well-nourished, and in no acute distress. HEAD: Atraumatic, normocephalic. EYES: Pupils equal, round, and reactive to light, sclera anicteric, conjunctiva are normal. ENT: Moist mucous membranes. NECK:Supple without lymphadenopathy or JVD. LUNGS: Breath sounds clear to auscultation bilaterally. No wheezes, rales, or rhonchi. HEART: Heart S1, S2, no S3 or S4. Irregularly irregular. No murmurs, rubs or gallops. ABDOMEN: Soft, nontender, distended, normoactive bowel sounds. No guarding, no rebound. No masses or organomegaly appreciated. Ascites present EXTREMITIES: 2+ peripheral pulses. Right leg more edematous than left. No calf tenderness. NEUROLOGICAL: Pt oriented x 3. No focal deficits noted. Strength and sensation grossly intact. PSYCH: Normal mood, normal affect. SKIN: Warm, dry, intact. - Labs CBC & Chem 7: 10/04/16 07:59 10/04/16 07:59 Labs: Abnormal Lab Results - Last 24 Hours (Table) 10/03/16 10/03/16 10/04/16 Range/Units 16:57 20:46 07:08 RBC (4.30-5.90) m/uL Hgb (13.0-17.5) gm/dL Hct (39.0-53.0) % MCHC (31.0-37.0) g/dL RDW (11.5-15.5) % Plt Count (150-450) k/uL Sodium (137-145) mmol/L Potassium (3.5-5.1) mmol/L Glucose (74-99) mg/dL POC Glucose (mg/dL) 260 H 165 H 190 H (75-99) mg/dL Calcium (8.4-10.2) mg/dL 10/04/16 10/04/16 10/04/16 Range/Units 07:59 07:59 11:36 RBC 4.05 L (4.30-5.90) m/uL Hgb 11.3 L (13.0-17.5) gm/dL Hct 37.1 L (39.0-53.0) % MCHC 30.4 L (31.0-37.0) g/dL RDW 17.2 H (11.5-15.5) % Plt Count 131 L (150-450) k/uL Sodium 136 L (137-145) mmol/L Potassium 3.4 L (3.5-5.1) mmol/L Glucose 178 H (74-99) mg/dL POC Glucose (mg/dL) 153 H (75-99) mg/dL Calcium 8.1 L (8.4-10.2) mg/dL Microbiology - Last 24 Hours (Table) 10/03/16 15:30 Urine Culture - Preliminary Urine,Voided Assessment and Plan Plan: Impression: 1. Weakness to bilateral lower extremities, present on admission, improved. 2. Dehydration suspect secondary to nausea and vomiting, present on admission, improved. 3. Possible urinary tract infection, present on admission. 4. Liver cirrhosis with evidence of moderate ascites 4. Pancreatic cancer metastasized to liver with gastric outlet obstruction status post stent placement and gastrojejunostomy. 5. Spiculated infiltrate in right middle lobe, unchanged from previous exam. 6. History of right popliteal DVT. 7. Diabetes mellitus type 2. 8. History of GERD. 9. Hyperlipidemia. 10. History of pulmonary embolism status post Reji filter placement. 11. BPH. 13. Anemia of malignancy. 14. History of myocardial infarction. 15. History of E. coli bacteremia. 16. Chronic back pain with history of osteoarthritis. 17. History of small bowel obstruction status post bowel resection. 18. History of depression, stable. 19. Gait dysfunction. Patient uses cane or walker. 20. History of nicotine dependence. 21. History of EtOH abuse, quit approximately 3 years ago. Plan: Continue to monitor patient. Continue current medications. Continue Levaquin until urine cultures finalized. Replace electrolytes. Continue physical therapy. Continue follow with oncology. Continue GI and DVT prophylaxis. Repeat CBC BMP magnesium in a.m. Patient possibly discharge to ECF in next 24 hours. The above impression and plan have been discussed and directed by Dr. Olguin. Moo COPPOLA acting as scribe for Dr. Olguin.
[2016-10-04] MEDS: POTASSIUM CHLORIDE ER 20 MEQ TAB.ER PO SCH ×2 (16:29→17:18)
[2016-10-04 17:19] LABS: Glucose,Whole Blood 201 mg/dL (75-99)
[2016-10-04] MEDS: LEVOFLOXACIN 500MG-D5W PMX 500 MG in DEXTROSE/WATER 1 100ML.BAG IVPB SCH (21:07)
[2016-10-04] MEDS: MELATONIN 3 MG TABLET PO SCH (21:08)
[2016-10-04] MEDS: SERTRALINE 50 MG TAB PO SCH (21:08)
[2016-10-04 21:35] LABS: Glucose,Whole Blood 199 mg/dL (75-99)
[2016-10-05 07:35] LABS: Glucose,Whole Blood 176 mg/dL (75-99)
[2016-10-05] MEDS: ENOXAPARIN 100 MG/ML SYRINGE SQ SCH (08:46)
[2016-10-05] MEDS: INSULIN LISPRO (humaLOG) 300 UNIT/3 ML VIAL SQ SCH ×2 (08:46→13:14)
[2016-10-05] MEDS: FINASTERIDE 5 MG TAB PO SCH (08:46)
[2016-10-05] MEDS: INSULIN GLARGINE 100 UNIT/ML 10 ML VIAL SQ SCH (08:47)
[2016-10-05] MEDS: MAGNESIUM OXIDE 400 MG TAB PO SCH (08:47)
[2016-10-05] MEDS: TAMSULOSIN 0.4 MG CAP.ER.24H PO SCH (08:47)
[2016-10-05] MEDS: PANTOPRAZOLE 40 MG TABLET PO SCH (08:47)
[2016-10-05] MEDS: FUROSEMIDE 40 MG TAB PO SCH (08:48)
[2016-10-05] MEDS: DRONABINOL 2.5 MG CAP PO SCH (08:48)
[2016-10-05] MEDS ORDERED: POTASSIUM CHLORIDE ER 20 MEQ TAB.ER PO SCH (09:00)
[2016-10-05 10:14] LABS: Anisocytosis Slight; Basophils % (A) 1 %; CH 28.1; CHCM 31.6; Eosinophils # (A) 0.2 k/uL (0-0.7); Eosinophils % (A) 4 %; HCT 36.2 % (39.0-53.0); HDW 2.64; HGB 11.4 gm/dL (13.0-17.5); Hypochromasia Slight; Luc # (Auto) 0.04; Luc % (Auto) 1; Lymphocytes # (A) 0.9 k/uL (1.0-4.8); Lymphocytes % (A) 21 %; MCH 27.9 pg (25.0-35.0); MCHC 31.4 g/dL (31.0-37.0); Mean Platelet Volume 9.5; Monocytes # (A) 0.3 k/uL (0-1.0); Monocytes % (A) 6 %; Neutrophils % (A) 68 %; RBC 4.07 m/uL (4.30-5.90); RDW 17.2 % (11.5-15.5); WBC 4.5 k/uL (3.8-10.6); WBC (Perox) 4.24
[2016-10-05 11:09] LABS: Anion Gap 6 mmol/L; Blood Urea Nitrogen 14 mg/dL (9-20); Calcium 8.1 mg/dL (8.4-10.2); Carbon Dioxide 26 mmol/L (22-30); Chloride 105 mmol/L (98-107); Glucose 179 mg/dL (74-99); Non-African American GFR(MDRD) >60 (>60 ml/min/1.73 sqM); Potassium 3.7 mmol/L (3.5-5.1); Sodium 137 mmol/L (137-145)
[2016-10-05 11:48] VITALS: BMI 29.9
--- NOTE | 2016-10-05 12:26 | P.DS ---
Providers Date of admission: 10/02/16 00:45 Expected date of discharge: 10/05/16 Attending physician: Chito Olguin Consults: 10/02/16 17:45 Consult Physician Routine Consulting Provider: Christal Adkins Consult Reason/Comments: pancreatic cancer Do you want consulting provider notified?: Yes Primary care physician: Chito Olguin [place] [facility] Course: Patient is a 76-year-old male with past medical history for multiple medical problems including pancreatic cancer with metastasis, congestive heart failure, diabetes mellitus, GERD, myocardial infarction, degenerative joint disease, prostate disease, pulmonary embolism, as well as liver cirrhosis. Patient was recently admitted to [facility] for dehydration as well as generalized weakness and was treated conservatively. Patient was discharged home. Less than 8 hours later, patient presented to the emergency department with nausea, vomiting, and profound weakness and was readmitted. No history of fevers, rigors, or chills. Patient was started on empiric antibiotics for possible urinary tract infection and IV hydration. Patient was evaluated by oncologist, recommended that patient stop Tarceva. Final urine culture came back negative. Preliminary blood cultures with no growth after 24 hours. Patient improved with IV hydration and replacement of electrolytes. Patient was deemed stable for discharge to [facility] with close follow-up in the outpatient setting. Patient at this time declines hospice care. Discharge diagnoses: 1. Weakness to bilateral lower extremities, present on admission, improved. 2. Dehydration suspect secondary to nausea and vomiting, present on admission, improved. 3. Possible urinary tract infection, present on admission, ruled out. 4. Liver cirrhosis with evidence of moderate ascites 4. Pancreatic cancer metastasized to liver with gastric outlet obstruction status post stent placement and gastrojejunostomy. 5. Spiculated infiltrate in right middle lobe, unchanged from previous exam. 6. History of right popliteal DVT. 7. Diabetes mellitus type 2. 8. History of GERD. 9. Hyperlipidemia. 10. History of pulmonary embolism status post [place] filter placement. 11. BPH. 13. Anemia of malignancy. 14. History of myocardial infarction. 15. History of E. coli bacteremia. 16. Chronic back pain with history of osteoarthritis. 17. History of small bowel obstruction status post bowel resection. 18. History of depression, stable. 19. Gait dysfunction. Patient uses cane or walker. 20. History of nicotine dependence. 21. History of EtOH abuse, quit approximately 3 years ago. The above impression and plan have been discussed and directed by Dr. Olguin. Moo COPPOLA acting as scribe for Dr. Olguin. Pertinent Studies: Abdomen x-ray; chest x-ray; EKG Patient Condition at Discharge: Stable Plan - Discharge Summary New Discharge Prescriptions: New HYDROcodone/APAP 5-325MG [Beverly 5-325] 1 each PO Q6HR PRN #28 tab PRN Reason: Moderate Pain INSULIN LISPRO (humaLOG) [humaLOG (formulary)] 0 unit SQ ACHS vial Levofloxacin [Levaquin] 500 mg PO DAILY #4 tab Melatonin 3 mg PO HS tab Continue Tamsulosin HCl [Flomax] 0.4 mg PO DAILY Sertraline [Zoloft] 50 mg PO HS Finasteride [Proscar] 5 mg PO DAILY Magnesium Oxide [Mag-Ox] 400 mg PO DAILY Enoxaparin [Lovenox] 100 mg SQ Q12HR #30 syringe Dronabinol [Marinol] 2.5 mg PO BID #30 capsule Furosemide [Lasix] 40 mg PO DAILY Omeprazole 40 mg PO DAILY Insulin Glargine,Hum.rec.anlog [Lantus Solostar] 20 unit SQ DAILY Discharge Medication List Finasteride [Proscar] 5 mg PO DAILY 04/11/16 [History] Sertraline [Zoloft] 50 mg PO HS 04/11/16 [History] Tamsulosin HCl [Flomax] 0.4 mg PO DAILY 04/11/16 [History] Magnesium Oxide [Mag-Ox] 400 mg PO DAILY 05/26/16 [History] Dronabinol [Marinol] 2.5 mg PO BID #30 capsule 08/09/16 [Rx] Enoxaparin [Lovenox] 100 mg SQ Q12HR #30 syringe 08/09/16 [Rx] Furosemide [Lasix] 40 mg PO DAILY 09/27/16 [History] Insulin Glargine,Hum.rec.anlog [Lantus Solostar] 20 unit SQ DAILY 09/27/16 [ History] Omeprazole 40 mg PO DAILY 09/27/16 [History] HYDROcodone/APAP 5-325MG [Beverly 5-325] 1 each PO Q6HR PRN #28 tab 10/05/16 [Rx] INSULIN LISPRO (humaLOG) [humaLOG (formulary)] 0 unit SQ ACHS vial 10/05/16 [Rx ] Levofloxacin [Levaquin] 500 mg PO DAILY #4 tab 10/05/16 [Rx] Melatonin 3 mg PO HS tab 10/05/16 [Rx] Follow up Appointment(s)/Referral(s): Chito Olguin DO [Primary Care Provider] - 1-2 days Christal Adkins MD [STAFF PHYSICIAN] - 2 Weeks Discharge Disposition: TRANSFER TO SNF/ECF
[2016-10-05 12:48] LABS: Glucose,Whole Blood 190 mg/dL (75-99)
[2016-10-05] MEDS: SODIUM CHLORIDE 0.9% 1,000 ML IV SCH (13:16)
[2016-10-05 14:30] VITALS: BP 86/46; PULSE 43; RESP 17; TEMP 96.7
--- NOTE | 2016-10-08 14:31 | CDI ---
Date: 10/08/2016 2:18:00 PM From: Marisela Gill, Rn Endocrinology Admit Date: 10/02/2016 12:45:00 AM Patient Name: José Miguel Mariano Visit Number: [id number] Discharge Date: Dr. Chito Olguin Sepsis and UTI are both documented on H&P and first progress note. The UTI is said to be ruled out on the discharge summary. On admission vitals are: Pulse 52, BP 120/57, Resp 20,temp 97.3 and WBC 5.0. Patient was given IV hydration and Levaquin. In your professional opinion, can you please clarify ____? Sepsis ruled in Sepsis ruled out Other Unable to determine Please document in your progress notes and discharge summary in order to capture severity of illness and risk of mortality. Include clinical findings that support your diagnosis. FYI: Press F11 to launch patient chart. Place X here if this finding has no clinical significance, is not applicable or if you are not able to provide any additional documentation. FRANCES
--- NOTE | 2016-10-18 12:20 | CDI ---
In responding to this query, please exercise your independent professional judgment. The [facility] Coding Staff and Clinical Documentation Specialists appreciate your assistance in clarifying documentation, maintaining compliance with coding guidelines, accurately documenting patients condition and capturing severity of illness. The fact that a question is asked does not imply that any particular answer is desired or expected. Communication forms are a method of clarifying documentation and are not made part of the Legal Health Record. Thank you in advance for your clarification. Last Revision, March 2015 Date: 10/08/2016 2:18:00 PM From: Jenny Bradford Phone: Admit Date: 10/02/2016 12:45:00 AM Patient Name: Kostas Marianonadeem Ojeda Visit Number: [id number] Discharge Date: Dr. Chito Olguin .Date: 10/08/2016 2:18:00 PM From: Marisela Gill, Salvage Grinder Admit Date: 10/02/2016 12:45:00 AM Patient Name: José Miguel Mariano Lynette Visit Number: [id number] Discharge Date: Dr. Chito Olguin Sepsis and UTI are both documented on H&P and first progress note. The UTI is said to be ruled out on the discharge summary. On admission vitals are: Pulse 52, BP 120/57, Resp 20temp 97.3 and WBC 5.0. Patient was given IV hydration and Levaquin. In your professional opinion, can you please clarify ____? Sepsis ruled in Sepsis ruled out Other Unable to determine Please document in your progress notes and discharge summary in order to capture severity of illness and risk of mortality. Include clinical findings that support your diagnosis. FYI: Press F11 to launch patient chart. Place X here if this finding has no clinical significance, is not applicable or if you are not able to provide any additional documentation. FRANCES
--- NOTE | 2016-10-26 07:25 | CDI ---
.Date: 10/08/2016 2:18:00 PM From: Marisela Gill, Shake Out Worker Admit Date: 10/02/2016 12:45:00 AM Patient Name: José Miguel Mariano Visit Number: [id number] Discharge Date: Dr. Chito Olguin Sepsis and UTI are both documented on H&P and first progress note. The UTI is said to be ruled out on the discharge summary. On admission vitals are: Pulse 52, BP 120/57, Resp 20temp 97.3 and WBC 5.0. Patient was given IV hydration and Levaquin. In your professional opinion, can you please clarify ____? Sepsis ruled in Sepsis ruled out Other Unable to determine Please document as an addendum to the Discharge Summary FYI: Press F11 to launch patient chart. Place X here if this finding has no clinical significance, is not applicable or if you are not able to provide any additional documentation. FRANCES
== END 2016-10-05 16:04 | DRG 641 ==
LOC: EC 23:04 → 4MS4W 10-02 00:45
PROVIDERS: ADMIT Family Medicine; ATTEND Family Medicine
DX: E86.0 Dehydration (principal); E44.0 Moderate protein-calorie malnutrition; C78.7 Secondary malignant neoplasm of liver and intrahepatic bile duct; D69.59 Other secondary thrombocytopenia; R18.8 Other ascites; C25.9 Malignant neoplasm of pancreas, unspecified; I50.9 Heart failure, unspecified; D63.0 Anemia in neoplastic disease; K74.60 Unspecified cirrhosis of liver; E83.42 Hypomagnesemia; E11.9 Type 2 diabetes mellitus without complications; E78.5 Hyperlipidemia, unspecified; G89.29 Other chronic pain; I25.2 Old myocardial infarction; K21.9 Gastro-esophageal reflux disease without esophagitis; N40.0 Benign prostatic hyperplasia without lower urinary tract symptoms; R62.7 Adult failure to thrive; Z79.4 Long term (current) use of insulin; Z79.899 Other long term (current) drug therapy; Z80.0 Family history of malignant neoplasm of digestive organs; Z85.46 Personal history of malignant neoplasm of prostate; Z86.711 Personal history of pulmonary embolism; Z86.718 Personal history of other venous thrombosis and embolism; Z87.01 Personal history of pneumonia (recurrent); Z87.891 Personal history of nicotine dependence; Z96.641 Presence of right artificial hip joint; Z88.0 Allergy status to penicillin; Z98.84 Bariatric surgery status
CPT/HCPCS: 36415; 71020; 74000; 80048; 80053; 81001; 82150; 82550; 82553; 83036; 83605; 83690; 83735; 83880; 85025; 87040; 87086; 93005; 96361; 96365; 99285